=== PATIENT | female | born 1980 | race Hispanic/Latino ===

== ENCOUNTER 2016-12-21 00:15 | Emergency (ER) | payer SELFPAY ==
--- NOTE | 2016-12-21 00:46 | C.PDOC ---
History Of Present Illness 36 year old female who presents to the ER for detox from ETOH. Patient reports she drinks 2 pints of vodka daily; last drink was 2 hours ago. Boyfriend at bedside states patient was intoxicated and somnolent at home; she appears awake and alert now. Denies any physical complaints at this time. Time Seen by Provider: 12/21/16 00:38 Chief Complaint (Nursing): Substance Abuse History Per: Patient History/Exam Limitations: no limitations Onset/Duration Of Symptoms: Days Current Symptoms Are (Timing): Still Present Suicide/Self Injury Attempted (Context): None Modifying Factor(s): Alcohol Associated Symptoms: denies: Depression, Suicidal Thoughts, Suicidal Plan Involuntary Hold By: None Recent travel outside of the [place]: No Past Medical History Reviewed: Historical Data, Nursing Documentation, Vital Signs Vital Signs: Last Vital Signs Temp 97.5 F L 12/21/16 00:55 Pulse 99 H 12/21/16 00:55 Resp 14 12/21/16 00:55 BP 140/90 12/21/16 00:55 Pulse Ox 99 12/21/16 00:55 - Medical History PMH: No Chronic Diseases Surgical History: No Surg Hx Family History: States: Unknown Family Hx - Social History Hx Alcohol Use: Yes Hx Substance Use: No - Immunization History Hx Tetanus Toxoid Vaccination: No Hx Influenza Vaccination: No Hx Pneumococcal Vaccination: No Review Of Systems Constitutional: Negative for: Fever, Chills Gastrointestinal: Negative for: Nausea, Vomiting Physical Exam - Physical Exam Appears: Non-toxic, No Acute Distress, Other (ETOH on breath) Skin: Normal Color, Warm, Dry Head: Atraumatic, Normacephalic Oral Mucosa: Moist Chest: Symmetrical, No Tenderness Cardiovascular: Rhythm Regular, No Murmur Respiratory: Normal Breath Sounds, No Rales, No Rhonchi, No Wheezing Neurological/Psych: Oriented x3, Normal Speech, Normal Cognition ED Course And Treatment O2 Sat by Pulse Oximetry: 97 (Room air) Pulse Ox Interpretation: Normal Progress Note: Case discussed with Crisis, no detox beds available; patient even list of available detox sites in the area. Medical Decision Making Medical Decision Making: alcohol abuse and presently intoxicated- drank 2 pts today seeking detox, no beds available no s/s of withdrawal now- unable to admit medically. Disposition Doctor Will See Patient In The: Office Counseled Patient/Family Regarding: Studies Performed, Diagnosis - Disposition Referrals: Alcoholics Anonymous [Outside] [facility] [Outside] [facility] [Outside] Disposition: HOME/ ROUTINE Disposition Time: 00:50 Condition: GOOD Additional Instructions: seek detox programs through our Crisis Center or local programs. Curb your alcohol abuse as much as possible. Instructions: Abuse of Alcohol (ED) - Clinical Impression Clinical Impression: Alcohol abuse - Scribe Statement The provider has reviewed the documentation as recorded by the Scribflakito Saini All medical record entries made by the Scribe were at my direction and personally dictated by me. I have reviewed the chart and agree that the record accurately reflects my personal performance of the history, physical exam, medical decision making, and the department course for this patient. I have also personally directed, reviewed, and agree with the discharge instructions and disposition.
[2016-12-21 01:01] VITALS: BP 140/90; PULSE 99; RESP 14; TEMP 97.5
[2016-12-21 03:29] VITALS: O2SAT 97
== END 2016-12-21 01:15 | disposition home or self-care (01) ==
LOC: C.ER 00:15
DX: F10.10 Alcohol abuse, uncomplicated (principal); Y90.9 Presence of alcohol in blood, level not specified

== ENCOUNTER 2016-12-30 00:55 | Inpatient (IN) | payer MEDICARE, OTHER ==
[2016-12-30 01:07] VITALS: BMI 33.3
[2016-12-30] MEDS ORDERED: Sodium Chloride 0.9% 1,000 ML IV ONE (01:07)
[2016-12-30] MEDS ORDERED: Naloxone 0.4 mg/ml Inj (Adult) IVP STA (01:07)
[2016-12-30] MEDS ORDERED: Dextrose 50% SYRINGE Inj (50 ml) IVP STA (01:07)
[2016-12-30 01:17] LABS: BASO # 0.2 K/uL (0.0-0.2); EOS # 0.1 K/uL (0.0-0.7); HEMOGLOBIN 13.4 g/dL (11.0-16.0); WHITE BLOOD COUNT 14.2 K/uL (4.8-10.8)
--- NOTE | 2016-12-30 01:17 | C.PDOC ---
History Of Present Illness 36 year old female brought to ER by boyfriend after she claimed she wanted to harm herself half an hour prior to his arrival at home. Boyfriend reports patient was in a normal state of mind; he notes she has access to marijuana and vodka at home- bought a pint of vodka just 2 hrs ago. She told roomate she took an unknown number of "pills" at home, but only OTC motrin/Tylenol/cold medicine in the house. has been taking Tylenol Cold medicines about 2 capsules twice a day for the past 2 days for URI symptoms. Brought to ED in pt's car. Helped into ED by Staff and immedaitly placed on a strecher. Patient has a hx of bipolar disorder and has been off her medication for years. per pt had access to Xanax yesterday and today, but none can be found now. pt obtunded and nonverbal at this time. Time Seen by Provider: 12/30/16 01:06 History Per: Patient History/Exam Limitations: no limitations Onset/Duration Of Symptoms: Hrs Current Symptoms Are (Timing): Still Present Suicide/Self Injury Attempted (Context): None Modifying Factor(s): Alcohol, Marijuana Associated Symptoms: Suicidal Thoughts. denies: Depression, Suicidal Plan Involuntary Hold By: None Recent travel outside of the [place]: No Past Medical History Reviewed: Historical Data, Nursing Documentation, Vital Signs Vital Signs: Last Vital Signs Temp 97.8 F 12/30/16 12:00 Pulse 134 H 12/30/16 12:20 Resp 23 12/30/16 12:20 BP 171/100 H 12/30/16 11:30 Pulse Ox 96 12/30/16 12:00 - Medical History PMH: No Chronic Diseases Surgical History: No Surg Hx Family History: States: Unknown Family Hx - Social History Hx Alcohol Use: Yes Hx Substance Use: No - Immunization History Hx Tetanus Toxoid Vaccination: No Hx Influenza Vaccination: No Hx Pneumococcal Vaccination: No Review Of Systems Constitutional: Negative for: Fever, Chills Gastrointestinal: Negative for: Nausea, Vomiting, Diarrhea Physical Exam - Physical Exam Appears: Non-toxic, Other (ETOH on breath, Obtunded) Skin: Normal Color, Warm, Dry Head: Atraumatic, Normacephalic Eye(s): bilateral: EOMI, Other (Disconjugated pin point pupils) Oral Mucosa: Moist Chest: Symmetrical, No Tenderness Cardiovascular: Rhythm Regular, No Murmur Respiratory: Normal Breath Sounds, No Rales, No Rhonchi, No Wheezing, Other ( Shallow respirations) Gastrointestinal/Abdominal: Soft, No Tenderness Neurological/Psych: Oriented x3, Normal Speech, Normal Cognition ED Course And Treatment - Laboratory Results Result Diagrams: 12/30/16 04:26 12/30/16 04:26 Lab Interpretation: Abnormal (ua neg, 2-hr Tylenol level 61 (if presumed took OD of Tylenol @ 2300), INR wnl, tox + cocaine, benzos, etoh 222 H) Urine POC: Negative ECG: Interpreted By Me ECG Rhythm: Sinus Tachycardia ECG Interpretation: Abnormal (no prolonged QT) Rate From EC O2 Sat by Pulse Oximetry: 96 Pulse Ox Interpretation: Normal - Radiology CXR: Interpreted by Me CXR Interpretation: Yes: No Acute Disease Progress Note: EKG, blood work, CXR, and urinalysis ordered. Dextrose, narcan, zofran, and IV fluids administered. Reevaluation Time: 01:45 (noted elevated Tylenol level 60's which may be c/w use of Tylenol Cold medicines over the past 2 days, but in light of suspected intentional overdose Acetadote immediately ordered and ICU consult ) - Physician Consult Information Outcome Of Conversation: 0145: d/w Dr. Burrows- Hospitalist/ICU Digital Associate- ok to ICU. Will discuss intubation pending ABG and U-tox. 0215: pt turned over to ICU, pt stable, unconscious, protecting airway, no vomiting, VSS, @ bedside. Critical Care Time - Critical Care Note Total Time (in mins): 90 Documented critical care: time excludes all time spent performing seperately billable procedures. Medical Decision Making Medical Decision Makin: accepted to ICU Acetadote inital bolus 150 mg /kg x 80 kg (estimated) = 1200 mg pending f/u Acetadote drips pending Tylenol level curve; 0300: 50 mg/kg over 4 hrs = 4000 mg 0700 100 mg/kg over 16 hrs = [address] in pt neurologically normal 2 hrs ago and strong evidence of intentional overdose and no brain trauma/injury. A/P: cocaine, benzo, etoh abuse. ? tylenol/cold and or tylenol OD, elevated level @ 2 hrs post-ingestion but could be c/w prior known use of cold med preparation Case d/w Poison Control- appreciated NAC 24 hr protocol started empirically, pending repeat levels, follow INR and LFT's Benadryl in Tylenol Cold med prep may offer serotonin syndrome s/s, QT wnl so far, pending repeat. Defer intubation for now, pt stable. Disposition Doctor Will See Patient In The: Hospital Counseled Patient/Family Regarding: Studies Performed - Disposition Disposition: HOSPITALIZED Disposition Time: 02:15 Condition: GUARDED - Clinical Impression Clinical Impression: Tylenol ingestion, Suicide attempt by drug ingestion - Scribe Statement The provider has reviewed the documentation as recorded by the Scribe Chano Saini All medical record entries made by the Scribe were at my direction and personally dictated by me. I have reviewed the chart and agree that the record accurately reflects my personal performance of the history, physical exam, medical decision making, and the department course for this patient. I have also personally directed, reviewed, and agree with the discharge instructions and disposition.
[2016-12-30 01:19] LABS: BASO % 1.1 % (0.0-2.0); EOS % 0.8 % (0.0-4.0); LYMPH # 2.7 K/uL (1.0-4.3); LYMPH % 19.2 % (20.0-40.0); MEAN CORPUSCULAR HEMOGLOBIN 30.1 pg (27.0-31.0); MEAN CORPUSCULAR HGB CONC 32.7 g/dL (33.0-37.0); MONO # 0.9 K/uL (0.0-0.8); NEUT # 10.3 K/uL (1.8-7.0); NEUT % 72.9 % (50.0-75.0); RBC 4.46 Mil/uL (3.80-5.20); RED CELL DISTRIBUTION WIDTH 15.3 % (11.5-14.5)
[2016-12-30] MEDS ORDERED: Dextrose 50% SYRINGE Inj (50 ml) ONE (01:19)
[2016-12-30 01:24] LABS: ALBUMIN 3.9 g/dL (3.5-5.0)
[2016-12-30 01:27] LABS: ALB/GLOB RATIO 1.4 (1.0-2.1); AST/SGOT 19 U/L (14-36); GFR AFRICAN-AMERICAN > 60; GFR NON-AFRICAN AMERICAN > 60
[2016-12-30 01:28] LABS: ALT/SGPT 33 U/L (9-52); BLOOD UREA NITROGEN 12 mg/dL (7-17); SALICYLATE < 1.0 mg/dL 1
[2016-12-30] MEDS ORDERED: DEXTROSE 5% IVPB STA ×2 (01:38→01:41)
[2016-12-30] MEDS ORDERED: ACETYLCYSTEINE IVPB STA ×2 (01:38→01:41)
[2016-12-30] MEDS ORDERED: WATER IVPB STA ×2 (01:38→01:41)
[2016-12-30] MEDS ORDERED: Acetylcysteine 12,000 MG in Dextrose 5% In Water 200 ML IVPB STA (01:43)
[2016-12-30 02:03] LABS: HCG,QUALITATIVE URINE NEGATIVE (NEGATIVE)
[2016-12-30 02:04] LABS: URINE BILIRUBIN NEGATIVE (NEGATIVE); URINE BLOOD NEGATIVE (NEGATIVE); URINE CLARITY Clear (Clear); URINE COLOR YELLOW (YELLOW); URINE GLUCOSE (UA) 3+ mg/dL (Normal)
[2016-12-30 02:05] LABS: URINE LEUKOCYTE ESTERASE NEGATIVE Leu/uL (Negative); URINE NITRATE NEGATIVE (NEGATIVE); URINE PROTEIN NEGATIVE (NEGATIVE); URINE UROBILINOGEN Normal mg/dL (0.2-1.0)
[2016-12-30 02:15] LABS: BARBITURATES, UR NEGATIVE (NEGATIVE)
[2016-12-30 02:16] LABS: ABG ALLEN TEST POS; ARTERIAL BLOOD GAS HCO3 20.3 mmol/L (21-28); ARTERIAL BLOOD GAS O2 SAT 97.7 % (95-98); ARTERIAL BLOOD GAS PCO2 33 mm/Hg (35-45); ARTERIAL BLOOD GAS PH 7.36 (7.35-7.45); ARTERIAL BLOOD GAS PO2 82 mm/Hg (80-100); ARTERIAL BLOOD GAS TCO2 19.6 mmol/L (22-28)
[2016-12-30 02:17] LABS: OPIATES, UR NEGATIVE (NEGATIVE)
[2016-12-30 02:18] LABS: PHENCYCLIDINE, UR NEGATIVE (NEGATIVE)
[2016-12-30 02:31] LABS: BENZODIAZEPINES, UR POSITIVE (NEGATIVE)
[2016-12-30] MEDS ORDERED: DEXTROSE 5% IVPB ONE ×2 (03:00→08:00)
[2016-12-30] MEDS ORDERED: ACETYLCYSTEINE IVPB ONE ×2 (03:00→08:00)
[2016-12-30] MEDS ORDERED: WATER IVPB ONE ×2 (03:00→08:00)
[2016-12-30] MEDS: Dextrose 5%/Lactated Ringer's 1,000 ML IV SCH ×3 (03:08→09:39)
[2016-12-30 04:29] LABS: BASO # 0.1 K/uL (0.0-0.2); BASO % 0.7 % (0.0-2.0); EOS % 0.2 % (0.0-4.0); HEMOGLOBIN 13.2 g/dL (11.0-16.0); LYMPH # 1.6 K/uL (1.0-4.3); LYMPH % 9.4 % (20.0-40.0); MEAN CELL VOLUME 91.7 fL (81.0-99.0); MEAN CORPUSCULAR HEMOGLOBIN 29.8 pg (27.0-31.0); MEAN CORPUSCULAR HGB CONC 32.5 g/dL (33.0-37.0); MEAN PLATELET VOLUME 8.1 fL (7.2-11.7); MONO # 0.9 K/uL (0.0-0.8); MONO % 5.1 % (0.0-10.0); NEUT % 84.6 % (50.0-75.0); PLATELET COUNT 293 K/uL (130-400); RBC 4.43 Mil/uL (3.80-5.20); RED CELL DISTRIBUTION WIDTH 15.3 % (11.5-14.5); WHITE BLOOD COUNT 16.6 K/uL (4.8-10.8)
[2016-12-30 04:39] LABS: ALBUMIN 3.9 g/dL (3.5-5.0)
[2016-12-30 04:42] LABS: ALB/GLOB RATIO 1.3 (1.0-2.1); ALT/SGPT 26 U/L (9-52); AST/SGOT 36 U/L (14-36); BLOOD UREA NITROGEN 9 mg/dL (7-17); CALCIUM 8.2 mg/dl (8.6-10.4); GFR AFRICAN-AMERICAN > 60; GFR NON-AFRICAN AMERICAN > 60
[2016-12-30 05:27] LABS: BANDS 1 % (0-2); LYMPHOCYTE 9 % (20-40); MONOCYTE 7 % (0-10); NEUTROPHIL 83 % (50-75); PLATELET ESTIMATE NORMAL (NORMAL); TOTAL CELLS COUNTED 100
--- NOTE | 2016-12-30 06:27 | CP.PCM.HP ---
<Hector Fofana E - Last Filed: 12/30/16 07:20> History of Present Illness - History of Present Illness History of Present Illness: CC: Suicidal Ideation HPI: Patient is a 36 year old female with a past medical history of bipolar disorder, alcohol abuse, cocaine/heroine abuse who was brought to the ED by her boyfriend. Patient was obtunded and non-verbal upon arrival to the ED. Patient 's boyfriend reports that patient was in a normal state of mind during the week until she called him at work today stating that " I cannot do this anymore, life is not fair.'' Patient became worried so he called their roommate to check on the patient at home. Patient was found by the roommate at home and told the roommate that she took an unknown number of "pills" at home, but only OTC motrin /Tylenol/cold medicine are in the house. Shortly after, patient's boyfriend arrived at home and noted that patient had access to marijuana and vodka at home - bought a pint of vodka just 2 hrs ago. Patient's boyfriend decide to drive patient to the hospital, who then became less alert and awake during the car ride. Furthermore, patient's boyfriend states that patient meet a addison during the week who is able to supply her with cocaine and also reported that patient has been binge drinking for the past 6 weeks. Patient's boyfriend reports that patient has been off her bipolar medications for years but had access to xanax yesterday and today. Patient vomited in the ED after narcan was given. PMD: None PMHx: Bipolar, alcohol abuse, heroine and cocaine abuse PSHx: None FHx: Unknown Medications: None Allergies: Cephalexin, clindamycin, penicillins and Sulfa Social Hx: Lives with boyfriend Medications given in the ER: Narcan 0.8mg IV, Zofran 4mg IV, Dextrose 50% injection, Acetylcysteine Present on Admission - Present on Admission Any Indicators Present on Admission: No Review of Systems - Constitutional Additional comments: Unable to evalaute as patient was obtunded and non-verbal - Cardiovascular Additional comments: Unable to evalaute as patient was obtunded and non-verbal - Gastrointestinal Additional comments: Unable to evalaute as patient was obtunded and non-verbal - Genitourinary Additional comments: Unable to evalaute as patient was obtunded and non-verbal - Neurological Additional comments: Unable to evalaute as patient was obtunded and non-verbal - Psychiatric Psychiatric: Suicidal Ideation - Endocrine Additional Comments: Unable to evalaute as patient was obtunded and non-verbal Past Patient History - Past Medical History & Family History Past Medical History?: Yes - Past Social History Smoking Status: Never Smoked - PULMONARY Hx Respiratory Disorders: No - NEUROLOGICAL Hx Neurological Disorder: No - HEENT Hx HEENT Problems: No - RENAL Hx Chronic Kidney Disease: No - ENDOCRINE/METABOLIC Hx Endocrine Disorders: No - HEMATOLOGICAL/ONCOLOGICAL Hx Blood Disorders: No - INTEGUMENTARY Hx Dermatological Problems: No - MUSCULOSKELETAL/RHEUMATOLOGICAL Hx Musculoskeletal Disorders: No - GASTROINTESTINAL Hx Gastrointestinal Disorders: No - GENITOURINARY/GYNECOLOGICAL Hx Genitourinary Disorders: No - PSYCHIATRIC Hx Psychophysiologic Disorder: Yes Hx Bipolar Disorder: Yes (has been off meds xyears) Hx Substance Use: Yes (marijuana) - SURGICAL HISTORY Hx Surgeries: No - ANESTHESIA Hx Anesthesia: No Meds Allergies/Adverse Reactions: Allergies Allergy/AdvReac Type Severity Reaction Status Date / Time cephalexin [From Keflex] Allergy Verified 12/21/16 00:31 clindamycin Allergy Verified 12/21/16 00:31 Penicillins Allergy Verified 12/21/16 00:31 Sulfa (Sulfonamide Allergy Verified 12/21/16 00:31 Antibiotics) Physical Exam - Constitutional Additional comments: Obtunded and non-verbal - Head Exam Head Exam: ATRAUMATIC - ENT Exam ENT Exam: Mucous Membranes Moist, Normal Exam - Respiratory Exam Respiratory Exam: Clear to Auscultation Bilateral, NORMAL BREATHING PATTERN - Cardiovascular Exam Cardiovascular Exam: REGULAR RHYTHM, +S1, +S2 - GI/Abdominal Exam GI & Abdominal Exam: Normal Bowel Sounds, Soft - Extremities Exam Extremities exam: Positive for: normal capillary refill, normal inspection - Psychiatric Exam Psychiatric exam: Suicidal Ideation - Skin Skin Exam: Dry, Normal Color, Warm Results - Vital Signs Recent Vital Signs: Last Vital Signs Temp 98.7 F 12/30/16 04:00 Pulse 107 H 12/30/16 05:29 Resp 25 H 12/30/16 05:29 BP 156/90 H 12/30/16 05:30 Pulse Ox 97 12/30/16 05:29 - Labs Result Diagrams: 12/30/16 04:26 12/30/16 04:26 Labs: Laboratory Results - last 24 hr 12/30/16 12/30/16 12/30/16 02:00 02:02 04:26 WBC RBC Hgb Hct MCV MCH MCHC RDW Plt Count MPV Neut % (Auto) Lymph % (Auto) [place] % (Auto) Eos % (Auto) Baso % (Auto) Neut # Lymph # [place] # Eos # Baso # Neutrophils % (Manual) Band Neutrophils % Lymphocytes % (Manual) Monocytes % (Manual) Platelet Estimate Puncture Site Rradial pCO2 33 L pO2 82 HCO3 20.3 L ABG pH 7.36 ABG Total CO2 19.6 L ABG O2 Saturation 97.7 ABG Base Excess -5.9 L Karsten Test Pos ABG Potassium 3.3 L A-a O2 Difference 198.0 Respiratory Index 2.4 Sodium 142.0 Chloride 111.0 H Glucose 123 H Lactate 2.0 Liter Flow 6.0 FiO2 45.0 Potassium Carbon Dioxide Anion Gap BUN Creatinine Est GFR ( Amer) Est GFR (Non-Af Amer) Random Glucose Calcium Total Bilirubin AST ALT Alkaline Phosphatase Total Protein Albumin Globulin Albumin/Globulin Ratio Arterial Blood Potassium 3.3 L Urine Color Yellow Urine Clarity Clear Urine pH 6.0 Ur Specific Anita 1.002 L Urine Protein Negative Urine Glucose (UA) 3+ H Urine Ketones Negative Urine Blood Negative Urine Nitrate Negative Urine Bilirubin Negative Urine Urobilinogen Normal Ur Leukocyte Esterase Negative Urine Microscopic WBC 1 Urine HCG, Qual Negative Valproic Acid < 10.0 L 12/30/16 12/30/16 04:26 04:26 WBC 16.6 H RBC 4.43 Hgb 13.2 Hct 40.6 MCV 91.7 MCH 29.8 MCHC 32.5 L RDW 15.3 H Plt Count 293 MPV 8.1 Neut % (Auto) 84.6 H Lymph % (Auto) 9.4 L [place] % (Auto) 5.1 Eos % (Auto) 0.2 Baso % (Auto) 0.7 Neut # 14.0 H Lymph # 1.6 [place] # 0.9 H Eos # 0.0 Baso # 0.1 Neutrophils % (Manual) 83 H Band Neutrophils % 1 Lymphocytes % (Manual) 9 L Monocytes % (Manual) 7 Platelet Estimate Normal Puncture Site pCO2 pO2 HCO3 ABG pH ABG Total CO2 ABG O2 Saturation ABG Base Excess [place] Test ABG Potassium A-a O2 Difference Respiratory Index Sodium 143 Chloride 104 Glucose Lactate Liter Flow FiO2 Potassium 4.2 Carbon Dioxide 17 L Anion Gap 26 H BUN 9 Creatinine 0.5 L Est GFR ( Amer) > 60 Est GFR (Non-Af Amer) > 60 Random Glucose 91 Calcium 8.2 L Total Bilirubin 0.9 AST 36 D ALT 26 Alkaline Phosphatase < 20 L D Total Protein 6.9 Albumin 3.9 Globulin 3.0 Albumin/Globulin Ratio 1.3 Arterial Blood Potassium Urine Color Urine Clarity Urine pH Ur Specific Anita Urine Protein Urine Glucose (UA) Urine Ketones Urine Blood Urine Nitrate Urine Bilirubin Urine Urobilinogen Ur Leukocyte Esterase Urine Microscopic WBC Urine HCG, Qual Valproic Acid Assessment & Plan (1) Suicide attempt by drug ingestion Assessment and Plan: Psychiatry Consult ( ) ---> help appreciated Toxicology: * Acetaminophen: 61 * Alcohol level: 222 UDS: * (+) Benodiazepines * (+) Cocaine In the ED: * Zofran 4mg IV * Narcan 0.8mg IV * Dextrose 50% inj * Acetylcysteine 12,000mg, 4000mg and 12,800mg in dextrose Continue Dextrose/LR 1000mls @150mls.hr Hawk Cath in place Serial EKGs Recheck Acetaminophen levels Status: Acute (2) History of bipolar disorder Assessment and Plan: Psychiatry Consult ( ) ---> help appreciated Status: Chronic (3) History of cocaine abuse Assessment and Plan: Psychiatry Consult ( ) ---> help appreciated As per patient's boyfriend, patient has been drug free for 3 years Status: Chronic (4) History of heroin abuse Assessment and Plan: Psychiatry Consult ( ) ---> help appreciated As per patient's boyfriend, patient has been drug free for 3 years Status: Chronic (5) History of alcohol abuse Assessment and Plan: Psychiatry Consult ( ) ---> help appreciated Seizure precautions Status: Chronic (6) Prophylactic measure Assessment and Plan: SCD Pepcid 20mg IV Q12H Heparin 5,000 units SC Q12H Seizure precautions Status: Acute <Edin Burrows P - Last Filed: 12/31/16 06:31> Results - Vital Signs Recent Vital Signs: Last Vital Signs Temp 98 F 12/30/16 16:00 Pulse 95 H 12/31/16 02:20 Resp 22 12/31/16 02:20 BP 161/81 H 12/31/16 01:30 Pulse Ox 94 L 12/30/16 23:50 - Labs Result Diagrams: 12/30/16 04:26 12/30/16 22:17 Labs: Laboratory Results - last 24 hr 12/30/16 12/30/16 12/30/16 09:43 22:17 22:17 PT 12.2 12.5 H INR 1.1 1.1 APTT 26 Sodium 137 Potassium 2.7 L Chloride 106 Carbon Dioxide 16 L Anion Gap 18 BUN 4 L Creatinine 0.6 L Est GFR ( Amer) > 60 Est GFR (Non-Af Amer) > 60 Random Glucose 93 Calcium 8.5 L Total Bilirubin 0.6 Direct Bilirubin 0.4 AST 30 ALT 35 Alkaline Phosphatase 44 Total Protein 5.8 L Albumin 3.3 L Globulin 2.5 Albumin/Globulin Ratio 1.3 Acetaminophen 12/30/16 22:17 PT INR APTT Sodium Potassium Chloride Carbon Dioxide Anion Gap BUN Creatinine Est GFR ( Amer) Est GFR (Non-Af Amer) Random Glucose Calcium Total Bilirubin Direct Bilirubin AST ALT Alkaline Phosphatase Total Protein Albumin Globulin Albumin/Globulin Ratio Acetaminophen < 10.0 L Attending/Attestation - Attestation I have personally seen and examined this patient.: Yes I have fully participated in the care of the patient.: Yes I have reviewed all pertinent clinical information: Yes Notes (Text): 36 F suicidal attempt with bunch of meds at home around 11 pm, details not available, labs show, +benzo, +acetaminophen, +alcohol, small anion gap without ketosis or lacticticacidosis suggesting meds with anions. Patient is lethargic maintaining breathing, airway, QRS, QT not prolonged. * Patient will be monitored in icu with supportive care, * N-acethylcystine 21hr total 300mg/kg dose, isotonic ivf, hawk, serial EKG, acetaminophen level at time of finishing n-acethycystine if around 10pm today, * gi/dvt prophylaxis, * seizure/aspiration precautions, * pshych eval when awake.
--- NOTE | 2016-12-30 06:53 | CP.PCM.PN ---
Subjective - Date & Time of Evaluation Date of Evaluation: 12/30/16 Time of Evaluation: 03:00 - Subjective Subjective: 36 F suicidal attempt with bunch of meds at home around 11 pm, details not available, labs show, +benzo, +acetaminophen, +alcohol, small anion gap without ketosis or lacticticacidosis suggesting meds with anions. Patient is lethargic maintaining breathing, airway, QRS, QT not prolonged. * Patient will be monitored in icu with supportive care, * N-acethylcystine 21hr total 300mg/kg dose, isotonic ivf, hawk, serial EKG, acetaminophen level at time of finishing n-acethycystine if around 10pm today, * gi/dvt prophylaxis, * seizure/aspiration precautions, * pshych eval when awake. Objective - Vital Signs/Intake and Output Vital Signs (last 24 hours): Temp Pulse Resp BP Pulse Ox 98.7 F 114 H 23 130/63 97 12/30/16 04:00 12/30/16 06:23 12/30/16 06:23 12/30/16 06:23 12/30/16 05:30 Intake and Output: 12/29/16 12/30/16 18:59 06:59 Intake Total 1000 Output Total 1150 Balance -150 - Medications Medications: Current Medications Famotidine (Pepcid) 20 mg IVP Q12H [facility] Last Admin: 12/30/16 04:11 Dose: 20 mg Heparin Sodium (Porcine) (Heparin) 5,000 units SC Q12 [facility] Acetylcysteine 4,000 mg/ (Dextrose) 220 mls @ 50 mls/hr IVPB ONCE ONE Stop: 12/30/16 07:23 Last Admin: 12/30/16 04:10 Dose: 50 mls/hr Dextrose/Lactated Ringer's (Dextrose 5%/Lactated Ringer's) 1,000 mls @ 150 mls/ hr IV .Q6H40M [facility] Last Admin: 12/30/16 04:40 Dose: 150 mls/hr - Labs Labs: 12/30/16 04:26 12/30/16 04:26
[2016-12-30 10:09] LABS: INR 1.1; PROTHROMBIN TIME 12.2 SECONDS (9.7-12.2)
[2016-12-30] MEDS ORDERED: Midazolam 2 MG/2 ML VIAL ONE (10:19)
--- NOTE | 2016-12-30 11:16 | RAD ---
PROCEDURE: CHEST RADIOGRAPH, 1 VIEW HISTORY: Overdosed COMPARISON: None available. FINDINGS: LUNGS: Small opacities at the lung bases larger on the left may represent atelectasis. PLEURA: No pneumothorax or pleural fluid seen. CARDIOVASCULAR: Normal. OSSEOUS STRUCTURES: No significant abnormalities. VISUALIZED UPPER ABDOMEN: Normal. OTHER FINDINGS: None. IMPRESSION: Small basilar opacities more prominent on the left side may represent atelectasis.
[2016-12-30] MEDS ORDERED: Midazolam 2 MG/2 ML VIAL IVP ONE (12:24)
[2016-12-30] MEDS: Dextrose 5%/0.45% NS 1,000 ML IV SCH ×2 (12:55→20:08)
--- NOTE | 2016-12-30 13:07 | PCM.PSYCH ---
Initial Psychiatric Evaluation - Initial Psychiatric Evaluation Type of Admission: Voluntary Legal Status: Capacity Chief Complaint (in patient's own words): I dont know History of Present Illness and Precipitating Events: This is a 36 CF, who currently lives with her boyfriend was escorted to the hospital with a suspected overdosed. Pt was consulted because of disorganized behavior. Patient remained disorganized and internally preoccupied throughout the interview. She remained a poor historian. She couldn't tell her name, address and phone number. As per the hospital record she has been found unconscious at home. She was escorted to the hospital after drinking and suspected overdose on Tylenol. As per the staff, patient has been very irritable, aggressive, and agitated. She was trying to take her IV lines out and continuously mumbling and cursing at the staff. Soft restraints were put on her hands and she was put on 1 :1. She remained delirious and disoriented to time place and person. Past medical history None reported Current Medications: Active Medications Generic Name Dose Route Start Last Admin Trade Name Freq PRN Reason Stop Dose Admin Famotidine 20 mg 12/30/16 03:15 12/30/16 04:11 Pepcid IVP 20 mg Q12H YUNIEL Administration Heparin Sodium (Porcine) 5,000 units 12/30/16 10:00 12/30/16 09:24 Heparin SC 5,000 units Q12 YUNIEL Administration Acetylcysteine 9,290 mg/ 1,046.45 mls @ 65.403 mls/hr 12/30/16 08:00 08:44 Dextrose IVPB 12/30/16 23:59 65.403 mls/hr ONCE ONE Administration Dextrose/Sodium Chloride 1,000 mls @ 150 mls/hr 12/30/16 12:30 12/30/16 12:55 Dextrose 5%/0.45% Ns 1000 Ml IV 150 mls/hr .Q6H40M YUNIEL Administration Lorazepam 1 mg 12/30/16 12:27 12/30/16 13:00 Ativan IVP 1 mg Q4H PRN Administration Symptoms of alcohol withdrawl Past Psychiatric History - Past Psychiatric History Previous Treatment History: None Pertinent Medical Hx (Current Medical&Sleep Prob, Allergies): Allergies Allergy/AdvReac Type Severity Reaction Status Date / Time cephalexin [From Keflex] Allergy Verified 12/21/16 00:31 clindamycin Allergy Verified 12/21/16 00:31 Penicillins Allergy Verified 12/21/16 00:31 Sulfa (Sulfonamide Allergy Verified 12/21/16 00:31 Antibiotics) No Known Home Med 12/21/16 Review of Systems - Review of Systems All systems: reviewed and no additional remarkable complaints except - Psychiatric Psychiatric: Anxiety, Irritability, Mood Swings, Suicidal Ideation Mental Status Examination - Personal Presentation Personal Presentation: Looks stated age - Affect Affect: Broad - Motor Activity Motor Activity: Psychomotor Agitation - Reliability in Providing Information Reliability in Providing Information: Poor, due to alteration in thoughts, Poor , due to altered mood, Poor, due to cognitve impairment - Speech Speech: Disorganized - Mood Mood: Other (labile) - Formal Thought Process Formal Thought Process: Hallucinations, Delusions, Paranoia, Loosening of associations - Hallucinations/Delusions Hallucinations: Visual Delusions: Persecution - Obsessions/Compulsions Obsessions: No Compulsions: No - Cognitive Functions Orientation: Person Sensorium: Drowsy, Stuporous Attention/Concentration: Easily distracted Judgement: Imparied, as evidence by: Poor judgement, Imparied, as evidence by: Lack of insight into illness - Risk Risk: Diminished functioning - Strength & Assets Inventory Strength & Assets Inventory: Family support DSM 5 DX - DSM 5 DSM 5 Diagnosis: Delirium Alcohol use disorder moderate Cocaine use disorder moderate Bipolar disorder moderate - Recommended/Plan of Treatment Treatment Recommendations and Plan of Treatment: Delirium Alcohol use disorder moderate Cocaine use disorder moderate Bipolar disorder moderate Hold all the meds Continue 1:1 - Smoking Cessation Smoking Cessation Initiated: No
[2016-12-30] MEDS ORDERED: Folic Acid 1 MG, Thiamine 100 MG, Multivitamin (MVI) 10 ML in Dextrose 5% In Water 1,00... IV SCH (19:30)
[2016-12-30 22:28] LABS: INR 1.1; PROTHROMBIN TIME 12.5 SECONDS (9.7-12.2)
[2016-12-30 22:30] LABS: ALBUMIN 3.3 g/dL (3.5-5.0)
[2016-12-30 22:32] LABS: GFR AFRICAN-AMERICAN > 60; GFR NON-AFRICAN AMERICAN > 60
[2016-12-30 22:33] LABS: ALB/GLOB RATIO 1.3 (1.0-2.1); ALT/SGPT 35 U/L (9-52); AST/SGOT 30 U/L (14-36); BILIRUBIN,DIRECT 0.4 mg/dL (0.0-0.4); BLOOD UREA NITROGEN 4 mg/dL (7-17); CALCIUM 8.5 mg/dl (8.6-10.4)
[2016-12-30] MEDS ORDERED: Potassium Chloride 20 mEq ER Tab PO STA (23:27)
[2016-12-31] MEDS: Potassium Chl 10 mEq in D5-1/2 1,000 ML IV SCH ×4 (00:43→19:36)
[2016-12-31 06:22] LABS: BASO # 0.1 K/uL (0.0-0.2); EOS # 0.3 K/uL (0.0-0.7); EOS % 3.5 % (0.0-4.0); HEMOGLOBIN 11.9 g/dL (11.0-16.0); LYMPH # 2.1 K/uL (1.0-4.3); MEAN CELL VOLUME 91.2 fL (81.0-99.0); MEAN CORPUSCULAR HEMOGLOBIN 30.3 pg (27.0-31.0); MEAN CORPUSCULAR HGB CONC 33.2 g/dL (33.0-37.0); MEAN PLATELET VOLUME 7.8 fL (7.2-11.7); MONO # 0.5 K/uL (0.0-0.8); MONO % 6.6 % (0.0-10.0); NEUT % 62.9 % (50.0-75.0); RBC 3.92 Mil/uL (3.80-5.20); RED CELL DISTRIBUTION WIDTH 15.1 % (11.5-14.5)
[2016-12-31 06:30] LABS: ALBUMIN 3.1 g/dL (3.5-5.0); ALT/SGPT 30 U/L (9-52); AST/SGOT 29 U/L (14-36); BLOOD UREA NITROGEN 4 mg/dL (7-17); CALCIUM 8.2 mg/dl (8.6-10.4); GFR AFRICAN-AMERICAN > 60; GFR NON-AFRICAN AMERICAN > 60; MAGNESIUM 1.9 mg/dL (1.6-2.3)
[2016-12-31 06:34] LABS: ALB/GLOB RATIO 1.2 (1.0-2.1)
[2016-12-31] MEDS ORDERED: Folic Acid 1 MG, Thiamine 100 MG, Multivitamin (MVI) 10 ML in Dextrose 5% In Water 1,00... IV SCH ×2 (11:15→19:30)
--- NOTE | 2016-12-31 12:00 | CP.CCUPN ---
CCU Subjective - Physician Review Subjective (Free Text): 12/31/16 11:57 Patient seen and examined at bedside in the AM. Patient states she still feels nauseous but denies vomiting. Patient denies thoughts of harming herself. Patient denies recollection of events prior to hospitalization. Patient denies chest pain, palpations, or dyspnea. CCU Objective - Vital Signs / Intake & Output Intake and Output (Last 8hrs): Intake & Output 12/30/16 12/31/16 12/31/16 22:59 06:59 14:59 Intake Total 1704 1264 150 Output Total 1075 1600 200 Balance 629 -336 -50 Intake: Intake, IV Amount 1654 1264 150 Right Antecubital 504 189 Right Distal Port 1150 1075 150 Antecubital Oral 50 Output: Urine 1075 1600 200 Urethral (Hawk) 1075 1600 200 - Physical Exam Head: Positive for: Atraumatic, Normocephalic Pupils: Positive for: PERRL Extroacular Muscles: Positive for: EOMI Conjunctiva: Positive for: Normal Mouth: Positive for: Moist Mucous Membranes Respiratory/Chest: Positive for: Clear to Auscultation, Good Air Exchange. Negative for: Respiratory Distress, Wheezes, Rales, Rhonchi Cardiovascular: Positive for: Regular Rate and Rhythm, Normal S1, S2, Tachycardic Abdomen: Positive for: Normal Bowel Sounds. Negative for: Tenderness, Distention Genitourinary/Pelvic Exam: Positive for: Other (hawk) Upper Extremity: Positive for: Normal Inspection. Negative for: Edema Lower Extremity: Positive for: Normal Inspection. Negative for: Edema Neurological: Positive for: GCS=15, Speech Normal Psychiatric: Positive for: Alert, Oriented x 3, Normal Insight, Normal Concentration. Negative for: Suicidal Ideation - Medications Active Medications: Active Medications Generic Name Dose Route Start Last Admin Trade Name Freq PRN Reason Stop Dose Admin Famotidine 20 mg 12/30/16 03:15 12/31/16 02:52 Pepcid IVP 20 mg Q12H YUNIEL Administration Heparin Sodium (Porcine) 5,000 units 12/30/16 10:00 12/31/16 11:22 Heparin SC 5,000 units Q12 YUNIEL Administration Potassium Chloride/Dextrose/Sod Cl 1,000 mls @ 150 mls/hr 12/30/16 23:30 11:22 Potassium Chl 10 Meq In D5-1/2ns IV 150 mls/hr .Q6H40M YUNIEL Administration Folic Acid 1 mg/ Thiamine HCl 1,011.2 mls @ 125 mls/hr 12/31/16 19:30 100 mg/ Multivitamins/Vitamin IV C 10 ml/ Dextrose DAILY@1930 YUNIEL Lorazepam 1 mg 12/30/16 12:27 12/30/16 22:20 Ativan IVP 1 mg Q4H PRN Administration Symptoms of alcohol withdrawl - Patient Studies Lab Studies: Microbiology Studies 12/30/16 Unknown MRSA Culture (Admit) - Final Nose MRSA NOT DETECTED Lab Studies 12/31/16 12/31/16 12/31/16 Range/Units 10:34 06:15 06:15 WBC 8.0 D (4.8-10.8) K/uL RBC 3.92 (3.80-5.20) Mil/uL Hgb 11.9 (11.0-16.0) g/dL Hct 35.7 (34.0-47.0) % MCV 91.2 (81.0-99.0) fL MCH 30.3 (27.0-31.0) pg MCHC 33.2 (33.0-37.0) g/dL RDW 15.1 H (11.5-14.5) % Plt Count 219 (130-400) K/uL MPV 7.8 (7.2-11.7) fL Neut % (Auto) 62.9 (50.0-75.0) % Lymph % (Auto) 26.0 (20.0-40.0) % Garvin % (Auto) 6.6 (0.0-10.0) % Eos % (Auto) 3.5 (0.0-4.0) % Baso % (Auto) 1.0 (0.0-2.0) % Neut # 5.0 (1.8-7.0) K/uL Lymph # 2.1 (1.0-4.3) K/uL Garvin # 0.5 (0.0-0.8) K/uL Eos # 0.3 (0.0-0.7) K/uL Baso # 0.1 (0.0-0.2) K/uL PT 11.0 (9.7-12.2) SECONDS INR 1.0 Sodium 136 (132-148) mmol/L Potassium 3.6 (3.6-5.2) mmol/L Chloride 107 (98-107) mmol/L Carbon Dioxide 19 L (22-30) mmol/L Anion Gap 14 (10-20) BUN 4 L (7-17) mg/dL Creatinine 0.6 L (0.7-1.2) MG/DL Est GFR ( Amer) > 60 Est GFR (Non-Af Amer) > 60 Random Glucose 86 (65-105) mg/dL Calcium 8.2 L (8.6-10.4) mg/dl Phosphorus 3.8 (2.5-4.5) mg/dL Magnesium 1.9 (1.6-2.3) mg/dL Total Bilirubin 0.5 (0.2-1.3) mg/dL Direct Bilirubin (0.0-0.4) mg/dL AST 29 (14-36) U/L ALT 30 (9-52) U/L Alkaline Phosphatase 46 (38-126) U/L Total Protein 5.6 L (6.3-8.3) g/dL Albumin 3.1 L (3.5-5.0) g/dL Globulin 2.5 (2.2-3.9) gm/dL Albumin/Globulin Ratio 1.2 (1.0-2.1) Acetaminophen (10.0-30.0) ug/mL 12/30/16 12/30/16 12/30/16 Range/Units 22:17 22:17 22:17 WBC (4.8-10.8) K/uL RBC (3.80-5.20) Mil/uL Hgb (11.0-16.0) g/dL Hct (34.0-47.0) % MCV (81.0-99.0) fL MCH (27.0-31.0) pg MCHC (33.0-37.0) g/dL RDW (11.5-14.5) % Plt Count (130-400) K/uL MPV (7.2-11.7) fL Neut % (Auto) (50.0-75.0) % Lymph % (Auto) (20.0-40.0) % Garvin % (Auto) (0.0-10.0) % Eos % (Auto) (0.0-4.0) % Baso % (Auto) (0.0-2.0) % Neut # (1.8-7.0) K/uL Lymph # (1.0-4.3) K/uL Garvin # (0.0-0.8) K/uL Eos # (0.0-0.7) K/uL Baso # (0.0-0.2) K/uL PT 12.5 H (9.7-12.2) SECONDS INR 1.1 Sodium 137 (132-148) mmol/L Potassium 2.7 L (3.6-5.2) mmol/L Chloride 106 (98-107) mmol/L Carbon Dioxide 16 L (22-30) mmol/L Anion Gap 18 (10-20) BUN 4 L (7-17) mg/dL Creatinine 0.6 L (0.7-1.2) MG/DL Est GFR ( Amer) > 60 Est GFR (Non-Af Amer) > 60 Random Glucose 93 (65-105) mg/dL Calcium 8.5 L (8.6-10.4) mg/dl Phosphorus (2.5-4.5) mg/dL Magnesium (1.6-2.3) mg/dL Total Bilirubin 0.6 (0.2-1.3) mg/dL Direct Bilirubin 0.4 (0.0-0.4) mg/dL AST 30 (14-36) U/L ALT 35 (9-52) U/L Alkaline Phosphatase 44 (38-126) U/L Total Protein 5.8 L (6.3-8.3) g/dL Albumin 3.3 L (3.5-5.0) g/dL Globulin 2.5 (2.2-3.9) gm/dL Albumin/Globulin Ratio 1.3 (1.0-2.1) Acetaminophen < 10.0 L (10.0-30.0) ug/mL Laboratory Results - last 24 hr 12/30/16 12/30/16 12/30/16 22:17 22:17 22:17 WBC RBC Hgb Hct MCV MCH MCHC RDW Plt Count MPV Neut % (Auto) Lymph % (Auto) Garvin % (Auto) Eos % (Auto) Baso % (Auto) Neut # Lymph # Garvin # Eos # Baso # PT 12.5 H INR 1.1 Sodium 137 Potassium 2.7 L Chloride 106 Carbon Dioxide 16 L Anion Gap 18 BUN 4 L Creatinine 0.6 L Est GFR ( Amer) > 60 Est GFR (Non-Af Amer) > 60 Random Glucose 93 Calcium 8.5 L Phosphorus Magnesium Total Bilirubin 0.6 Direct Bilirubin 0.4 AST 30 ALT 35 Alkaline Phosphatase 44 Total Protein 5.8 L Albumin 3.3 L Globulin 2.5 Albumin/Globulin Ratio 1.3 Acetaminophen < 10.0 L 12/31/16 12/31/16 12/31/16 06:15 06:15 10:34 WBC 8.0 D RBC 3.92 Hgb 11.9 Hct 35.7 MCV 91.2 MCH 30.3 MCHC 33.2 RDW 15.1 H Plt Count 219 MPV 7.8 Neut % (Auto) 62.9 Lymph % (Auto) 26.0 Garvin % (Auto) 6.6 Eos % (Auto) 3.5 Baso % (Auto) 1.0 Neut # 5.0 Lymph # 2.1 Garvin # 0.5 Eos # 0.3 Baso # 0.1 PT 11.0 INR 1.0 Sodium 136 Potassium 3.6 Chloride 107 Carbon Dioxide 19 L Anion Gap 14 BUN 4 L Creatinine 0.6 L Est GFR ( Amer) > 60 Est GFR (Non-Af Amer) > 60 Random Glucose 86 Calcium 8.2 L Phosphorus 3.8 Magnesium 1.9 Total Bilirubin 0.5 Direct Bilirubin AST 29 ALT 30 Alkaline Phosphatase 46 Total Protein 5.6 L Albumin 3.1 L Globulin 2.5 Albumin/Globulin Ratio 1.2 Acetaminophen Fingerstick Blood Sugar Results: 64 Review of Systems - Constitutional Constitutional: absent: Fever - Cardiovascular Cardiovascular: absent: Chest Pain, Dyspnea, Palpitations - Respiratory Respiratory: absent: Dyspnea - Gastrointestinal Gastrointestinal: Nausea. absent: Constipation, Diarrhea, Vomiting - Neurological Neurological: absent: Headaches - Psychiatric Psychiatric: absent: Suicidal Ideation Critical Care Progress Note - Nutrition Nutrition: Nutrition Category Date Time Status Regular Diet [DIET] Diets 12/31/16 Lunch Active Assessment/Plan - Assessment and Plan (Free Text) Assessment: Patient is a 36 year old female with a past medical history of bipolar disorder , alcohol abuse, cocaine/heroine abuse who was brought to the ED by her boyfriend. Plan: Neuro: - history of bipolar disorder, alcohol abuse, cocaine abuse, heroine abuse - Ativan 1mg IVP Q4H - 1:1 observation - Psych Consult: Dr. Le --> help appreciated - f/u head CT w/o contrast Pulm: - No acute issues CV: No acute issues Hem: No acute issues Renal: No acute issues; Discontinued [facility] Endo: GI: Regular Diet ID: No acute issues DVT proph - Heparin 5,000 units SC Q12 GI proph - 20mg Pepcid PO daily Code status - full code Disposition: Transferred to Regular Medical Floor Case discussed with Dr. Amparo Michael PGY-1
--- NOTE | 2016-12-31 12:56 | CARD ---
APPROVED REPORT EKG Measurement Heart [id number] MA [id number] <Conclusion> Sinus tachycardia Otherwise normal ECG
--- NOTE | 2016-12-31 13:12 | PCM.PYCHPN ---
Psychiatric Progress Note - Psychiatric Progress Note Patient seen today, length of contact: 16 min Patient Chief Complaint: I am feeling much better.' Problems Identified/Issues Discussed: Pt was seen and evaluated and chart reviewed and discussed with the staff. Today pt was more organized and appeared less confused and paranoid. She became calm and cooperative and stated that she was drinking and accidentally she OD on tylenol. She denied any SI or Suicidal Attempt. She reports a long history of drinking and states that she has stopped taking her bipolar meds. Patient reports drinking 1-2 pints on a daily basis along with some cocaine. She is AAO X 3. She is requesting to bipolar medications. Supportive therapy and psychoeducation were given. Medication Change: Yes (Start depakote, start trazodone) Medical Record Reviewed: Yes Mental Status Examination - Cognitive Function Orientation: Person Memory: Intact Attention: WNL Concentration: Poor Association: WNL Fund of Knowledge: Poor - Mood Mood: Anxious - Affect Affect: Constricted - Speech Speech: Soft - Formal Thought Process Formal Thought Process: No Impairment - Suicidal Ideation Suicidal Ideation: No - Homicidal Ideation Homicidal Ideation: No Goal/Treatment Plan - Goal/Treatment Plan Need for Continued Stay: Discharge may exacerbated symptoms, Severe functional impairment Progress Toward Problem(s) and Goals/Treatment Plan: Alcohol use disorder severe CBT Psychoeducation Supportive therapy, individual therapy Use [place] for abstinence Cocaine use disorder moderate CBT Psychoeducation Supportive therapy, individual therapy Use [place] for abstinence Bipolar disorder mixed moderate CBT Psychoeducation Supportive therapy, individual therapy Start Depakote 250 mg PO BID Start Trazodone 50 mg PO QHS - Smoking Cessation Smoking Cessation Initiated: No
[2016-12-31] MEDS: Divalproex 250 mg DR Tab PO SCH ×2 (14:43→17:27)
--- NOTE | 2016-12-31 16:06 | CT ---
PROCEDURE: CT HEAD WITHOUT CONTRAST. HISTORY: R/O STROKE (EXPRESSIVE APHASIA) COMPARISON: None available. TECHNIQUE: Axial computed tomography images were obtained through the head/brain without intravenous contrast. Radiation dose: Total exam DLP = 946.28 mGy-cm. This CT exam was performed using one or more of the following dose reduction techniques: Automated exposure control, adjustment of the mA and/or kV according to patient size, and/or use of iterative reconstruction technique. FINDINGS: HEMORRHAGE: No intracranial hemorrhage. BRAIN: No mass effect or edema. No atrophy or chronic microvascular ischemic changes. VENTRICLES: Unremarkable. No hydrocephalus. CALVARIUM: Unremarkable. PARANASAL SINUSES: Unremarkable as visualized. No significant inflammatory changes. MASTOID AIR CELLS: Unremarkable as visualized. No inflammatory changes. OTHER FINDINGS: None. IMPRESSION: No evidence of acute infarct. Unremarkable CT examination of the head.
[2017-01-01] MEDS: Potassium Chl 10 mEq in D5-1/2 1,000 ML IV SCH ×2 (04:00→06:53)
[2017-01-01 08:14] VITALS: BP 109/69; PULSE 92; RESP 18; TEMP 98.2; O2SAT 97
[2017-01-01] MEDS: Divalproex 250 mg DR Tab PO SCH (10:35)
--- NOTE | 2017-01-01 11:53 | PCM.PYCHPN ---
Psychiatric Progress Note - Psychiatric Progress Note Patient seen today, length of contact: 16 min Patient Chief Complaint: I am feeling much better.' Problems Identified/Issues Discussed: Pt was seen and evaluated and chart reviewed and discussed with the staff. Today pt more coherent. She denied any AVH and denies any SI/SA. She remained calm and cooperative and stated that bipolar meds ar working. She denied any side effects. Pt psychiatrically cleared. Supportive therapy and psychoeducation were given. Medication Change: No (Start depakote, start trazodone) Medical Record Reviewed: Yes Mental Status Examination - Cognitive Function Orientation: Person Memory: Intact Attention: WNL Concentration: WNL Association: WNL Fund of Knowledge: WNL - Mood Mood: Anxious - Affect Affect: Constricted - Speech Speech: Soft - Formal Thought Process Formal Thought Process: No Impairment - Suicidal Ideation Suicidal Ideation: No - Homicidal Ideation Homicidal Ideation: No Goal/Treatment Plan - Goal/Treatment Plan Need for Continued Stay: Severe functional impairment Progress Toward Problem(s) and Goals/Treatment Plan: Alcohol use disorder severe CBT Psychoeducation Supportive therapy, individual therapy Use [place] for abstinence Cocaine use disorder moderate CBT Psychoeducation Supportive therapy, individual therapy Use [place] for abstinence Bipolar disorder mixed moderate CBT Psychoeducation Supportive therapy, individual therapy Depakote 250 mg PO BID Trazodone 50 mg PO QHS - Smoking Cessation Smoking Cessation Initiated: No
--- NOTE | 2017-01-01 20:09 | CP.PCM.DIS ---
Provider - Provider Date of Admission: 12/30/16 01:58 Attending physician: Edin Burrows MD Consults: Dr. Le Time Spent in preparation of Discharge (in minutes): 45 Diagnosis - Discharge Diagnosis (1) Suicide attempt by drug ingestion Status: Acute (2) Tylenol ingestion Status: Acute (3) History of alcohol abuse Status: Chronic (4) History of bipolar disorder Status: Chronic (5) History of cocaine abuse Status: Chronic (6) History of heroin abuse Status: Chronic Hospital Course - Lab Results Lab Results: Micro Results 12/30/16 Unknown Nose MRSA Culture (Admit) - Final MRSA NOT DETECTED Most Recent Lab Values WBC 8.0 K/uL (4.8-10.8) D 12/31/16 06:15 RBC 3.92 Mil/uL (3.80-5.20) 12/31/16 06:15 Hgb 11.9 g/dL (11.0-16.0) 12/31/16 06:15 Hct 35.7 % (34.0-47.0) 12/31/16 06:15 MCV 91.2 fL (81.0-99.0) 12/31/16 06:15 MCH 30.3 pg (27.0-31.0) 12/31/16 06:15 MCHC 33.2 g/dL (33.0-37.0) 12/31/16 06:15 RDW 15.1 % (11.5-14.5) H 12/31/16 06:15 Plt Count 219 K/uL (130-400) 12/31/16 06:15 MPV 7.8 fL (7.2-11.7) 12/31/16 06:15 Neut % (Auto) 62.9 % (50.0-75.0) 12/31/16 06:15 Lymph % (Auto) 26.0 % (20.0-40.0) 12/31/16 06:15 [place] % (Auto) 6.6 % (0.0-10.0) 12/31/16 06:15 Eos % (Auto) 3.5 % (0.0-4.0) 12/31/16 06:15 Baso % (Auto) 1.0 % (0.0-2.0) 12/31/16 06:15 Neut # 5.0 K/uL (1.8-7.0) 12/31/16 06:15 Lymph # 2.1 K/uL (1.0-4.3) 12/31/16 06:15 [place] # 0.5 K/uL (0.0-0.8) 12/31/16 06:15 Eos # 0.3 K/uL (0.0-0.7) 12/31/16 06:15 Baso # 0.1 K/uL (0.0-0.2) 12/31/16 06:15 Neutrophils % (Manual) 83 % (50-75) H 12/30/16 04:26 Band Neutrophils % 1 % (0-2) 12/30/16 04:26 Lymphocytes % (Manual) 9 % (20-40) L 12/30/16 04:26 Monocytes % (Manual) 7 % (0-10) 12/30/16 04:26 Platelet Estimate Normal (NORMAL) 12/30/16 04:26 PT 11.0 SECONDS (9.7-12.2) 12/31/16 10:34 INR 1.0 12/31/16 10:34 APTT 26 SECONDS (21-34) 12/30/16 09:43 Puncture Site Rradial 12/30/16 02:00 pCO2 33 mm/Hg (35-45) L 12/30/16 02:00 pO2 82 mm/Hg (80-100) 12/30/16 02:00 HCO3 20.3 mmol/L (21-28) L 12/30/16 02:00 ABG pH 7.36 (7.35-7.45) 12/30/16 02:00 ABG Total CO2 19.6 mmol/L (22-28) L 12/30/16 02:00 ABG O2 Saturation 97.7 % (95-98) 12/30/16 02:00 ABG Base Excess -5.9 mmol/L (-2.0-3.0) L 12/30/16 02:00 [place] Test Pos 12/30/16 02:00 ABG Potassium 3.3 mmol/L (3.6-5.2) L 12/30/16 02:00 A-a O2 Difference 198.0 mm/Hg 12/30/16 02:00 Respiratory Index 2.4 12/30/16 02:00 Sodium 142.0 mmol/l (132-148) 12/30/16 02:00 Chloride 111.0 mmol/L (98-107) H 12/30/16 02:00 Glucose 123 mg/dl (65-105) H 12/30/16 02:00 Lactate 2.0 mmol/L (0.7-2.1) 12/30/16 02:00 Liter Flow 6.0 12/30/16 02:00 FiO2 45.0 % 12/30/16 02:00 Sodium 136 mmol/L (132-148) 12/31/16 06:15 Potassium 3.6 mmol/L (3.6-5.2) 12/31/16 06:15 Chloride 107 mmol/L (98-107) 12/31/16 06:15 Carbon Dioxide 19 mmol/L (22-30) L 12/31/16 06:15 Anion Gap 14 (10-20) 12/31/16 06:15 BUN 4 mg/dL (7-17) L 12/31/16 06:15 Creatinine 0.6 MG/DL (0.7-1.2) L 12/31/16 06:15 Est GFR ( Amer) > 60 12/31/16 06:15 Est GFR (Non-Af Amer) > 60 12/31/16 06:15 POC Glucose (mg/dL) 64 mg/dL (65-110) L 12/30/16 01:14 Random Glucose 86 mg/dL (65-105) 12/31/16 06:15 Calcium 8.2 mg/dl (8.6-10.4) L 12/31/16 06:15 Phosphorus 3.8 mg/dL (2.5-4.5) 12/31/16 06:15 Magnesium 1.9 mg/dL (1.6-2.3) 12/31/16 06:15 Total Bilirubin 0.5 mg/dL (0.2-1.3) 12/31/16 06:15 Direct Bilirubin 0.4 mg/dL (0.0-0.4) 12/30/16 22:17 AST 29 U/L (14-36) 12/31/16 06:15 ALT 30 U/L (9-52) 12/31/16 06:15 Alkaline Phosphatase 46 U/L (38-126) 12/31/16 06:15 Total Protein 5.6 g/dL (6.3-8.3) L 12/31/16 06:15 Albumin 3.1 g/dL (3.5-5.0) L 12/31/16 06:15 Globulin 2.5 gm/dL (2.2-3.9) 12/31/16 06:15 Albumin/Globulin Ratio 1.2 (1.0-2.1) 12/31/16 06:15 Arterial Blood Potassium 3.3 mmol/L (3.6-5.2) L 12/30/16 02:00 Urine Color Yellow (YELLOW) 12/30/16 02:02 Urine Clarity Clear (Clear) 12/30/16 02:02 Urine pH 6.0 (5.0-8.0) 12/30/16 02:02 Ur Specific [place] 1.002 (1.003-1.030) L 12/30/16 02:02 Urine Protein Negative mg/dL (NEGATIVE) 12/30/16 02:02 Urine Glucose (UA) 3+ mg/dL (Normal) H 12/30/16 02:02 Urine Ketones Negative mg/dL (NEGATIVE) 12/30/16 02:02 Urine Blood Negative (NEGATIVE) 12/30/16 02:02 Urine Nitrate Negative (NEGATIVE) 12/30/16 02:02 Urine Bilirubin Negative (NEGATIVE) 12/30/16 02:02 Urine Urobilinogen Normal mg/dL (0.2-1.0) 12/30/16 02:02 Ur Leukocyte Esterase Negative Philippe/uL (Negative) 12/30/16 02:02 Urine Microscopic WBC 1 /hpf (0-5) 12/30/16 02:02 Urine HCG, Qual Negative (NEGATIVE) 12/30/16 02:02 Salicylates < 1.0 mg/dL 1 12/30/16 01:13 Urine Opiates Screen Negative (NEGATIVE) 12/30/16 01:54 Urine Methadone Screen Negative (NEGATIVE) 12/30/16 01:54 Acetaminophen < 10.0 ug/mL (10.0-30.0) L 12/30/16 22:17 Ur Barbiturates Screen Negative (NEGATIVE) 12/30/16 01:54 Valproic Acid < 10.0 ug/mL (50.0-100.0) L 12/30/16 04:26 Ur Phencyclidine Scrn Negative (NEGATIVE) 12/30/16 01:54 Ur Amphetamines Screen Negative (NEGATIVE) 12/30/16 01:54 U Benzodiazepines Scrn Positive (NEGATIVE) 12/30/16 01:54 U Oth Cocaine Metabols Positive (NEGATIVE) 12/30/16 01:54 U Cannabinoids Screen Negative (NEGATIVE) 12/30/16 01:54 Alcohol, Quantitative 222 mg/dl (0-10) H 12/30/16 01:13 - Hospital Course Hospital Course: "CC: Suicidal Ideation HPI: Patient is a 36 year old female with a past medical history of bipolar disorder, alcohol abuse, cocaine/heroine abuse who was brought to the ED by her boyfriend. Patient was obtunded and non-verbal upon arrival to the ED. Patient 's boyfriend reports that patient was in a normal state of mind during the week until she called him at work today stating that " I cannot do this anymore, life is not fair.'' Patient became worried so he called their roommate to check on the patient at home. Patient was found by the roommate at home and told the roommate that she took an unknown number of "pills" at home, but only OTC motrin /Tylenol/cold medicine are in the house. Shortly after, patient's boyfriend arrived at home and noted that patient had access to marijuana and vodka at home - bought a pint of vodka just 2 hrs ago. Patient's boyfriend decide to drive patient to the hospital, who then became less alert and awake during the car ride. Furthermore, patient's boyfriend states that patient meet a addison during the week who is able to supply her with cocaine and also reported that patient has been binge drinking for the past 6 weeks. Patient's boyfriend reports that patient has been off her bipolar medications for years but had access to xanax yesterday and today. Patient vomited in the ED after narcan was given." Patient was positive for acetaminophen, alcohol, cocaine, and benzo in the ED. Narcan .8 mg was administered. Patient was still obtunded and nonverbal. Patient transfered to ICU where NAC was administered and next acetaminophen level was <10. Ativan was given. Patient monitored for withdrawal. Patient became more aware on 12/31. Patient did not recall any of the hospital stay up to that point. Patient started on medications for her bipolar disorder by psych : Depakote and Trazadone. Patient transferred out of the ICU. Patient was anxious but feeling much better on 01/01 and medically stable for discharge as per Dr. Mosley. Patient had no SI/ HI and was stable for discharge as per Dr. Le. Patient will follow up with psychiatry as an outpatient. This is a summary of the hospital course. Please see the chart for details. Discharge Exam - Head Exam Head Exam: ATRAUMATIC - Eye Exam Eye Exam: EOMI, Normal appearance, PERRL - ENT Exam ENT Exam: Mucous Membranes Moist - Neck Exam Neck exam: Full Rom - Respiratory Exam Respiratory Exam: Clear to PA & Lateral, NORMAL BREATHING PATTERN, UNREMARKABLE - Cardiovascular Exam Cardiovascular Exam: REGULAR RHYTHM, RRR - GI/Abdominal Exam GI & Abdominal Exam: Normal Bowel Sounds. absent: Distended, Firm, Guarding - Extremities Exam Extremities exam: full ROM, normal inspection - Back Exam Back exam: NORMAL INSPECTION - Neurological Exam Neurological exam: Alert, Oriented x3 - Psychiatric Exam Psychiatric exam: Anxious, Normal Affect, Normal Mood - Skin Skin Exam: Intact, Normal Color, Warm Discharge Plan - Discharge Medications Prescriptions: Divalproex [Depakote DR] 250 mg PO BID #28 tcp hydrOXYzine HCl [Atarax] 25 mg PO BID #28 tab traZODone [Desyrel] 50 mg PO HS #14 tab - Follow Up Plan Condition: GUARDED Disposition: HOME/ ROUTINE Instructions: Trazodone (By mouth), Hydroxyzine (By mouth), Divalproex (By mouth) Additional Instructions: Patient stable for discharge as per Dr. Le (psychiatry) and Dr. Mosley. Patient to start taking the following medications which have been prescribed to her: Depakote Dr 250 mg PO BID Trazodone HCl 50mg PO HS Atarax 25 mg PO BID Patient to follow up with Dr. Le (psychiatry) next week as an outpatient. Patient to return to emergency room immediately if symptoms worsen or return. Instructions explained to patient who understood and agreed. Referrals: Narda Le MD [Staff Provider] -
== END 2017-01-01 12:32 | disposition home or self-care (01) | DRG 918 ==
LOC: C.ER 00:55 → C.9I 01:58 → C.6T 12-31 22:25
PROVIDERS: ADMIT Internal Medicine; ATTEND Internal Medicine
DX: T39.1X2A Poisoning by 4-Aminophenol derivatives, intentional self-harm, initial encounter (principal); F31.62 Bipolar disorder, current episode mixed, moderate; F14.90 Cocaine use, unspecified, uncomplicated; Y90.7 Blood alcohol level of 200-239 mg/100 ml; F10.120 Alcohol abuse with intoxication, uncomplicated; Z91.14 Patient's other noncompliance with medication regimen; Y92.009 Unspecified place in unspecified non-institutional (private) residence as the place of occurrence of the external cause

== ENCOUNTER 2017-01-24 01:10 | Inpatient (IN) | payer MEDICARE, OTHER ==
[2017-01-24 01:14] VITALS: BMI 32.3
[2017-01-24 01:24] LABS: BASO # 0.3 K/uL (0.0-0.2); BASO % 2.4 % (0.0-2.0); EOS # 0.6 K/uL (0.0-0.7); EOS % 4.2 % (0.0-4.0); HEMATOCRIT 38.6 % (34.0-47.0); LYMPH # 4.5 K/uL (1.0-4.3); MEAN CELL VOLUME 93.2 fL (81.0-99.0); MEAN CORPUSCULAR HEMOGLOBIN 30.2 pg (27.0-31.0); MEAN CORPUSCULAR HGB CONC 32.4 g/dL (33.0-37.0); MEAN PLATELET VOLUME 8.6 fL (7.2-11.7); MONO # 0.9 K/uL (0.0-0.8); MONO % 6.3 % (0.0-10.0); RED CELL DISTRIBUTION WIDTH 14.3 % (11.5-14.5)
[2017-01-24] MEDS ORDERED: Naloxone 0.4 mg/ml Inj (Adult) IVP STA (01:29)
[2017-01-24 01:30] LABS: RBC URINE < 1 /hpf (0-3); URINE BACTERIA RARE (<OCC); URINE BILIRUBIN NEGATIVE (NEGATIVE); URINE BLOOD NEGATIVE (NEGATIVE); URINE COLOR Straw (YELLOW); URINE GLUCOSE (UA) NORMAL (Normal); URINE KETONE NEGATIVE (NEGATIVE); URINE LEUKOCYTE ESTERASE NEG Leu/uL (Negative); URINE PROTEIN NEGATIVE (NEGATIVE); URINE UROBILINOGEN NORMAL mg/dL (0.2-1.0); WBC URINE < 1 /hpf (0-5)
--- NOTE | 2017-01-24 01:33 | C.PDOC ---
History Of Present Illness 36 year old female brought in via EMS after she was found unresponsive. Patient over dosed on tylenol with codiene as per spouse. No injuries noted at this time. Chief Complaint (Nursing): Substance Abuse History Per: Patient History/Exam Limitations: no limitations Onset/Duration Of Symptoms: Hrs Current Symptoms Are (Timing): Still Present Modifying Factor(s): Other (Tylenol/codiene) Involuntary Hold By: None Recent travel outside of the [place]: No Past Medical History Reviewed: Historical Data, Nursing Documentation, Vital Signs Vital Signs: Last Vital Signs Temp 98.5 F 01/24/17 01:13 Pulse 97 H 01/24/17 01:13 Resp 20 01/24/17 01:13 BP 104/67 01/24/17 01:13 Pulse Ox 85 L 01/24/17 02:59 - Medical History PMH: Bipolar Disorder (has been off meds xyears), HTN, Migraine Surgical History: No Surg Hx Family History: States: Unknown Family Hx - Social History Hx Alcohol Use: Yes Hx Substance Use: No - Immunization History Hx Tetanus Toxoid Vaccination: No Hx Influenza Vaccination: No Hx Pneumococcal Vaccination: No Review Of Systems Review Of Systems: ROS cannot be obtained secondary to pt's inabilty to answer questions. Physical Exam - Physical Exam Appears: Non-toxic, Other (Lethargic) Skin: Normal Color, Warm, Dry Head: Atraumatic, Normacephalic Oral Mucosa: Moist Chest: Symmetrical, No Tenderness Cardiovascular: Rhythm Regular, No Murmur Respiratory: Normal Breath Sounds, No Rales, No Rhonchi, No Wheezing, Other ( Slow respirations) Gastrointestinal/Abdominal: Soft, No Tenderness ED Course And Treatment - Laboratory Results Result Diagrams: 01/24/17 01:20 01/24/17 01:20 ECG: Interpreted By Me, Viewed By Me ECG Rhythm: Sinus Tachycardia ECG Interpretation: Normal, No Acute Changes Interpretation Of ECG: Sinus tachycardia, otherwise normal tracings Rate From EC O2 Sat by Pulse Oximetry: 85 Pulse Ox Interpretation: Abnormal - CT Scan/US CT Head Other Rad Studies (CT/US): Read By Radiologist, Radiology Report Reviewed CT/US Interpretation: EXAM: CT Head Without Intravenous Contrast. CLINICAL HISTORY: 36 years old, female; Pain; Headache and other: Overdose; Patient HX: 12-31-16; Additional info: R/O. bleed. TECHNIQUE: Axial computed tomography images of the head/brain without intravenous contrast. This CT exam. was performed using one or more of the following dose reduction techniques: automated exposure. control, adjustment of the mA and/or kV according to patient size, and/or use of iterative. reconstruction technique. EXAM DATE/ TIME: 01/24/2017 1:36 AM. COMPARISON: No relevant prior studies available. FINDINGS: No intracranial hemorrhage. No intracranial edema. Punctate hypodensities in the anterior internal capsules bilaterally, possible tiny old lacunar infarcts. No evidence of acute infarct. The sinuses and mastoid air cells are clear. IMPRESSION: No acute findings. Progress Note: 4 mg IV narcan w/ saline administered with good improvement to patient's condition. [facility], and Dr. Christensen, hogshead [facility], were notified of patient's admission. Endotracheal Intubation - Endotracheal Intubation Indication: Respiratory Failure Intubated: Orally Disposition Discussed With Dr.: Avelino Krishnan Doctor Will See Patient In The: Hospital Counseled Patient/Family Regarding: Diagnosis - Disposition Disposition: HOSPITALIZED Disposition Time: 02:22 Condition: STABLE - POA Present On Arrival: None - Clinical Impression Clinical Impression: Drug overdose, intentional - Scribe Statement The provider has reviewed the documentation as recorded by the Scribflakito Saini All medical record entries made by the Trinityibflakito were at my direction and personally dictated by me. I have reviewed the chart and agree that the record accurately reflects my personal performance of the history, physical exam, medical decision making, and the department course for this patient. I have also personally directed, reviewed, and agree with the discharge instructions and disposition.
[2017-01-24 01:36] LABS: ALB/GLOB RATIO 1.5 (1.0-2.1); ALKALINE PHOSPHATASE 44 U/L (38-126); ALT/SGPT 22 U/L (9-52); AST/SGOT 19 U/L (14-36); BILIRUBIN,TOTAL 0.2 mg/dL (0.2-1.3); BLOOD UREA NITROGEN 12 mg/dL (7-17); CALCIUM 7.9 mg/dl (8.6-10.4); CARBON DIOXIDE 12 mmol/L (22-30); CHLORIDE 113 mmol/L (98-107); GFR AFRICAN-AMERICAN > 60; GLUCOSE,RANDOM 111 mg/dL (65-105); POTASSIUM 4.4 mmol/L (3.6-5.2); SODIUM 139 mmol/L (132-148)
[2017-01-24 01:58] LABS: ABG ALLEN TEST POS; ARTERIAL BLOOD HGB O2 SAT 97.1 % (95.0-98.0); CARBOXYHEMOGLOBIN 1.7 % (0.5-1.5); DRAW SITE RRADIAL; HHB 0.2 % (0.0-5.0)
[2017-01-24] MEDS ORDERED: Sodium Chloride 0.9% 1,000 ML ONE (01:59)
[2017-01-24] MEDS ORDERED: Sodium Chloride 0.9% 1,000 ML IV ONE ×3 (01:59)
--- NOTE | 2017-01-24 02:22 | CP.PCM.HP ---
<Trini Hunt - Last Filed: 01/24/17 03:52> History of Present Illness - History of Present Illness History of Present Illness: Patient was evaluated at approximately 3:00AM on 01/24/17. CC: drug overdose HPI: 36 year old female with PMHx significant for Bipolar disorder, HTN , migraine and prior suicidal attempts presents after overdosing on tylenol with codeine at home. Patient was found at approximately 12:15 AM today by her boyfriend at home. It is unclear whether any trauma was involved. Boyfriend was not available bedside to provide more of a history. Patient has a history of suicide attempts in the past, most recently back in December of this year where she ingested an unknown amount of pills in an attempt to end her life. Patient was brought to [facility] and admitted to the ICU for care. She was also evaluated by psychiatry then. On that admission, patient was counseled about following up with psychiatry outpatient. Upon arrival today, patient was quite lethargic even with deep stimulation. Patient was administered 4 mg of narcan and then acetylcysteine. Patient still remained lethargic with worsening respirations and thus the decision was made to intubate. Patient to be transported to the ICU for critical care monitoring. A complete ROS could not be obtained at this time due to patient's clinical presentation. PMHx- as stated above PSHx- Unobtainable. Medical record states that she has not had prior surgeries Fam Hx- Unobtainable. Meds- Unobtainable at this time. Social Hx- prior heroin and cocaine use as well as drug abuse; alcohol use; unclear tobacco history Allergies-Cephalexin, Clindamycin, penicillins and Sulfa ( unclear reaction at this time) PMD- Unknown Present on Admission - Present on Admission Any Indicators Present on Admission: No Review of Systems - Review of Systems Systems not reviewed;Unavailable: Altered Mental Status, Intubated Review of Systems: ROS could not be obtained at this time due to patient's clinical presentation. - Constitutional Constitutional: As Per HPI - EENT Eyes: As Per HPI - Cardiovascular Cardiovascular: As Per HPI - Respiratory Respiratory: As Per HPI - Psychiatric Psychiatric: Depression, Suicidal Ideation Past Patient History - Past Medical History & Family History Past Medical History?: Yes - Past Social History Smoking Status: Light Smoker < 10 Cigarettes Daily Drugs: Cocaine, Opiates, Prescription medications - CARDIAC Hx Hypertension: Yes - PULMONARY Hx Respiratory Disorders: No - NEUROLOGICAL Hx Migraine: Yes - HEENT Hx HEENT Problems: No - RENAL Hx Chronic Kidney Disease: No - ENDOCRINE/METABOLIC Hx Endocrine Disorders: No - HEMATOLOGICAL/ONCOLOGICAL Hx Blood Disorders: No - INTEGUMENTARY Hx Dermatological Problems: No - MUSCULOSKELETAL/RHEUMATOLOGICAL Hx Musculoskeletal Disorders: No - GASTROINTESTINAL Hx Gastrointestinal Disorders: No - GENITOURINARY/GYNECOLOGICAL Hx Genitourinary Disorders: No - PSYCHIATRIC Hx Bipolar Disorder: Yes (has been off meds xyears) Hx Substance Use: No - SURGICAL HISTORY Hx Surgeries: No - ANESTHESIA Hx Anesthesia: No Meds Allergies/Adverse Reactions: Allergies Allergy/AdvReac Type Severity Reaction Status Date / Time cephalexin [From Keflex] Allergy Verified 12/21/16 00:31 clindamycin Allergy Verified 12/21/16 00:31 Penicillins Allergy Verified 12/21/16 00:31 Sulfa (Sulfonamide Allergy Verified 12/21/16 00:31 Antibiotics) Physical Exam - Constitutional Appears: Non-toxic, Confused - Head Exam Head Exam: ATRAUMATIC, NORMAL INSPECTION, NORMOCEPHALIC - Eye Exam Eye Exam: absent: Conjunctival injection, Periorbital swelling, PERRL Pupil Exam: absent: PERRL - Respiratory Exam Respiratory Exam: NORMAL BREATHING PATTERN (post intubation) Additional comments: on ventilator - Cardiovascular Exam Cardiovascular Exam: +S1, +S2 - GI/Abdominal Exam GI & Abdominal Exam: Normal Bowel Sounds, Soft - Extremities Exam Extremities exam: Positive for: normal capillary refill, pedal pulses present. Negative for: pedal edema - Neurological Exam Neurological exam: Altered - Psychiatric Exam Psychiatric exam: Flat Affect - Skin Skin Exam: Dry, Intact, Normal Color, Warm Results - Vital Signs Recent Vital Signs: Last Vital Signs Temp 98.5 F 01/24/17 01:13 Pulse 97 H 01/24/17 01:13 Resp 20 01/24/17 01:13 BP 104/67 01/24/17 01:13 Pulse Ox 85 L 01/24/17 02:01 - Labs Result Diagrams: 01/24/17 01:20 01/24/17 01:20 Labs: Laboratory Results - last 24 hr 01/24/17 01/24/17 01/24/17 01:20 01:20 01:20 WBC 14.0 H D RBC 4.15 Hgb 12.5 Hct 38.6 MCV 93.2 D MCH 30.2 MCHC 32.4 L RDW 14.3 Plt Count 345 D MPV 8.6 Neut % (Auto) 55.1 Lymph % (Auto) 32.0 [place] % (Auto) 6.3 Eos % (Auto) 4.2 H Baso % (Auto) 2.4 H Neut # 7.7 H Lymph # 4.5 H [place] # 0.9 H Eos # 0.6 Baso # 0.3 H Puncture Site pCO2 pO2 HCO3 ABG pH ABG Total CO2 ABG O2 Saturation ABG Base Excess ABG Hemoglobin ABG Carboxyhemoglobin POC ABG HHb (Measured) ABG Methemoglobin [place] Test A-a O2 Difference Respiratory Index Hgb O2 Saturation Liter Flow FiO2 Sodium 139 Potassium 4.4 Chloride 113 H Carbon Dioxide 12 L Anion Gap 18 BUN 12 Creatinine 0.9 Est GFR ( Amer) > 60 Est GFR (Non-Af Amer) > 60 Random Glucose 111 H Calcium 7.9 L Total Bilirubin 0.2 AST 19 ALT 22 Alkaline Phosphatase 44 Total Protein 6.0 L Albumin 3.5 Globulin 2.4 Albumin/Globulin Ratio 1.5 Urine Color Urine Clarity Urine pH Ur Specific [place] Urine Protein Urine Glucose (UA) Urine Ketones Urine Blood Urine Nitrate Urine Bilirubin Urine Urobilinogen Ur Leukocyte Esterase Urine WBC (Auto) Urine RBC (Auto) Urine Bacteria Urine HCG, Qual Salicylates < 1.0 Acetaminophen 68.0 H Alcohol, Quantitative 01/24/17 01/24/17 01/24/17 01:22 01:22 01:30 WBC RBC Hgb Hct MCV MCH MCHC RDW Plt Count MPV Neut % (Auto) Lymph % (Auto) [place] % (Auto) Eos % (Auto) Baso % (Auto) Neut # Lymph # [place] # Eos # Baso # Puncture Site pCO2 pO2 HCO3 ABG pH ABG Total CO2 ABG O2 Saturation ABG Base Excess ABG Hemoglobin ABG Carboxyhemoglobin POC ABG HHb (Measured) ABG Methemoglobin [place] Test A-a O2 Difference Respiratory Index Hgb O2 Saturation Liter Flow FiO2 Sodium Potassium Chloride Carbon Dioxide Anion Gap BUN Creatinine Est GFR ( Amer) Est GFR (Non-Af Amer) Random Glucose Calcium Total Bilirubin AST ALT Alkaline Phosphatase Total Protein Albumin Globulin Albumin/Globulin Ratio Urine Color Straw Urine Clarity Clear Urine pH 6.0 Ur Specific [place] 1.004 Urine Protein Negative Urine Glucose (UA) Normal Urine Ketones Negative Urine Blood Negative Urine Nitrate Negative Urine Bilirubin Negative Urine Urobilinogen Normal Ur Leukocyte Esterase Neg Urine WBC (Auto) < 1 Urine RBC (Auto) < 1 Urine Bacteria Rare Urine HCG, Qual Negative Salicylates Acetaminophen Alcohol, Quantitative 89 H 01/24/17 01:52 WBC RBC Hgb Hct MCV MCH MCHC RDW Plt Count MPV Neut % (Auto) Lymph % (Auto) [place] % (Auto) Eos % (Auto) Baso % (Auto) Neut # Lymph # [place] # Eos # Baso # Puncture Site Rradial pCO2 32 L pO2 136 H HCO3 14.8 L ABG pH 7.23 L ABG Total CO2 14.4 L ABG O2 Saturation 99.8 H ABG Base Excess -13.0 L ABG Hemoglobin 11.4 L ABG Carboxyhemoglobin 1.7 H POC ABG HHb (Measured) 0.2 ABG Methemoglobin 1.0 [place] Test Pos A-a O2 Difference 537.0 Respiratory Index 3.9 Hgb O2 Saturation 97.1 Liter Flow 15.0 FiO2 100.0 Sodium Potassium Chloride Carbon Dioxide Anion Gap BUN Creatinine Est GFR ( Amer) Est GFR (Non-Af Amer) Random Glucose Calcium Total Bilirubin AST ALT Alkaline Phosphatase Total Protein Albumin Globulin Albumin/Globulin Ratio Urine Color Urine Clarity Urine pH Ur Specific [place] Urine Protein Urine Glucose (UA) Urine Ketones Urine Blood Urine Nitrate Urine Bilirubin Urine Urobilinogen Ur Leukocyte Esterase Urine WBC (Auto) Urine RBC (Auto) Urine Bacteria Urine HCG, Qual Salicylates Acetaminophen Alcohol, Quantitative Assessment & Plan - Assessment and Plan (Free Text) Assessment: Respiratory Depression Assessment and Plan: Lethargy on admission ABG ordered consistent with anion gap metabolic acidosis Patient intubated on mechanical ventilation F/U CXR Continue to monitor F/U AM labs Status: Acute Suicide attempt by drug ingestion Assessment and Plan: Admit to ICU for critical care monitoring Psychiatry Consult (Dr. Montenegro)- F/U recommendations Toxicology: * Acetaminophen: 68 * Alcohol level: 89 F/U UDS Patient administered Zofran 4mg IV, Narcan 4mg IV, Acetylcysteine Continue IV fluids Patient will benefit from counseling services EKG- Sinus Tach Head CT- negative for intracranial bleed Status: Acute History of Drug overdose Assessment and Plan: Management per Psych Patient will benefit from counseling services Status: Chronic History of alcohol and illicit drug use Assessment and Plan: IV fluids Follow up CMPs to monitor renal and liver functionality Patient will benefit from counseling services Management per Psych Status: Chronic Prophylactic measure Assessment and Plan: SCDs PPI 40 mg IV daily Seizure precautions, Fall risk precautions Status: Acute <Avelino Krishnan - Last Filed: 01/24/17 05:43> Results - Vital Signs Recent Vital Signs: Last Vital Signs Temp 98.5 F 01/24/17 01:13 Pulse 86 01/24/17 04:40 Resp 14 01/24/17 04:40 BP 86/47 L 01/24/17 04:34 Pulse Ox 100 01/24/17 04:40 - Labs Result Diagrams: 01/24/17 01:20 01/24/17 01:20 Labs: Laboratory Results - last 24 hr 01/24/17 03:41 Urine Opiates Screen Positive Urine Methadone Screen Negative Ur Barbiturates Screen Positive Ur Phencyclidine Scrn Negative Ur Amphetamines Screen Negative U Benzodiazepines Scrn Negative U Oth Cocaine Metabols Negative U Cannabinoids Screen Negative Assessment & Plan - Date & Time Date: 01/24/17 (I have seen and examined the patient. I agree with the findings and plan of care as documented by Dr. Hunt. Patient with respiratory failure secondary to intentional drug overdose. Intubated in ED. Admit to ICU for further management. Consult to psych. Monitor for acute changes.) Time: 05:42 Attending/Attestation - Attestation I have personally seen and examined this patient.: Yes I have fully participated in the care of the patient.: Yes I have reviewed all pertinent clinical information: Yes
[2017-01-24] MEDS ORDERED: WATER IVPB STA ×3 (02:23→02:37)
[2017-01-24] MEDS ORDERED: ACETYLCYSTEINE IVPB STA ×3 (02:23→02:37)
[2017-01-24] MEDS ORDERED: DEXTROSE 5% IVPB STA ×3 (02:23→02:37)
--- NOTE | 2017-01-24 02:57 | CT ---
EXAM: CT Head Without Intravenous Contrast CLINICAL HISTORY: 36 years old, female; Pain; Headache and other: Overdose; Patient HX: 7; Additional info: R/O bleed TECHNIQUE: Axial computed tomography images of the head/brain without intravenous contrast. This CT exam was performed using one or more of the following dose reduction techniques: automated exposure control, adjustment of the mA and/or kV according to patient size, and/or use of iterative reconstruction technique. EXAM DATE/TIME: 01/24/2017 1:36 AM COMPARISON: No relevant prior studies available. FINDINGS: No intracranial hemorrhage. No intracranial edema. Punctate hypodensities in the anterior internal capsules bilaterally, possible tiny old lacunar infarcts. No evidence of acute infarct. The sinuses and mastoid air cells are clear. IMPRESSION: No acute findings.
[2017-01-24] MEDS: Sodium Chloride 0.9% 1,000 ML IV SCH ×2 (03:15→10:36)
--- NOTE | 2017-01-24 03:18 | CP.PCM.CON ---
History of Present Illness - History of Present Illness History of Present Illness: Patient with known history of bipolar, multiple suicide attempt in the past. Depression. Recently hospitalized with a multidrug overdose. Patient today was brought in by the family member has been, after she was found taking at least 30 tablets of Fiorinal, and also trazodone multiple doses. Patient took the medications around 1:00. Upon arrival patient was extremely lethargic, she responded to Narcan briefly. But she become more lethargic, and unable to arouse even with the deep stimuli. Significant the labored respiration noted. Blood gas analysis showing evidence of mild acidosis. Given the timeframe, and her condition can get worse after medications gets more absorbed, suggested to intubate. Patient got intubated without any sedation. Place on ventilator. Patient will be transferred to intensive care unit Past medical history: Drug overdose bipolar multiple suicidal attempts in the past. Allergies multiple drug allergy identified Family history significant for depression. Review of system: Unable to identify now patient is on vent Vital signs reviewed No neck vein distention noted, pupils constricted min Chest good air entry bilaterally, no wheezing or rales noted CVS regular heart sound, no murmur noted Abdomen soft, nontender. Extremities no pedal edema ACIDITY TESTER patient is extremely drowsy very hard to arouse even with the deep stimuli Labs reviewed Acidosis noted, on and. ALSO patient has anion gap and a alcohol is noted in the blood. Assessment and recommendation: Multidrug overdose, with respiratory depression. Intubated. Continue the current condition. IV fluid close monitoring papillate monitoring. Patient is currently on Acetadote intravenous for Tylenol overdose. Close monitoring renal liver function monitoring ICU protocol. Past Patient History - Past Medical History & Family History Past Medical History?: Yes - Past Social History Smoking Status: Light Smoker < 10 Cigarettes Daily - CARDIAC Hx Hypertension: Yes - PULMONARY Hx Respiratory Disorders: No - NEUROLOGICAL Hx Migraine: Yes - HEENT Hx HEENT Problems: No - RENAL Hx Chronic Kidney Disease: No - ENDOCRINE/METABOLIC Hx Endocrine Disorders: No - HEMATOLOGICAL/ONCOLOGICAL Hx Blood Disorders: No - INTEGUMENTARY Hx Dermatological Problems: No - MUSCULOSKELETAL/RHEUMATOLOGICAL Hx Musculoskeletal Disorders: No - GASTROINTESTINAL Hx Gastrointestinal Disorders: No - GENITOURINARY/GYNECOLOGICAL Hx Genitourinary Disorders: No - PSYCHIATRIC Hx Bipolar Disorder: Yes (has been off meds xyears) Hx Substance Use: No - SURGICAL HISTORY Hx Surgeries: No - ANESTHESIA Hx Anesthesia: No Meds Allergies/Adverse Reactions: Allergies Allergy/AdvReac Type Severity Reaction Status Date / Time cephalexin [From Keflex] Allergy Verified 12/21/16 00:31 clindamycin Allergy Verified 12/21/16 00:31 Penicillins Allergy Verified 12/21/16 00:31 Sulfa (Sulfonamide Allergy Verified 12/21/16 00:31 Antibiotics) - Medications Medications: Current Medications Acetylcysteine 13,500 mg/ (Dextrose) 267.5 mls @ 200 mls/hr IVPB STAT STA Stop: 01/24/17 03:22 Acetylcysteine 4,500 mg/ (Dextrose) 500 mls @ 125 mls/hr IVPB STAT STA Stop: 01/24/17 06:34 Acetylcysteine 9,000 mg/ (Dextrose) 1,000 mls @ 62.5 mls/hr IVPB STAT STA Stop: 01/24/17 18:36 Sodium Chloride (Sodium Chloride 0.9%) 1,000 mls @ 175 mls/hr IV .Q5H43M [facility] Lorazepam (Ativan) 2 mg IVP Q6H PRN PRN Reason: Anxiety Pantoprazole Sodium (Protonix Inj) 40 mg IVP DAILY [facility] Results - Vital Signs Recent Vital Signs: Last Vital Signs Temp 98.5 F 01/24/17 01:13 Pulse 97 H 01/24/17 01:13 Resp 20 01/24/17 01:13 BP 104/67 01/24/17 01:13 Pulse Ox 85 L 01/24/17 03:00 - Labs Result Diagrams: 01/24/17 01:20 01/24/17 01:20
[2017-01-24 06:19] LABS: ABG ALLEN TEST POS; ABG MECHANICAL RATE 20; ARTERIAL BLOOD GAS MODE PRVC; ARTERIAL BLOOD HGB O2 SAT 98.1 % (95.0-98.0); ATERIAL BLOOD GAS PEEP 5; DRAW SITE RR; HHB 0.3 % (0.0-5.0); METHEMOGLOBIN 0.6 % (0.0-3.0)
[2017-01-24 06:22] LABS: BASO % 0.4 % (0.0-2.0); EOS # 0.1 K/uL (0.0-0.7); EOS % 1.1 % (0.0-4.0); HEMATOCRIT 34.3 % (34.0-47.0); LYMPH # 1.3 K/uL (1.0-4.3); LYMPH % 13.3 % (20.0-40.0); MEAN CELL VOLUME 92.5 fL (81.0-99.0); MEAN CORPUSCULAR HEMOGLOBIN 30.9 pg (27.0-31.0); MEAN CORPUSCULAR HGB CONC 33.4 g/dL (33.0-37.0); MEAN PLATELET VOLUME 8.6 fL (7.2-11.7); MONO # 0.3 K/uL (0.0-0.8); MONO % 3.1 % (0.0-10.0)
[2017-01-24 06:55] LABS: ALB/GLOB RATIO 1.2 (1.0-2.1); ALT/SGPT 17 U/L (9-52); AST/SGOT 12 U/L (14-36); BILIRUBIN,TOTAL 0.1 mg/dL (0.2-1.3); BLOOD UREA NITROGEN 11 mg/dL (7-17); CALCIUM 6.5 mg/dl (8.6-10.4); CARBON DIOXIDE 14 mmol/L (22-30); CHLORIDE 116 mmol/L (98-107); GFR AFRICAN-AMERICAN > 60; GLUCOSE,RANDOM 94 mg/dL (65-105); MAGNESIUM 1.6 mg/dL (1.6-2.3); PHOSPHOROUS 2.5 mg/dL (2.5-4.5); POTASSIUM 3.8 mmol/L (3.6-5.2); SODIUM 140 mmol/L (132-148); TOTAL PROTEIN 4.4 g/dL (6.3-8.3)
[2017-01-24 07:08] LABS: ALKALINE PHOSPHATASE < 20 U/L (38-126)
--- NOTE | 2017-01-24 08:07 | RAD ---
HISTORY: pneumonia COMPARISON: 12/30/2016 FINDINGS: LUNGS: Shallow lung volumes. Minimal patchy and linear opacities left lung base -atelectatic changes enter trace infiltrates here. The right hilar soft tissue are now more prominent -given short interval time frame possibly due to technique. Superimposed right perihilar pathology not excluded. PLEURA: No significant pleural effusion identified, no pneumothorax apparent. CARDIOVASCULAR: Normal heart size. Interval prominence right hilar soft tissues -indeterminate OSSEOUS STRUCTURES: No significant abnormalities. VISUALIZED UPPER ABDOMEN: Normal. OTHER FINDINGS: Interval endotracheal tube insertion - tip 4-5 cm from pranay IMPRESSION: Left lung base patchy and linear opacities ; similar -atelectatic changes with minimal infiltrate here possible. Interval prominence- right hilum -superimposed focal infiltrate 1 consideration given the short interval time frame. Due to technical factors -another consideration. If needed consider CT chest. Interval endotracheal tube insertion tip at upper clavicle border.
[2017-01-24] MEDS ORDERED: DEXTROSE 5% IVPB ONE (09:15)
[2017-01-24] MEDS ORDERED: ACETYLCYSTEINE IVPB ONE (09:15)
[2017-01-24] MEDS ORDERED: WATER IVPB ONE (09:15)
--- NOTE | 2017-01-24 09:32 | CP.PCM.PN ---
Subjective - Date & Time of Evaluation Date of Evaluation: 01/24/17 Time of Evaluation: 09:00 - Subjective Subjective: Patient is currently intubated at this time on PRVC settings. Not on any sedation at this time. Per review of recent notes she was here in December under very similar circumstances. She will be receiving additional acetylcestine throughout the day. When she came into the ER early this morning was already mildy acidotic, currently the LFTs are stable. We are currently pending psychiatry evaluation. Objective - Vital Signs/Intake and Output Vital Signs (last 24 hours): Temp Pulse Resp BP Pulse Ox 98.4 F 81 19 89/47 L 100 01/24/17 06:00 01/24/17 07:30 01/24/17 07:30 01/24/17 07:11 01/24/17 07:30 Intake and Output: 01/24/17 01/24/17 06:59 18:59 Intake Total 4125 375 Output Total 1550 350 Balance 2575 25 - Medications Medications: Current Medications Famotidine (Pepcid) 20 mg IVP DAILY [facility] Sodium Chloride (Sodium Chloride 0.9%) 1,000 mls @ 175 mls/hr IV .Q5H43M [facility] Last Admin: 01/24/17 03:15 Dose: 175 mls/hr Acetylcysteine 9,000 mg/ (Dextrose) 1,000 mls @ 62.5 mls/hr IVPB ONCE ONE Stop: 01/25/17 01:14 Lorazepam (Ativan) 2 mg IVP Q6H PRN PRN Reason: Anxiety Last Admin: 01/24/17 02:45 Dose: 2 mg - Labs Labs: 01/24/17 06:10 01/24/17 06:10 - Head Exam Additional comments: Intubated - ENT Exam ENT Exam: Mucous Membranes Moist - Respiratory Exam Respiratory Exam: Clear to Ausculation Bilateral, NORMAL BREATHING PATTERN - Cardiovascular Exam Cardiovascular Exam: REGULAR RHYTHM - GI/Abdominal Exam GI & Abdominal Exam: Soft, Normal Bowel Sounds - Neurological Exam Neurological Exam: Altered - Skin Skin Exam: Normal Color, Warm Assessment and Plan - Assessment and Plan (Free Text) Assessment: Respiratory Depression Assessment and Plan: 01/24: Patient was lethergic on admission. Currently intubated. The UDS and labwork shows + barbituates, opiates, alcohol as well as tylenol elevations. She had earlier ABGs with anion gap metabolic acidosis Suicide attempt by drug ingestion Assessment and Plan: 01/24: She was recently here with similar episode. UDS showing opiates, barbituates. Also elevated alcohol and tylenol levels. Psychiatry Consult (Dr. Montenegro)- F/U recommendations Toxicology: * Acetaminophen: 68 * Alcohol level: 89 Patient administered Zofran 4mg IV, Narcan 4mg IV, Acetylcysteine Continue IV fluids Patient will benefit from counseling services EKG- Sinus Tach Head CT- negative for intracranial bleed History of Drug overdose Assessment and Plan: Management per Psych Patient will benefit from counseling services Tylenol overdose and metabolic acidosis. Assessment and Plan: 01/24 Continue with IVF, she has already received acetylcystien and from what I understand this will be continued throughout the day Monitor renal and liver functionality Patient will benefit from counseling services Management per Psych Prophylactic measure Assessment and Plan: SCDs PPI 40 mg IV daily Seizure precautions, Fall risk precautions
[2017-01-24] MEDS: Enoxaparin 40 mg Syringe SC SCH (11:46)
--- NOTE | 2017-01-24 13:00 | CP.PCM.PCO ---
Physician Communication Note - Physician Communication Note Physician Communication Note: Pt is seen for consult but she is intubated and sedated. Will return
[2017-01-25 01:09] LABS: INR 1.1
[2017-01-25 01:26] LABS: BILIRUBIN,DIRECT 0.3 mg/dL (0.0-0.4); BILIRUBIN,TOTAL 0.3 mg/dL (0.2-1.3); TOTAL PROTEIN 4.4 g/dL (6.3-8.3)
[2017-01-25 05:47] LABS: ABG ALLEN TEST POS; ABG MECHANICAL RATE 20; ARTERIAL BLOOD GAS MODE PRVC; ARTERIAL BLOOD HGB O2 SAT 97.4 % (95.0-98.0); ATERIAL BLOOD GAS PEEP 5; CARBOXYHEMOGLOBIN 0.9 % (0.5-1.5); DRAW SITE RR; HHB 0.9 % (0.0-5.0); METHEMOGLOBIN 0.8 % (0.0-3.0)
[2017-01-25 06:57] LABS: BASO % 0.3 % (0.0-2.0); EOS # 0.4 K/uL (0.0-0.7); EOS % 5.7 % (0.0-4.0); HEMATOCRIT 32.7 % (34.0-47.0); LYMPH # 1.8 K/uL (1.0-4.3); LYMPH % 23.6 % (20.0-40.0); MEAN CELL VOLUME 92.2 fL (81.0-99.0); MEAN CORPUSCULAR HEMOGLOBIN 30.9 pg (27.0-31.0); MEAN CORPUSCULAR HGB CONC 33.5 g/dL (33.0-37.0); MEAN PLATELET VOLUME 8.4 fL (7.2-11.7); MONO # 0.4 K/uL (0.0-0.8); MONO % 5.1 % (0.0-10.0); RED CELL DISTRIBUTION WIDTH 14.4 % (11.5-14.5); WHITE BLOOD COUNT 7.4 K/uL (4.8-10.8)
[2017-01-25 07:11] LABS: ALKALINE PHOSPHATASE 37 U/L (38-126); ALT/SGPT 23 U/L (9-52); AST/SGOT 11 U/L (14-36); BILIRUBIN,TOTAL 0.1 mg/dL (0.2-1.3); BLOOD UREA NITROGEN 7 mg/dL (7-17); CALCIUM 7.5 mg/dl (8.6-10.4); CARBON DIOXIDE 20 mmol/L (22-30); CHLORIDE 111 mmol/L (98-107); GFR AFRICAN-AMERICAN > 60; GLUCOSE,RANDOM 76 mg/dL (65-105); MAGNESIUM 1.9 mg/dL (1.6-2.3); PHOSPHOROUS 2.4 mg/dL (2.5-4.5); POTASSIUM 2.9 mmol/L (3.6-5.2); SODIUM 138 mmol/L (132-148); TOTAL PROTEIN 4.5 g/dL (6.3-8.3)
[2017-01-25 07:14] LABS: ALB/GLOB RATIO 1.1 (1.0-2.1)
--- NOTE | 2017-01-25 07:49 | CP.PCM.PN ---
Subjective - Date & Time of Evaluation Date of Evaluation: 01/25/17 Time of Evaluation: 07:30 - Subjective Subjective: Patient was seen and examined by me. She remains intubated at this time, [facility] She is now awake, she was able to nod her head to yes and no. She seemed to indicate she was not having any pain. Per staff there were no acute events overnight. The acetlycystein finnished at 2 AM. Currently the LFTs and INR this morning were stable. There was also an ABG this morning and the pH and bicarb were improved from admission. Objective - Vital Signs/Intake and Output Vital Signs (last 24 hours): Temp Pulse Resp BP Pulse Ox 98 F 92 H 20 112/53 L 100 01/24/17 16:00 01/25/17 06:00 01/25/17 06:00 01/25/17 05:51 01/25/17 06:00 Intake and Output: 01/25/17 01/25/17 06:59 18:59 Intake Total 2790.0 Output Total 760 Balance 2030.0 - Medications Medications: Current Medications Enoxaparin Sodium (Lovenox) 40 mg SC DAILY [facility] Last Admin: 01/24/17 11:46 Dose: 40 mg Famotidine (Pepcid) 20 mg IVP DAILY [facility] Last Admin: 01/24/17 10:41 Dose: 20 mg Sodium Bicarbonate 75 meq/ (Sodium Chloride) 1,075 mls @ 150 mls/hr IV .Q7H10M [facility] Last Admin: 01/25/17 04:00 Dose: 150 mls/hr Lorazepam (Ativan) 2 mg IVP Q6H PRN PRN Reason: Anxiety Last Admin: 01/24/17 02:45 Dose: 2 mg - Labs Labs: 01/25/17 06:51 01/25/17 06:51 PT 12.2 SECONDS (9.7-12.2) 01/25/17 00:57 INR 1.1 01/25/17 00:57 APTT 28 SECONDS (21-34) 01/25/17 00:57 - Constitutional Appears: Unkempt, Chronically Ill - Head Exam Additional comments: Intubated, ET and OT tube - ENT Exam ENT Exam: Mucous Membranes Moist - Respiratory Exam Respiratory Exam: Clear to Ausculation Bilateral, NORMAL BREATHING PATTERN - Cardiovascular Exam Cardiovascular Exam: REGULAR RHYTHM - Neurological Exam Neurological Exam: Alert, Awake Neuro motor strength exam: Left Upper Extremity: 4, Right Upper Extremity: 4 - Psychiatric Exam Psychiatric exam: Depressed, Flat Affect - Skin Skin Exam: Pallor, Warm Assessment and Plan - Assessment and Plan (Free Text) Assessment: Respiratory Depression Assessment and Plan: 01/25: Today awake and able to respond to commands. Currently intubated at the moment. The ABG looks better today. 01/24: Patient was lethergic on admission. Currently intubated. The UDS and labwork shows + barbituates, opiates, alcohol as well as tylenol elevations. She had earlier ABGs with anion gap metabolic acidosis Suicide attempt by drug ingestion Assessment and Plan: 01/25: Hopefully when extubated can be evaluated by psychiatry 01/24: She was recently here with similar episode. UDS showing opiates, barbituates. Also elevated alcohol and tylenol levels. Psychiatry Consult (Dr. Montenegro)- F/U recommendations Toxicology: * Acetaminophen: 68 * Alcohol level: 89 Patient administered Zofran 4mg IV, Narcan 4mg IV, Acetylcysteine Continue IV fluids Patient will benefit from counseling services EKG- Sinus Tach Head CT- negative for intracranial bleed History of Drug overdose Assessment and Plan: Management per Psych Patient will benefit from counseling services Tylenol overdose and metabolic acidosis. Assessment and Plan: 01/25: LFTs and INRs are stable. The acetylcystein was done earlier in the morning. 01/24 Continue with IVF, she has already received acetylcystien and from what I understand this will be continued throughout the day Monitor renal and liver functionality Patient will benefit from counseling services Management per Psych Prophylactic measure Assessment and Plan: SCDs PPI 40 mg IV daily Seizure precautions, Fall risk precautions
--- NOTE | 2017-01-25 08:06 | RAD ---
HISTORY: intubated COMPARISON: Chest radiograph 01/24/2017 FINDINGS: LUNGS: No interval infiltrate. Stable endotracheal tube placement with nasogastric tube again identified terminating at the left upper quadrant abdomen. PLEURA: No significant pleural effusion identified, no pneumothorax apparent. CARDIOVASCULAR: Normal. OSSEOUS STRUCTURES: No significant abnormalities. VISUALIZED UPPER ABDOMEN: Normal. OTHER FINDINGS: Mildly elevated right hemidiaphragm identified. IMPRESSION: No acute infiltrate or pleural effusion. Mild elevation of the right hemidiaphragm noted in the interval. Stop
[2017-01-25] MEDS ORDERED: Potassium Chloride 20 mEq/15 ml LIQ UD PO ONE ×2 (08:46→09:28)
[2017-01-25] MEDS: Enoxaparin 40 mg Syringe SC SCH (09:43)
--- NOTE | 2017-01-25 11:53 | CP.CCUPN ---
<Sylwia Cervantes - Last Filed: 01/25/17 12:15> CCU Subjective - Physician Review Subjective (Free Text): Patient was seen and examined at bedside in the morning. Patient was alert and responded to questions by nodding her head yes and no. Patient denies having chest pain, abdominal pain, nausea, vomiting, fever, diarrhea, and leg pain. 01/25/17 11:53 CCU Objective - Vital Signs / Intake & Output Intake and Output (Last 8hrs): Intake & Output 01/24/17 01/25/17 01/25/17 22:59 06:59 14:59 Intake Total 1820.0 1860.0 Output Total 540 500 Balance 1280.0 1360.0 Intake: Intake, IV Amount 1700.0 1700.0 Left Antecubital 1200 1200 Left Antecubital Y Port 500.0 500.0 Tube Feeding 120 160 Output: Urine 540 500 Urethral (Haddad) 540 500 Other: # Bowel Movements 0 0 - Physical Exam Head: Negative for: Atraumatic, Normocephalic Extroacular Muscles: Negative for: EOMI Mouth: Negative for: Moist Mucous Membranes Respiratory/Chest: Negative for: Clear to Auscultation, Wheezes, Rales, Rhonchi Cardiovascular: Positive for: Regular Rate and Rhythm, Normal S1, S2. Negative for: Murmurs Abdomen: Positive for: Normal Bowel Sounds. Negative for: Tenderness, Distention Upper Extremity: Negative for: Normal Inspection, Edema Lower Extremity: Negative for: Normal Inspection, Edema Skin: Negative for: Warm, Dry, Normal Color Psychiatric: Negative for: Alert, Oriented x 3 - Medications Active Medications: Active Medications Generic Name Dose Route Start Last Admin Trade Name Freq PRN Reason Stop Dose Admin Enoxaparin Sodium 40 mg 01/24/17 11:30 01/25/17 09:43 Lovenox SC 40 mg DAILY YUNIEL Administration Famotidine 20 mg 01/24/17 10:00 01/25/17 09:43 Pepcid IVP 20 mg DAILY YUNIEL Administration Sodium Bicarbonate 75 meq/ 1,075 mls @ 150 mls/hr 01/24/17 12:15 01/25/17 04: 00 Sodium Chloride IV 150 mls/hr .[id number] YUNIEL Administration Lorazepam 2 mg 01/24/17 03:12 01/24/17 02:45 Ativan IVP 2 mg Q6H PRN Administration Anxiety - Patient Studies Lab Studies: Microbiology Studies 01/24/17 03:48 MRSA Culture (Admit) - Final Nose MRSA NOT DETECTED Lab Studies 01/25/17 01/25/17 01/25/17 Range/Units 06:51 06:51 05:25 WBC 7.4 (4.8-10.8) K/uL RBC 3.54 L (3.80-5.20) Mil/uL Hgb 11.0 (11.0-16.0) g/dL Hct 32.7 L (34.0-47.0) % MCV 92.2 (81.0-99.0) fL MCH 30.9 (27.0-31.0) pg MCHC 33.5 (33.0-37.0) g/dL RDW 14.4 (11.5-14.5) % Plt Count 153 (130-400) K/uL MPV 8.4 (7.2-11.7) fL Neut % (Auto) 65.3 (50.0-75.0) % Lymph % (Auto) 23.6 (20.0-40.0) % [place] % (Auto) 5.1 (0.0-10.0) % Eos % (Auto) 5.7 H (0.0-4.0) % Baso % (Auto) 0.3 (0.0-2.0) % Neut # 4.9 (1.8-7.0) K/uL Lymph # 1.8 (1.0-4.3) K/uL [place] # 0.4 (0.0-0.8) K/uL Eos # 0.4 (0.0-0.7) K/uL Baso # 0.0 (0.0-0.2) K/uL PT (9.7-12.2) SECONDS INR APTT (21-34) SECONDS Puncture Site Rr pCO2 30 L (35-45) mm/Hg pO2 159 H (80-100) mm/Hg HCO3 22.1 (21-28) mmol/L ABG pH 7.43 (7.35-7.45) ABG Total CO2 20.8 L (22-28) mmol/L ABG O2 Saturation 99.1 H (95-98) % ABG Base Excess -3.7 L (-2.0-3.0) mmol/L ABG Hemoglobin 9.8 L (11.7-17.4) g/dL ABG Carboxyhemoglobin 0.9 (0.5-1.5) % POC ABG HHb (Measured) 0.9 (0.0-5.0) % ABG Methemoglobin 0.8 (0.0-3.0) % Karsten Test Pos A-a O2 Difference 89.0 mm/Hg Respiratory Index 0.6 Hgb O2 Saturation 97.4 (95.0-98.0) % Vent Mode Prvc Mechanical Rate 20 FiO2 40.0 % Tidal Volume 500 PEEP 5 Sodium 138 (132-148) mmol/L Potassium 2.9 L (3.6-5.2) mmol/L Chloride 111 H (98-107) mmol/L Carbon Dioxide 20 L (22-30) mmol/L Anion Gap 10 (10-20) BUN 7 (7-17) mg/dL Creatinine 0.6 L (0.7-1.2) MG/DL Est GFR ( Amer) > 60 Est GFR (Non-Af Amer) > 60 Random Glucose 76 (65-105) mg/dL Calcium 7.5 L (8.6-10.4) mg/dl Phosphorus 2.4 L (2.5-4.5) mg/dL Magnesium 1.9 (1.6-2.3) mg/dL Total Bilirubin 0.1 L (0.2-1.3) mg/dL Direct Bilirubin (0.0-0.4) mg/dL AST 11 L D (14-36) U/L ALT 23 (9-52) U/L Alkaline Phosphatase 37 L (38-126) U/L Total Protein 4.5 L (6.3-8.3) g/dL Albumin 2.4 L (3.5-5.0) g/dL Globulin 2.1 L (2.2-3.9) gm/dL Albumin/Globulin Ratio 1.1 (1.0-2.1) Acetaminophen (10.0-30.0) ug/mL 01/25/17 01/25/17 01/25/17 Range/Units 00:57 00:57 00:57 WBC (4.8-10.8) K/uL RBC (3.80-5.20) Mil/uL Hgb (11.0-16.0) g/dL Hct (34.0-47.0) % MCV (81.0-99.0) fL MCH (27.0-31.0) pg MCHC (33.0-37.0) g/dL RDW (11.5-14.5) % Plt Count (130-400) K/uL MPV (7.2-11.7) fL Neut % (Auto) (50.0-75.0) % Lymph % (Auto) (20.0-40.0) % [place] % (Auto) (0.0-10.0) % Eos % (Auto) (0.0-4.0) % Baso % (Auto) (0.0-2.0) % Neut # (1.8-7.0) K/uL Lymph # (1.0-4.3) K/uL [place] # (0.0-0.8) K/uL Eos # (0.0-0.7) K/uL Baso # (0.0-0.2) K/uL PT 12.2 (9.7-12.2) SECONDS INR 1.1 APTT 28 (21-34) SECONDS Puncture Site pCO2 (35-45) mm/Hg pO2 (80-100) mm/Hg HCO3 (21-28) mmol/L ABG pH (7.35-7.45) ABG Total CO2 (22-28) mmol/L ABG O2 Saturation (95-98) % ABG Base Excess (-2.0-3.0) mmol/L ABG Hemoglobin (11.7-17.4) g/dL ABG Carboxyhemoglobin (0.5-1.5) % POC ABG HHb (Measured) (0.0-5.0) % ABG Methemoglobin (0.0-3.0) % Karsten Test A-a O2 Difference mm/Hg Respiratory Index Hgb O2 Saturation (95.0-98.0) % Vent Mode Mechanical Rate FiO2 % Tidal Volume PEEP Sodium (132-148) mmol/L Potassium (3.6-5.2) mmol/L Chloride (98-107) mmol/L Carbon Dioxide (22-30) mmol/L Anion Gap (10-20) BUN (7-17) mg/dL Creatinine (0.7-1.2) MG/DL Est GFR ( Amer) Est GFR (Non-Af Amer) Random Glucose (65-105) mg/dL Calcium (8.6-10.4) mg/dl Phosphorus (2.5-4.5) mg/dL Magnesium (1.6-2.3) mg/dL Total Bilirubin 0.3 (0.2-1.3) mg/dL Direct Bilirubin 0.3 (0.0-0.4) mg/dL AST 15 (14-36) U/L ALT 19 (9-52) U/L Alkaline Phosphatase 36 L D (38-126) U/L Total Protein 4.4 L (6.3-8.3) g/dL Albumin 2.2 L (3.5-5.0) g/dL Globulin 2.2 (2.2-3.9) gm/dL Albumin/Globulin Ratio 1.0 (1.0-2.1) Acetaminophen < 10.0 L (10.0-30.0) ug/mL Laboratory Results - last 24 hr 01/25/17 01/25/17 01/25/17 00:57 00:57 00:57 WBC RBC Hgb Hct MCV MCH MCHC RDW Plt Count MPV Neut % (Auto) Lymph % (Auto) [place] % (Auto) Eos % (Auto) Baso % (Auto) Neut # Lymph # [place] # Eos # Baso # PT 12.2 INR 1.1 APTT 28 Puncture Site pCO2 pO2 HCO3 ABG pH ABG Total CO2 ABG O2 Saturation ABG Base Excess ABG Hemoglobin ABG Carboxyhemoglobin POC ABG HHb (Measured) ABG Methemoglobin Kar[place] Test A-a O2 Difference Respiratory Index Hgb O2 Saturation Vent Mode Mechanical Rate FiO2 Tidal Volume PEEP Sodium Potassium Chloride Carbon Dioxide Anion Gap BUN Creatinine Est GFR ( Amer) Est GFR (Non-Af Amer) Random Glucose Calcium Phosphorus Magnesium Total Bilirubin 0.3 Direct Bilirubin 0.3 AST 15 ALT 19 Alkaline Phosphatase 36 L D Total Protein 4.4 L Albumin 2.2 L Globulin 2.2 Albumin/Globulin Ratio 1.0 Acetaminophen < 10.0 L 01/25/17 01/25/17 01/25/17 05:25 06:51 06:51 WBC 7.4 RBC 3.54 L Hgb 11.0 Hct 32.7 L MCV 92.2 MCH 30.9 MCHC 33.5 RDW 14.4 Plt Count 153 MPV 8.4 Neut % (Auto) 65.3 Lymph % (Auto) 23.6 [place] % (Auto) 5.1 Eos % (Auto) 5.7 H Baso % (Auto) 0.3 Neut # 4.9 Lymph # 1.8 [place] # 0.4 Eos # 0.4 Baso # 0.0 PT INR APTT Puncture Site Rr pCO2 30 L pO2 159 H HCO3 22.1 ABG pH 7.43 ABG Total CO2 20.8 L ABG O2 Saturation 99.1 H ABG Base Excess -3.7 L ABG Hemoglobin 9.8 L ABG Carboxyhemoglobin 0.9 POC ABG HHb (Measured) 0.9 ABG Methemoglobin 0.8 Karsten Test Pos A-a O2 Difference 89.0 Respiratory Index 0.6 Hgb O2 Saturation 97.4 Vent Mode Prvc Mechanical Rate 20 FiO2 40.0 Tidal Volume 500 PEEP 5 Sodium 138 Potassium 2.9 L Chloride 111 H Carbon Dioxide 20 L Anion Gap 10 BUN 7 Creatinine 0.6 L Est GFR ( Amer) > 60 Est GFR (Non-Af Amer) > 60 Random Glucose 76 Calcium 7.5 L Phosphorus 2.4 L Magnesium 1.9 Total Bilirubin 0.1 L Direct Bilirubin AST 11 L D ALT 23 Alkaline Phosphatase 37 L Total Protein 4.5 L Albumin 2.4 L Globulin 2.1 L Albumin/Globulin Ratio 1.1 Acetaminophen Fingerstick Blood Sugar Results: 135 Review of Systems - Cardiovascular Cardiovascular: absent: Chest Pain, Dyspnea - Gastrointestinal Gastrointestinal: absent: Abdominal Pain, Constipation, Diarrhea, Nausea, Vomiting - Genitourinary Genitourinary: absent: Dysuria - Neurological Neurological: absent: Dizziness, Headaches Assessment/Plan - Assessment and Plan (Free Text) Assessment: 36 year old female patient with past medical history of HTN, bipolar disorder, migraines, and prior suicide attempts, arrives at the hospital after attempting suicide by overdosing at home. Patient took acetaminophen with codeine, topamax , and alcohol. Patient was given narcan and acetylcysteine. Patient was treated with the 20hr IV protocol, finished acetylcysteine at approximately 1am today. Patient is awake, alert, and answering questions by nodding. Patient was weaned off and extubated today, 01/25/17. Neuro: alert, oriented x3 Pulm: - Extubated, on nasal cannula 3L - ABG improving--> IV Fluids: Sodium bicarb drip @150mls/hr - ABG: f/u repeat CV: - Hx of HTN, monitor BP - IV Fluids: Sodium bicarb drip @150mls/hr Endo: no acute issues GI: - Monitor Liver Enzymes - Acetominiphen 68 at admission--> improved, <10 today - Alcohol 89 at admission - Acetylcysteine- last dose given 01/25/17; stopped at 1am Heme: no acute issues Renal: - Hypokalemic: gave 60meq of KCl MSK: no acute issues Psych: - Psych consulted: Dr. Renteria, help appreciated - hx of suicide attempts - hx of bipolar disorder Prophylaxis: - DVT: Lovenox - GI: Pepcid <Liu Smith - Last Filed: 01/25/17 17:56> CCU Objective - Vital Signs / Intake & Output Vital Signs (Last 4 hours): Vital Signs Temp Pulse Resp BP Pulse Ox 01/25/17 17:00 102 H 14 99 01/25/17 16:51 103 H 12 129/73 100 01/25/17 16:00 103 H 15 99 01/25/17 15:51 104 H 13 127/78 100 01/25/17 15:00 109 H 15 99 01/25/17 14:51 106 H 14 128/73 100 01/25/17 14:00 99.0 F 107 H 16 100 Intake and Output (Last 8hrs): Intake & Output 01/25/17 01/25/17 01/25/17 06:59 14:59 22:59 Intake Total 1860.0 1200 0 Output Total 500 860 210 Balance 1360.0 340 -210 Weight 212 lb Intake: Intake, IV Amount 1700.0 1200 0 Left Antecubital 1200 1200 0 Left Antecubital Y Port 500.0 Tube Feeding 160 Output: Urine 500 860 210 Urethral (Haddad) 500 860 210 Stool 0 Emesis 0 Other: # Bowel Movements 0 - Medications Active Medications: Active Medications Generic Name Dose Route Start Last Admin Trade Name Freq PRN Reason Stop Dose Admin Enoxaparin Sodium 40 mg 01/24/17 11:30 01/25/17 09:43 Lovenox SC 40 mg DAILY YUNIEL Administration Escitalopram Oxalate 10 mg 01/26/17 10:00 Lexapro PO DAILY YUNIEL Famotidine 20 mg 01/24/17 10:00 01/25/17 09:43 Pepcid IVP 20 mg DAILY YUNIEL Administration Lorazepam 2 mg 01/24/17 03:12 01/24/17 02:45 Ativan IVP 2 mg Q6H PRN Administration Anxiety Prazosin HCl 1 mg 01/25/17 22:00 Minipress PO HS YUNIEL Trazodone HCl 50 mg 01/25/17 22:00 Desyrel PO HS PRN Insomnia - Patient Studies Lab Studies: Microbiology Studies 01/24/17 03:48 MRSA Culture (Admit) - Final Nose MRSA NOT DETECTED Lab Studies 01/25/17 01/25/17 01/25/17 Range/Units 06:51 06:51 05:25 WBC 7.4 (4.8-10.8) K/uL RBC 3.54 L (3.80-5.20) Mil/uL Hgb 11.0 (11.0-16.0) g/dL Hct 32.7 L (34.0-47.0) % MCV 92.2 (81.0-99.0) fL MCH 30.9 (27.0-31.0) pg MCHC 33.5 (33.0-37.0) g/dL RDW 14.4 (11.5-14.5) % Plt Count 153 (130-400) K/uL MPV 8.4 (7.2-11.7) fL Neut % (Auto) 65.3 (50.0-75.0) % Lymph % (Auto) 23.6 (20.0-40.0) % [place] % (Auto) 5.1 (0.0-10.0) % Eos % (Auto) 5.7 H (0.0-4.0) % Baso % (Auto) 0.3 (0.0-2.0) % Neut # 4.9 (1.8-7.0) K/uL Lymph # 1.8 (1.0-4.3) K/uL [place] # 0.4 (0.0-0.8) K/uL Eos # 0.4 (0.0-0.7) K/uL Baso # 0.0 (0.0-0.2) K/uL PT (9.7-12.2) SECONDS INR APTT (21-34) SECONDS Puncture Site Rr pCO2 30 L (35-45) mm/Hg pO2 159 H (80-100) mm/Hg HCO3 22.1 (21-28) mmol/L ABG pH 7.43 (7.35-7.45) ABG Total CO2 20.8 L (22-28) mmol/L ABG O2 Saturation 99.1 H (95-98) % ABG Base Excess -3.7 L (-2.0-3.0) mmol/L ABG Hemoglobin 9.8 L (11.7-17.4) g/dL ABG Carboxyhemoglobin 0.9 (0.5-1.5) % POC ABG HHb (Measured) 0.9 (0.0-5.0) % ABG Methemoglobin 0.8 (0.0-3.0) % Karsten Test Pos A-a O2 Difference 89.0 mm/Hg Respiratory Index 0.6 Hgb O2 Saturation 97.4 (95.0-98.0) % Vent Mode Prvc Mechanical Rate 20 FiO2 40.0 % Tidal Volume 500 PEEP 5 Sodium 138 (132-148) mmol/L Potassium 2.9 L (3.6-5.2) mmol/L Chloride 111 H (98-107) mmol/L Carbon Dioxide 20 L (22-30) mmol/L Anion Gap 10 (10-20) BUN 7 (7-17) mg/dL Creatinine 0.6 L (0.7-1.2) MG/DL Est GFR ( Amer) > 60 Est GFR (Non-Af Amer) > 60 Random Glucose 76 (65-105) mg/dL Calcium 7.5 L (8.6-10.4) mg/dl Phosphorus 2.4 L (2.5-4.5) mg/dL Magnesium 1.9 (1.6-2.3) mg/dL Total Bilirubin 0.1 L (0.2-1.3) mg/dL Direct Bilirubin (0.0-0.4) mg/dL AST 11 L D (14-36) U/L ALT 23 (9-52) U/L Alkaline Phosphatase 37 L (38-126) U/L Total Protein 4.5 L (6.3-8.3) g/dL Albumin 2.4 L (3.5-5.0) g/dL Globulin 2.1 L (2.2-3.9) gm/dL Albumin/Globulin Ratio 1.1 (1.0-2.1) Acetaminophen (10.0-30.0) ug/mL 01/25/17 01/25/17 01/25/17 Range/Units 00:57 00:57 00:57 WBC (4.8-10.8) K/uL RBC (3.80-5.20) Mil/uL Hgb (11.0-16.0) g/dL Hct (34.0-47.0) % MCV (81.0-99.0) fL MCH (27.0-31.0) pg MCHC (33.0-37.0) g/dL RDW (11.5-14.5) % Plt Count (130-400) K/uL MPV (7.2-11.7) fL Neut % (Auto) (50.0-75.0) % Lymph % (Auto) (20.0-40.0) % [place] % (Auto) (0.0-10.0) % Eos % (Auto) (0.0-4.0) % Baso % (Auto) (0.0-2.0) % Neut # (1.8-7.0) K/uL Lymph # (1.0-4.3) K/uL [place] # (0.0-0.8) K/uL Eos # (0.0-0.7) K/uL Baso # (0.0-0.2) K/uL PT 12.2 (9.7-12.2) SECONDS INR 1.1 APTT 28 (21-34) SECONDS Puncture Site pCO2 (35-45) mm/Hg pO2 (80-100) mm/Hg HCO3 (21-28) mmol/L ABG pH (7.35-7.45) ABG Total CO2 (22-28) mmol/L ABG O2 Saturation (95-98) % ABG Base Excess (-2.0-3.0) mmol/L ABG Hemoglobin (11.7-17.4) g/dL ABG Carboxyhemoglobin (0.5-1.5) % POC ABG HHb (Measured) (0.0-5.0) % ABG Methemoglobin (0.0-3.0) % Karsten Test A-a O2 Difference mm/Hg Respiratory Index Hgb O2 Saturation (95.0-98.0) % Vent Mode Mechanical Rate FiO2 % Tidal Volume PEEP Sodium (132-148) mmol/L Potassium (3.6-5.2) mmol/L Chloride (98-107) mmol/L Carbon Dioxide (22-30) mmol/L Anion Gap (10-20) BUN (7-17) mg/dL Creatinine (0.7-1.2) MG/DL Est GFR ( Amer) Est GFR (Non-Af Amer) Random Glucose (65-105) mg/dL Calcium (8.6-10.4) mg/dl Phosphorus (2.5-4.5) mg/dL Magnesium (1.6-2.3) mg/dL Total Bilirubin 0.3 (0.2-1.3) mg/dL Direct Bilirubin 0.3 (0.0-0.4) mg/dL AST 15 (14-36) U/L ALT 19 (9-52) U/L Alkaline Phosphatase 36 L D (38-126) U/L Total Protein 4.4 L (6.3-8.3) g/dL Albumin 2.2 L (3.5-5.0) g/dL Globulin 2.2 (2.2-3.9) gm/dL Albumin/Globulin Ratio 1.0 (1.0-2.1) Acetaminophen < 10.0 L (10.0-30.0) ug/mL Laboratory Results - last 24 hr 01/25/17 01/25/17 01/25/17 00:57 00:57 00:57 WBC RBC Hgb Hct MCV MCH MCHC RDW Plt Count MPV Neut % (Auto) Lymph % (Auto) [place] % (Auto) Eos % (Auto) Baso % (Auto) Neut # Lymph # [place] # Eos # Baso # PT 12.2 INR 1.1 APTT 28 Puncture Site pCO2 pO2 HCO3 ABG pH ABG Total CO2 ABG O2 Saturation ABG Base Excess ABG Hemoglobin ABG Carboxyhemoglobin POC ABG HHb (Measured) ABG Methemoglobin Kar[place] Test A-a O2 Difference Respiratory Index Hgb O2 Saturation Vent Mode Mechanical Rate FiO2 Tidal Volume PEEP Sodium Potassium Chloride Carbon Dioxide Anion Gap BUN Creatinine Est GFR ( Amer) Est GFR (Non-Af Amer) Random Glucose Calcium Phosphorus Magnesium Total Bilirubin 0.3 Direct Bilirubin 0.3 AST 15 ALT 19 Alkaline Phosphatase 36 L D Total Protein 4.4 L Albumin 2.2 L Globulin 2.2 Albumin/Globulin Ratio 1.0 Acetaminophen < 10.0 L 01/25/17 01/25/17 01/25/17 05:25 06:51 06:51 WBC 7.4 RBC 3.54 L Hgb 11.0 Hct 32.7 L MCV 92.2 MCH 30.9 MCHC 33.5 RDW 14.4 Plt Count 153 MPV 8.4 Neut % (Auto) 65.3 Lymph % (Auto) 23.6 [place] % (Auto) 5.1 Eos % (Auto) 5.7 H Baso % (Auto) 0.3 Neut # 4.9 Lymph # 1.8 [place] # 0.4 Eos # 0.4 Baso # 0.0 PT INR APTT Puncture Site Rr pCO2 30 L pO2 159 H HCO3 22.1 ABG pH 7.43 ABG Total CO2 20.8 L ABG O2 Saturation 99.1 H ABG Base Excess -3.7 L ABG Hemoglobin 9.8 L ABG Carboxyhemoglobin 0.9 POC ABG HHb (Measured) 0.9 ABG Methemoglobin 0.8 Karsten Test Pos A-a O2 Difference 89.0 Respiratory Index 0.6 Hgb O2 Saturation 97.4 Vent Mode Prvc Mechanical Rate 20 FiO2 40.0 Tidal Volume 500 PEEP 5 Sodium 138 Potassium 2.9 L Chloride 111 H Carbon Dioxide 20 L Anion Gap 10 BUN 7 Creatinine 0.6 L Est GFR ( Amer) > 60 Est GFR (Non-Af Amer) > 60 Random Glucose 76 Calcium 7.5 L Phosphorus 2.4 L Magnesium 1.9 Total Bilirubin 0.1 L Direct Bilirubin AST 11 L D ALT 23 Alkaline Phosphatase 37 L Total Protein 4.5 L Albumin 2.4 L Globulin 2.1 L Albumin/Globulin Ratio 1.1 Acetaminophen Critical Care Progress Note - Nutrition Nutrition: Nutrition Category Date Time Status NPO Diet [DIET] Diets 01/25/17 Dinner Active Attending/Attestation - Attestation I have personally seen and examined this patient.: Yes I have fully participated in the care of the patient.: Yes I have reviewed all pertinent clinical information: Yes Notes (Text): 01/25/17 17:54 Patient seen and examined in the intensive care unit. Case discussed with house staff in the morning rounds. Patient extubated after weaning trial Patient is awake and responsive in no distress Psychiatry evaluation noted Liver functions improving Continue present treatment Continue one-to-one
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
[2017-01-26 00:30] LABS: BASO % 0.6 % (0.0-2.0); EOS # 0.4 K/uL (0.0-0.7); EOS % 5.2 % (0.0-4.0); HEMATOCRIT 33.3 % (34.0-47.0); LYMPH # 1.4 K/uL (1.0-4.3); LYMPH % 20.5 % (20.0-40.0); MEAN CELL VOLUME 91.5 fL (81.0-99.0); MEAN CORPUSCULAR HEMOGLOBIN 30.3 pg (27.0-31.0); MEAN CORPUSCULAR HGB CONC 33.1 g/dL (33.0-37.0); MEAN PLATELET VOLUME 8.8 fL (7.2-11.7); MONO # 0.5 K/uL (0.0-0.8); MONO % 7.1 % (0.0-10.0); RED CELL DISTRIBUTION WIDTH 14.1 % (11.5-14.5); WHITE BLOOD COUNT 6.9 K/uL (4.8-10.8)
[2017-01-26 05:48] LABS: BASO % 0.5 % (0.0-2.0); EOS # 0.3 K/uL (0.0-0.7); EOS % 4.4 % (0.0-4.0); HEMATOCRIT 32.4 % (34.0-47.0); LYMPH # 1.6 K/uL (1.0-4.3); LYMPH % 22.4 % (20.0-40.0); MEAN CORPUSCULAR HEMOGLOBIN 31.4 pg (27.0-31.0); MEAN CORPUSCULAR HGB CONC 34.1 g/dL (33.0-37.0); MEAN PLATELET VOLUME 8.2 fL (7.2-11.7); MONO # 0.4 K/uL (0.0-0.8); MONO % 6.5 % (0.0-10.0); WHITE BLOOD COUNT 6.9 K/uL (4.8-10.8)
[2017-01-26] MEDS ORDERED: Tramadol 25 mg PO ONE (06:00)
[2017-01-26 06:01] LABS: ALKALINE PHOSPHATASE 49 U/L (38-126); ALT/SGPT 25 U/L (9-52); AST/SGOT 16 U/L (14-36); BILIRUBIN,TOTAL 0.3 mg/dL (0.2-1.3); BLOOD UREA NITROGEN 6 mg/dL (7-17); CARBON DIOXIDE 19 mmol/L (22-30); CHLORIDE 110 mmol/L (98-107); GFR AFRICAN-AMERICAN > 60; GLUCOSE,RANDOM 73 mg/dL (65-105); PHOSPHOROUS 2.4 mg/dL (2.5-4.5); POTASSIUM 3.1 mmol/L (3.6-5.2); SODIUM 140 mmol/L (132-148); TOTAL PROTEIN 5.2 g/dL (6.3-8.3)
[2017-01-26] MEDS ORDERED: Potassium Chloride 20 mEq ER Tab PO ONE (06:30)
--- NOTE | 2017-01-26 08:16 | CP.PCM.PN ---
Subjective - Date & Time of Evaluation Date of Evaluation: 01/26/17 Time of Evaluation: 08:00 - Subjective Subjective: Patient was seen and examined. She was extubated yesterday. She reports some sore throat. Feels hungry. AAOx3. She was fully conversant. She remembers drinking heavily and then does recall taking large doses of tylenol. I did try to ask her further questions however she did not feel comfortable answering these so I did not press further. She asked for fiorocet for migraines however considering her recent history of a previous suicide attempt I explained to her that we would hold off on this. LFT remain stable, Continue on 1 to 1 monitoring. Objective - Vital Signs/Intake and Output Vital Signs (last 24 hours): Temp Pulse Resp BP Pulse Ox 98.8 F 120 H 14 145/97 H 93 L 01/26/17 04:00 01/26/17 07:00 01/26/17 07:00 01/26/17 06:51 01/26/17 06:00 Intake and Output: 01/26/17 01/26/17 06:59 18:59 Intake Total 120 120 Output Total 400 300 Balance -280 -180 - Medications Medications: Current Medications Enoxaparin Sodium (Lovenox) 40 mg SC DAILY [facility] Last Admin: 01/25/17 09:43 Dose: 40 mg Escitalopram Oxalate (Lexapro) 10 mg PO DAILY [facility] Famotidine (Pepcid) 20 mg IVP DAILY [facility] Last Admin: 01/25/17 09:43 Dose: 20 mg Prazosin HCl (Minipress) 1 mg PO HS [facility] Last Admin: 01/25/17 21:47 Dose: Not Given Trazodone HCl (Desyrel) 50 mg PO HS PRN PRN Reason: Insomnia - Labs Labs: 01/26/17 05:42 01/26/17 05:44 PT 12.2 SECONDS (9.7-12.2) 01/25/17 00:57 INR 1.1 01/25/17 00:57 APTT 28 SECONDS (21-34) 01/25/17 00:57 - Constitutional Appears: Unkempt, Chronically Ill - Head Exam Head Exam: NORMAL INSPECTION - Eye Exam Eye Exam: EOMI, Normal appearance - ENT Exam ENT Exam: Mucous Membranes Moist - Respiratory Exam Respiratory Exam: Clear to Ausculation Bilateral, NORMAL BREATHING PATTERN - Cardiovascular Exam Cardiovascular Exam: REGULAR RHYTHM - GI/Abdominal Exam GI & Abdominal Exam: Soft, Normal Bowel Sounds - Neurological Exam Neurological Exam: Alert, Awake, CN II-XII Intact, Oriented x3 Neuro motor strength exam: Left Upper Extremity: 5, Right Upper Extremity: 5 - Psychiatric Exam Psychiatric exam: Normal Affect, Normal Mood - Skin Skin Exam: Normal Color, Warm Assessment and Plan - Assessment and Plan (Free Text) Assessment: Respiratory Depression Assessment and Plan: 01/26: Now extubated. Respirations stable. Speaking in full sentences 01/25: Today awake and able to respond to commands. Currently intubated at the moment. The ABG looks better today. 01/24: Patient was lethergic on admission. Currently intubated. The UDS and labwork shows + barbituates, opiates, alcohol as well as tylenol elevations. She had earlier ABGs with anion gap metabolic acidosis Suicide attempt by drug ingestion Assessment and Plan: 01/26: 01/25: Hopefully when extubated can be evaluated by psychiatry 01/24: She was recently here with similar episode. UDS showing opiates, barbituates. Also elevated alcohol and tylenol levels. Psychiatry Consult (Dr. Montenegro)- F/U recommendations Toxicology: * Acetaminophen: 68 * Alcohol level: 89 Patient administered Zofran 4mg IV, Narcan 4mg IV, Acetylcysteine Continue IV fluids Patient will benefit from counseling services EKG- Sinus Tach Head CT- negative for intracranial bleed History of Drug overdose Assessment and Plan: Management per Psych Patient will benefit from counseling services Tylenol overdose and metabolic acidosis. Assessment and Plan: 01/26: Again the LFTs are stable. Acidosis resolved 01/25: LFTs and INRs are stable. The acetylcystein was done earlier in the morning. 01/24 Continue with IVF, she has already received acetylcystien and from what I understand this will be continued throughout the day Monitor renal and liver functionality Patient will benefit from counseling services Management per Psych Prophylactic measure Assessment and Plan: SCDs PPI 40 mg IV daily Seizure precautions, Fall risk precautions
--- NOTE | 2017-01-26 09:28 | CP.CCUPN ---
CCU Subjective - Physician Review Events Since Last Encounter (Free Text): 01/26/17 09:27 Patient is still continues to have a headache. Extubated yesterday. Awake and responding. Feeling hungry at this time Vital signs chronic is stable and discussed with the patient. Labs reviewed Medications reviewed Clinical stable, she can be transferred to the regular medical floor CCU Objective - Vital Signs / Intake & Output Vital Signs (Last 4 hours): Vital Signs Pulse Resp BP Pulse Ox 01/26/17 07:00 120 H 14 01/26/17 06:51 112 H 14 145/97 H 01/26/17 06:00 102 H 16 93 L 01/26/17 05:51 148/91 H 01/26/17 05:50 101 H 16 97 Intake and Output (Last 8hrs): Intake & Output 01/25/17 01/26/17 01/26/17 22:59 06:59 14:59 Intake Total 0 120 120 Output Total 210 400 300 Balance -210 -280 -180 Weight 215 lb Intake: Intake, IV Amount 0 Left Antecubital 0 Oral 120 120 Output: Urine 210 400 300 Urethral (Haddad) 210 0 Urine, Voided 400 300 Other: # Voids Urine, Voided 1 1 - Physical Exam Head: Negative for: Atraumatic, Normocephalic Extroacular Muscles: Negative for: EOMI Mouth: Negative for: Moist Mucous Membranes Respiratory/Chest: Negative for: Clear to Auscultation, Wheezes, Rales, Rhonchi Cardiovascular: Positive for: Regular Rate and Rhythm, Normal S1, S2. Negative for: Murmurs Abdomen: Positive for: Normal Bowel Sounds. Negative for: Tenderness, Distention Upper Extremity: Negative for: Normal Inspection, Edema Lower Extremity: Negative for: Normal Inspection, Edema Skin: Negative for: Warm, Dry, Normal Color Psychiatric: Negative for: Alert, Oriented x 3 - Medications Active Medications: Active Medications Generic Name Dose Route Start Last Admin Trade Name Freq PRN Reason Stop Dose Admin Enoxaparin Sodium 40 mg 01/24/17 11:30 01/25/17 09:43 Lovenox SC 40 mg DAILY [facility] Administration Escitalopram Oxalate 10 mg 01/26/17 10:00 Lexapro PO DAILY [facility] Famotidine 20 mg 01/24/17 10:00 01/25/17 09:43 Pepcid IVP 20 mg DAILY [facility] Administration Ondansetron HCl 4 mg 01/26/17 09:15 Zofran Inj IVP Q6H PRN Nausea/Vomiting Prazosin HCl 1 mg 01/25/17 22:00 01/25/17 21:47 Minipress PO Not Given HS [facility] Trazodone HCl 50 mg 01/25/17 22:00 Desyrel PO HS PRN Insomnia - Patient Studies Lab Studies: Microbiology Studies 01/24/17 03:48 MRSA Culture (Admit) - Final Nose MRSA NOT DETECTED Lab Studies 01/26/17 01/26/17 01/26/17 Range/Units 05:44 05:42 00:26 WBC 6.9 6.9 (4.8-10.8) K/uL RBC 3.53 L 3.64 L (3.80-5.20) Mil/uL Hgb 11.1 11.0 (11.0-16.0) g/dL Hct 32.4 L 33.3 L (34.0-47.0) % MCV 92.0 91.5 (81.0-99.0) fL MCH 31.4 H 30.3 (27.0-31.0) pg MCHC 34.1 33.1 (33.0-37.0) g/dL RDW 14.0 14.1 (11.5-14.5) % Plt Count 165 159 (130-400) K/uL MPV 8.2 8.8 (7.2-11.7) fL Neut % (Auto) 66.2 66.6 (50.0-75.0) % Lymph % (Auto) 22.4 20.5 (20.0-40.0) % Real % (Auto) 6.5 7.1 (0.0-10.0) % Eos % (Auto) 4.4 H 5.2 H (0.0-4.0) % Baso % (Auto) 0.5 0.6 (0.0-2.0) % Neut # 4.6 4.6 (1.8-7.0) K/uL Lymph # 1.6 1.4 (1.0-4.3) K/uL Real # 0.4 0.5 (0.0-0.8) K/uL Eos # 0.3 0.4 (0.0-0.7) K/uL Baso # 0.0 0.0 (0.0-0.2) K/uL Sodium 140 (132-148) mmol/L Potassium 3.1 L (3.6-5.2) mmol/L Chloride 110 H (98-107) mmol/L Carbon Dioxide 19 L (22-30) mmol/L Anion Gap 14 (10-20) BUN 6 L (7-17) mg/dL Creatinine 0.5 L (0.7-1.2) MG/DL Est GFR ( Amer) > 60 Est GFR (Non-Af Amer) > 60 Random Glucose 73 (65-105) mg/dL Calcium 8.0 L (8.6-10.4) mg/dl Phosphorus 2.4 L (2.5-4.5) mg/dL Magnesium 2.0 (1.6-2.3) mg/dL Total Bilirubin 0.3 (0.2-1.3) mg/dL AST 16 (14-36) U/L ALT 25 (9-52) U/L Alkaline Phosphatase 49 (38-126) U/L Total Protein 5.2 L (6.3-8.3) g/dL Albumin 2.6 L (3.5-5.0) g/dL Globulin 2.5 (2.2-3.9) gm/dL Albumin/Globulin Ratio 1.0 (1.0-2.1) Laboratory Results - last 24 hr 01/26/17 01/26/17 01/26/17 00:26 05:42 05:44 WBC 6.9 6.9 RBC 3.64 L 3.53 L Hgb 11.0 11.1 Hct 33.3 L 32.4 L MCV 91.5 92.0 MCH 30.3 31.4 H MCHC 33.1 34.1 RDW 14.1 14.0 Plt Count 159 165 MPV 8.8 8.2 Neut % (Auto) 66.6 66.2 Lymph % (Auto) 20.5 22.4 Real % (Auto) 7.1 6.5 Eos % (Auto) 5.2 H 4.4 H Baso % (Auto) 0.6 0.5 Neut # 4.6 4.6 Lymph # 1.4 1.6 Real # 0.5 0.4 Eos # 0.4 0.3 Baso # 0.0 0.0 Sodium 140 Potassium 3.1 L Chloride 110 H Carbon Dioxide 19 L Anion Gap 14 BUN 6 L Creatinine 0.5 L Est GFR ( Amer) > 60 Est GFR (Non-Af Amer) > 60 Random Glucose 73 Calcium 8.0 L Phosphorus 2.4 L Magnesium 2.0 Total Bilirubin 0.3 AST 16 ALT 25 Alkaline Phosphatase 49 Total Protein 5.2 L Albumin 2.6 L Globulin 2.5 Albumin/Globulin Ratio 1.0 Fingerstick Blood Sugar Results: 135 Critical Care Progress Note - Nutrition Nutrition: Nutrition Category Date Time Status Regular Diet [DIET] Diets 01/26/17 Lunch Active
[2017-01-26] MEDS: Enoxaparin 40 mg Syringe SC SCH (09:41)
[2017-01-26] MEDS: Multiple Vitamins Tab PO SCH (15:30)
--- NOTE | 2017-01-26 18:23 | PCM.PYCHPN ---
Psychiatric Progress Note - Psychiatric Progress Note Patient seen today, length of contact: 20 minutes Patient Chief Complaint: "I want to go home" Problems Identified/Issues Discussed: Mrs Duncan is a 36 year old female with a past psychiatric history of bipolar disorder, anxiety, depression and 2 previous suicide attempts (most recent - last month) who was brought by EMS after OD on acetaminophen with codeine, topamax and alcohol. The pt was intubated and yesterday extubated. Pt was seen and evaluated. Pt stated that she is feeling fine and wants to discharge home. She reported that she had relapse on etoh 10/2016 after coming to [place]. The pt stated that she was drinking 1/2 pint of vodka daily, additionally she stated that she had etoh withdrawal symptoms and needs to drink etoh in the morning. However she denied any blackout, seizure secondary to alcohol. CAGE questionnaire was positive. She stated that she had migraine and her doctor had prescribed her migraine medication including fioricet and want to take it again. She reported etoh withdrawal symptoms, including increase in HR, headaches feeling cold and hot sweats, n/v, dizzy and shaky. She reported that she is feeling guilty about her drinking habit. She denied any suicidal ideation , intent or plan. She denied that taking fioricet with etoh was a suicide attempt. She endorsed that due to intoxication, she miscalculated the meds adn took extraa meds. She denied perceptual disturbances. She reported depressed mood, worthlessness, but hopeful that after d/c will not repeat the same mistake. Diagnostic Results: Lab Studies 01/26/17 01/26/17 01/26/17 Range/Units 05:44 05:42 00:26 WBC 6.9 6.9 (4.8-10.8) K/uL RBC 3.53 L 3.64 L (3.80-5.20) Mil/uL Hgb 11.1 11.0 (11.0-16.0) g/dL Hct 32.4 L 33.3 L (34.0-47.0) % MCV 92.0 91.5 (81.0-99.0) fL MCH 31.4 H 30.3 (27.0-31.0) pg MCHC 34.1 33.1 (33.0-37.0) g/dL RDW 14.0 14.1 (11.5-14.5) % Plt Count 165 159 (130-400) K/uL MPV 8.2 8.8 (7.2-11.7) fL Neut % (Auto) 66.2 66.6 (50.0-75.0) % Lymph % (Auto) 22.4 20.5 (20.0-40.0) % Rolette % (Auto) 6.5 7.1 (0.0-10.0) % Eos % (Auto) 4.4 H 5.2 H (0.0-4.0) % Baso % (Auto) 0.5 0.6 (0.0-2.0) % Neut # 4.6 4.6 (1.8-7.0) K/uL Lymph # 1.6 1.4 (1.0-4.3) K/uL Rolette # 0.4 0.5 (0.0-0.8) K/uL Eos # 0.3 0.4 (0.0-0.7) K/uL Baso # 0.0 0.0 (0.0-0.2) K/uL Sodium 140 (132-148) mmol/L Potassium 3.1 L (3.6-5.2) mmol/L Chloride 110 H (98-107) mmol/L Carbon Dioxide 19 L (22-30) mmol/L Anion Gap 14 (10-20) BUN 6 L (7-17) mg/dL Creatinine 0.5 L (0.7-1.2) MG/DL Est GFR ( Amer) > 60 Est GFR (Non-Af Amer) > 60 Random Glucose 73 (65-105) mg/dL Calcium 8.0 L (8.6-10.4) mg/dl Phosphorus 2.4 L (2.5-4.5) mg/dL Magnesium 2.0 (1.6-2.3) mg/dL Total Bilirubin 0.3 (0.2-1.3) mg/dL AST 16 (14-36) U/L ALT 25 (9-52) U/L Alkaline Phosphatase 49 (38-126) U/L Total Protein 5.2 L (6.3-8.3) g/dL Albumin 2.6 L (3.5-5.0) g/dL Globulin 2.5 (2.2-3.9) gm/dL Albumin/Globulin Ratio 1.0 (1.0-2.1) Laboratory Results - last 24 hr 01/26/17 01/26/17 01/26/17 00:26 05:42 05:44 WBC 6.9 6.9 RBC 3.64 L 3.53 L Hgb 11.0 11.1 Hct 33.3 L 32.4 L MCV 91.5 92.0 MCH 30.3 31.4 H MCHC 33.1 34.1 RDW 14.1 14.0 Plt Count 159 165 MPV 8.8 8.2 Neut % (Auto) 66.6 66.2 Lymph % (Auto) 20.5 22.4 Rolette % (Auto) 7.1 6.5 Eos % (Auto) 5.2 H 4.4 H Baso % (Auto) 0.6 0.5 Neut # 4.6 4.6 Lymph # 1.4 1.6 Rolette # 0.5 0.4 Eos # 0.4 0.3 Baso # 0.0 0.0 Sodium 140 Potassium 3.1 L Chloride 110 H Carbon Dioxide 19 L Anion Gap 14 BUN 6 L Creatinine 0.5 L Est GFR ( Amer) > 60 Est GFR (Non-Af Amer) > 60 Random Glucose 73 Calcium 8.0 L Phosphorus 2.4 L Magnesium 2.0 Total Bilirubin 0.3 AST 16 ALT 25 Alkaline Phosphatase 49 Total Protein 5.2 L Albumin 2.6 L Globulin 2.5 Albumin/Globulin Ratio 1.0 Fingerstick Blood Sugar Results: 135 Medication Change: Yes (add etoh detox protocol with [facility]) Medical Record Reviewed: Yes Mental Status Examination - Cognitive Function Orientation: Person, Place, Situation, Time Memory: Intact Attention: WNL Concentration: WNL Association: WNL Fund of Knowledge: WN Decription of patient's judgement and insights: pt appeared stated age, fair grooming, lying in the bed, superficially cooperative Addtional comments: limited/limited - Mood Mood: Depressed, Anxious - Affect Affect: Constricted, Depressed - Speech Speech: Soft - Language Additional comments: adequate to age - Formal Thought Process Formal Thought Process: No Impairment Psychotic Thoughts and Behaviors: no A/V/H, or paranoid delusions - Suicidal Ideation Suicidal Ideation: No - Homicidal Ideation Homicidal Ideation: No Goal/Treatment Plan - Goal/Treatment Plan Need for Continued Stay: Remain at risks for inpatient hospitalization, Severe depression anxiety, Discharge may exacerbated symptoms Progress Toward Problem(s) and Goals/Treatment Plan: Pt needs to stabilized on meds. Monitor vitals. Alcohol detox with Ativan, Recommend to [facility] Q12 h. Psych C/L will follow. Pt can not leave AMA/ discharge without psych approval. Pt needs to be admitted to , once medically cleared. Pt is in agreement with the plan. Recommend to continue current meds and treatment as per primary team. Supportive therapy was provided. - Smoking Cessation Smoking Cessation Initiated: Yes
[2017-01-27] MEDS: Enoxaparin 40 mg Syringe SC SCH (10:24)
[2017-01-27] MEDS: Multiple Vitamins Tab PO SCH (10:24)
--- NOTE | 2017-01-27 13:05 | CP.PCM.PN ---
Subjective - Date & Time of Evaluation Date of Evaluation: 01/27/17 Time of Evaluation: 07:00 - Subjective Subjective: Medicine Note for Dr. Powell Patient was seen and examined at bedside. Patient reports she feels well. No acute complaints. Denied fever, chills, headache, chest pain, SOB, abdominal pain, n/v/d/c, or urinary symptoms. Objective - Vital Signs/Intake and Output Vital Signs (last 24 hours): Temp Pulse Resp BP Pulse Ox 99.0 F 101 H 13 132/84 95 01/27/17 04:00 01/27/17 09:00 01/27/17 09:00 01/26/17 15:00 01/27/17 04:00 Intake and Output: 01/27/17 01/27/17 06:59 18:59 Intake Total 240 0 Output Total 500 3000 Balance -260 -3000 - Medications Medications: Current Medications Enoxaparin Sodium (Lovenox) 40 mg SC DAILY [facility] Last Admin: 01/27/17 10:24 Dose: 40 mg Escitalopram Oxalate (Lexapro) 10 mg PO DAILY [facility] Last Admin: 01/27/17 10:33 Dose: Not Given Famotidine (Pepcid) 20 mg IVP DAILY [facility] Last Admin: 01/27/17 10:25 Dose: 20 mg Folic Acid (Folic Acid) 1 mg PO DAILY [facility] Last Admin: 01/27/17 10:24 Dose: 1 mg Ibuprofen (Motrin Tab) 600 mg PO BID PRN PRN Reason: Headache Last Admin: 01/27/17 12:20 Dose: 600 mg Lorazepam (Ativan) 1 mg PO Q8H PRN; Taper PRN Reason: Symptoms of alcohol withdrawl Stop: 01/31/17 14:58 Last Admin: 01/27/17 10:39 Dose: 1 mg Multivitamins (Hexavitamin) 1 tab PO DAILY [facility] Last Admin: 01/27/17 10:24 Dose: 1 tab Ondansetron HCl (Zofran Inj) 4 mg IVP Q6H PRN PRN Reason: Nausea/Vomiting Last Admin: 01/27/17 08:17 Dose: 4 mg Prazosin HCl (Minipress) 1 mg PO HS [facility] Last Admin: 01/26/17 22:13 Dose: 1 mg Thiamine HCl (Vitamin B1 Tab) 100 mg PO DAILY [facility] Last Admin: 01/27/17 10:24 Dose: 100 mg Trazodone HCl (Desyrel) 50 mg PO HS PRN PRN Reason: Insomnia Last Admin: 01/27/17 00:40 Dose: 50 mg - Labs Labs: 01/26/17 05:42 01/26/17 05:44 PT 12.2 SECONDS (9.7-12.2) 01/25/17 00:57 INR 1.1 01/25/17 00:57 APTT 28 SECONDS (21-34) 01/25/17 00:57 - Constitutional Appears: No Acute Distress - Head Exam Head Exam: NORMAL INSPECTION, NORMOCEPHALIC - Eye Exam Eye Exam: EOMI, Normal appearance, PERRL Pupil Exam: NORMAL ACCOMODATION - ENT Exam ENT Exam: Mucous Membranes Moist - Neck Exam Neck Exam: Normal Inspection - Respiratory Exam Respiratory Exam: Clear to Ausculation Bilateral, NORMAL BREATHING PATTERN. absent: Wheezes - Cardiovascular Exam Cardiovascular Exam: REGULAR RHYTHM, RRR, +S1, +S2 - GI/Abdominal Exam GI & Abdominal Exam: Soft, Normal Bowel Sounds. absent: Distended, Tenderness - Extremities Exam Extremities Exam: Normal Inspection. absent: Pedal Edema, Tenderness - Neurological Exam Neurological Exam: Alert, Awake, Oriented x3 - Skin Skin Exam: Dry, Intact, Normal Color, Warm Assessment and Plan - Assessment and Plan (Free Text) Plan: Suicide attempt by drug ingestion Assessment and Plan: 2nd suicide attempt in 1 month, pending psychiatry recommendation. 01/25: Hopefully when extubated can be evaluated by psychiatry 01/24: She was recently here with similar episode. UDS showing opiates, barbituates. Also elevated alcohol and tylenol levels. Psychiatry Consult (Dr. Montenegro)- F/U recommendations Toxicology: * Acetaminophen: 68 * Alcohol level: 89 Patient administered Zofran 4mg IV, Narcan 4mg IV, Acetylcysteine Continue IV fluids Patient will benefit from counseling services EKG- Sinus Tach Head CT- negative for intracranial bleed Respiratory Depression Assessment and Plan: 01/26: Extubated. Respirations stable. Speaking in full sentences 01/25: Today awake and able to respond to commands. Currently intubated at the moment. The ABG looks better today. 01/24: Patient was lethergic on admission. Currently intubated. The UDS and labwork shows + barbituates, opiates, alcohol as well as tylenol elevations. She had earlier ABGs with anion gap metabolic acidosis History of Drug overdose Assessment and Plan: Management per Psych Patient will benefit from counseling services Tylenol overdose and metabolic acidosis. Assessment and Plan: 01/26: Again the LFTs are stable. Acidosis resolved 01/25: LFTs and INRs are stable. The acetylcystein was done earlier in the morning. 01/24 Continue with IVF, she has already received acetylcystien and from what I understand this will be continued throughout the day Monitor renal and liver functionality Patient will benefit from counseling services Management per Psych Prophylactic measure Assessment and Plan: SCDs PPI 40 mg IV daily Seizure precautions, Fall risk precautions DW Branden Mtz DO, PGY-1
[2017-01-27 13:31] LABS: BASO % 0.7 % (0.0-2.0); EOS # 0.2 K/uL (0.0-0.7); EOS % 2.9 % (0.0-4.0); HEMATOCRIT 37.6 % (34.0-47.0); LYMPH # 1.1 K/uL (1.0-4.3); LYMPH % 15.2 % (20.0-40.0); MEAN CELL VOLUME 90.6 fL (81.0-99.0); MEAN CORPUSCULAR HEMOGLOBIN 30.7 pg (27.0-31.0); MEAN CORPUSCULAR HGB CONC 33.9 g/dL (33.0-37.0); MEAN PLATELET VOLUME 8.6 fL (7.2-11.7); MONO # 0.3 K/uL (0.0-0.8); MONO % 4.1 % (0.0-10.0); RED CELL DISTRIBUTION WIDTH 13.9 % (11.5-14.5); WHITE BLOOD COUNT 7.2 K/uL (4.8-10.8)
[2017-01-27 13:45] LABS: CHLORIDE 107 mmol/L (98-107); POTASSIUM 3.9 mmol/L (3.6-5.2); SODIUM 139 mmol/L (132-148)
[2017-01-27 13:47] LABS: BILIRUBIN,TOTAL 0.4 mg/dL (0.2-1.3); CARBON DIOXIDE 21 mmol/L (22-30); GFR AFRICAN-AMERICAN > 60
[2017-01-27 13:48] LABS: ALB/GLOB RATIO 1.1 (1.0-2.1); ALKALINE PHOSPHATASE 68 U/L (38-126); ALT/SGPT 24 U/L (9-52); AST/SGOT 23 U/L (14-36); BLOOD UREA NITROGEN 4 mg/dL (7-17); CALCIUM 8.7 mg/dl (8.6-10.4); GLUCOSE,RANDOM 124 mg/dL (65-105); TOTAL PROTEIN 6.2 g/dL (6.3-8.3)
[2017-01-27] MEDS ORDERED: Tramadol 25 mg PO ONE (19:36)
[2017-01-28 05:22] LABS: BASO # 0.1 K/uL (0.0-0.2); BASO % 0.6 % (0.0-2.0); EOS # 0.3 K/uL (0.0-0.7); EOS % 3.2 % (0.0-4.0); HEMATOCRIT 39.5 % (34.0-47.0); LYMPH # 1.7 K/uL (1.0-4.3); LYMPH % 21.4 % (20.0-40.0); MEAN CELL VOLUME 91.6 fL (81.0-99.0); MEAN CORPUSCULAR HGB CONC 33.8 g/dL (33.0-37.0); MEAN PLATELET VOLUME 8.4 fL (7.2-11.7); MONO # 0.6 K/uL (0.0-0.8); MONO % 7.2 % (0.0-10.0); NRBC % 0.1 % (0.0-2.0); RED CELL DISTRIBUTION WIDTH 13.7 % (11.5-14.5); WHITE BLOOD COUNT 8.2 K/uL (4.8-10.8)
[2017-01-28 06:24] LABS: CHLORIDE 109 mmol/L (98-107); POTASSIUM 3.5 mmol/L (3.6-5.2); SODIUM 138 mmol/L (132-148)
[2017-01-28 06:26] LABS: AST/SGOT 84 U/L (14-36); BILIRUBIN,TOTAL 0.5 mg/dL (0.2-1.3); CARBON DIOXIDE 17 mmol/L (22-30); GFR AFRICAN-AMERICAN > 60
[2017-01-28 06:27] LABS: ALB/GLOB RATIO 1.2 (1.0-2.1); ALKALINE PHOSPHATASE 70 U/L (38-126); ALT/SGPT 66 U/L (9-52); BLOOD UREA NITROGEN 6 mg/dL (7-17); CALCIUM 9.2 mg/dl (8.6-10.4); GLUCOSE,RANDOM 103 mg/dL (65-105); TOTAL PROTEIN 6.3 g/dL (6.3-8.3)
[2017-01-28] MEDS: Multiple Vitamins Tab PO SCH (10:30)
[2017-01-28] MEDS: Enoxaparin 40 mg Syringe SC SCH (10:49)
[2017-01-28] MEDS ORDERED: Potassium Chloride 20 mEq ER Tab PO ONE (12:42)
--- NOTE | 2017-01-28 13:33 | PCM.BM ---
<Radha Flynn - Last Filed: 01/28/17 13:31> Treatment Plan Problems - Problems identified on initial assessmt Depression Date Initiated: 01/28/17 Time Initiated: 13:32 Assessment reference: NA Status: Active Priority: 1 Suicidal Ideation Date Initiated: 01/28/17 Time Initiated: 13:32 Assessment reference: NA Status: Monitor Priority: 2 - Milieu Protocol Milieu Narrative: Pt needs to stabilized on meds. Monitor vitals. Alcohol detox with Ativan, Recommend to [facility] Q12 h. Psych C/L will follow. Pt can not leave AMA/ discharge without psych approval. Pt needs to be admitted to [facility], once medically cleared. Pt is in agreement with the plan. Recommend to continue current meds and treatment as per primary team. Supportive therapy was provided. Discharge/Continuing Care - Treatment Team Participation Patient/Family/SO Statement: Pt needs to stabilized on meds. Monitor vitals. Alcohol detox with Ativan, Recommend to [facility] Q12 h. Psych C/L will follow. Pt can not leave AMA/ discharge without psych approval. Pt needs to be admitted to 5E, once medically cleared. Pt is in agreement with the plan. Recommend to continue current meds and treatment as per primary team. Supportive therapy was provided. <Maryam Montenegro - Last Filed: 01/28/17 23:51> - Diagnosis (1) History of alcohol abuse Status: Chronic Interventions: 01/28/17 23:52 * Assess 7x/week regarding severity of withdrawal * Educate regarding risks, benefits, side effects and alternatives of medications * Use Motivational Interviewing for abstinence * Use CBT for relapse prevention * Medication management for withdrawal symptoms * Encourage medication assisted treatment * (2) Major depression Status: Acute Interventions: 01/28/17 23:52 * Assess/adjust medications daily and /or as needed * See patient on an individual basis 7x/week to assess symptoms of depression * Monitor for side effects & effectiveness of medications * (3) Suicide attempt by drug ingestion Status: Acute Interventions: 01/28/17 23:53 * Assess/adjust medications daily and /or as needed * Discuss risks, benefits, side effects and alternatives of medications * See patient on an individual basis 7x/week to assess level of suicidal thoughts * <Johana Candelaria - Last Filed: 01/30/17 10:47> Family Contact Family involvement: Family/SO is involved Family contact: Patient agrees to contact Family contact name: Georgette Carranza Family contacted how many times per week?: 1 - Goals for Treatment Patient goals for treatment: "I want to go back to [place]." Discharge/Continuing Care - Education Needs Education Needs: Patient Medication, Patient Coping Skills - Discharge Discharge Criteria: Tolerates medication w/o severe side effects, Reduction of target symptoms Discharge to:: Home, With Family - Treatment Team Participation Discussed with Family/SO: Yes Was Patient/Family/SO present at Treatment Team Meeting: Yes
--- NOTE | 2017-01-28 14:10 | PCM.PYCHPN ---
Psychiatric Progress Note - Psychiatric Progress Note Patient seen today, length of contact: 15 minutes Patient Chief Complaint: "I feel okay" Problems Identified/Issues Discussed: The pt is seen, chart reviewed, case discussed with staff. Patient is feeling "okay" today. The pt is compliant with medications and reports no side-effects. Patient denies SI/ HI. Patient planning to go back to [place] where she has more support from family members and friends. After care discussed, support and psychoeducation given. Medication Change: No Medical Record Reviewed: Yes Mental Status Examination - Cognitive Function Orientation: Person, Place, Situation, Time Memory: Intact Attention: WNL Concentration: WNL Association: WN Fund of Knowledge: WNL - Mood Mood: Depressed, Anxious - Affect Affect: Constricted, Depressed - Speech Speech: Soft - Formal Thought Process Formal Thought Process: No Impairment - Suicidal Ideation Suicidal Ideation: No - Homicidal Ideation Homicidal Ideation: No Goal/Treatment Plan - Goal/Treatment Plan Need for Continued Stay: Remain at risks for inpatient hospitalization, Severe depression anxiety, Discharge may exacerbated symptoms Progress Toward Problem(s) and Goals/Treatment Plan: Pt admitted to . Pt needs to be stabilized on meds. Monitor vitals. Alcohol detox with Ativan, Recommend to [facility] Q12 h. Psych C/L will follow. Pt can not leave AMA/ discharge without psych approval. Recommend to continue current meds and treatment as per primary team. Supportive therapy was provided.
[2017-01-28] MEDS: Ondansetron HCl 4 mg/5 ml Oral Soln PO PRN (17:27)
--- NOTE | 2017-01-29 07:39 | CP.PCM.CON ---
Past Patient History - Past Medical History & Family History Past Medical History?: Yes - Past Social History Smoking Status: Light Smoker < 10 Cigarettes Daily Drugs: Cocaine, Opiates, Prescription medications - CARDIAC Hx Hypertension: Yes - PULMONARY Hx Respiratory Disorders: No - NEUROLOGICAL Hx Migraine: Yes - HEENT Hx HEENT Problems: No - RENAL Hx Chronic Kidney Disease: No - ENDOCRINE/METABOLIC Hx Endocrine Disorders: No - HEMATOLOGICAL/ONCOLOGICAL Hx Blood Disorders: No - INTEGUMENTARY Hx Dermatological Problems: No - MUSCULOSKELETAL/RHEUMATOLOGICAL Hx Musculoskeletal Disorders: No - GASTROINTESTINAL Hx Gastrointestinal Disorders: No - GENITOURINARY/GYNECOLOGICAL Hx Genitourinary Disorders: No - PSYCHIATRIC Hx Substance Use: No - SURGICAL HISTORY Hx Surgeries: No - ANESTHESIA Hx Anesthesia: No Meds Allergies/Adverse Reactions: Allergies Allergy/AdvReac Type Severity Reaction Status Date / Time cephalexin [From Keflex] Allergy Verified 12/21/16 00:31 clindamycin Allergy Verified 12/21/16 00:31 Penicillins Allergy Verified 12/21/16 00:31 Sulfa (Sulfonamide Allergy Verified 12/21/16 00:31 Antibiotics) - Medications Medications: Current Medications Chlordiazepoxide (Librium) 25 mg PO TID [facility] PRN Reason: Taper Stop: 01/31/17 17:59 Last Admin: 01/28/17 17:27 Dose: 25 mg Enoxaparin Sodium (Lovenox) 40 mg SC DAILY [facility] Last Admin: 01/28/17 10:49 Dose: 40 mg Escitalopram Oxalate (Lexapro) 10 mg PO DAILY [facility] Last Admin: 01/28/17 10:30 Dose: 10 mg Famotidine (Pepcid) 20 mg PO DAILY [facility] Last Admin: 01/28/17 11:32 Dose: 20 mg Folic Acid (Folic Acid) 1 mg PO DAILY [facility] Last Admin: 01/28/17 10:30 Dose: 1 mg Gabapentin (Neurontin) 300 mg PO BID [facility] Last Admin: 01/28/17 17:27 Dose: 300 mg Hydroxyzine HCl (Atarax) 50 mg PO Q6H PRN PRN Reason: Anxiety Last Admin: 01/28/17 23:58 Dose: 50 mg Ibuprofen (Motrin Tab) 600 mg PO BID PRN PRN Reason: Headache Last Admin: 01/29/17 04:47 Dose: 600 mg Multivitamins (Hexavitamin) 1 tab PO DAILY [facility] Last Admin: 01/28/17 10:30 Dose: 1 tab Nicotine (Nicoderm Cq) 1 patch TD DAILY [facility] Last Admin: 01/28/17 10:31 Dose: 1 patch Ondansetron HCl (Zofran Oral Soln) 2 mg PO Q8H PRN PRN Reason: Nausea/Vomiting Last Admin: 01/28/17 17:27 Dose: 2 mg Prazosin HCl (Minipress) 1 mg PO HS [facility] Last Admin: 01/28/17 21:19 Dose: 1 mg Thiamine HCl (Vitamin B1 Tab) 100 mg PO DAILY [facility] Last Admin: 01/28/17 10:30 Dose: 100 mg Trazodone HCl (Desyrel) 100 mg PO HS PRN PRN Reason: Insomnia Results - Vital Signs Recent Vital Signs: Last Vital Signs Temp 98.9 F 01/28/17 04:30 Pulse 110 H 01/28/17 15:32 Resp 15 01/27/17 14:00 BP 131/95 H 01/28/17 15:32 Pulse Ox 95 01/27/17 04:00 - Labs Result Diagrams: 01/28/17 05:16 01/28/17 05:16
[2017-01-29 08:38] LABS: BASO # 0.1 K/uL (0.0-0.2); BASO % 1.1 % (0.0-2.0); EOS # 0.2 K/uL (0.0-0.7); EOS % 2.6 % (0.0-4.0); HEMATOCRIT 40.6 % (34.0-47.0); LYMPH # 1.7 K/uL (1.0-4.3); LYMPH % 20.4 % (20.0-40.0); MEAN CELL VOLUME 91.2 fL (81.0-99.0); MEAN CORPUSCULAR HEMOGLOBIN 30.6 pg (27.0-31.0); MEAN CORPUSCULAR HGB CONC 33.6 g/dL (33.0-37.0); MEAN PLATELET VOLUME 8.2 fL (7.2-11.7); MONO # 0.6 K/uL (0.0-0.8); MONO % 7.8 % (0.0-10.0); RED CELL DISTRIBUTION WIDTH 14.2 % (11.5-14.5); WHITE BLOOD COUNT 8.2 K/uL (4.8-10.8)
[2017-01-29 08:48] LABS: CHLORIDE 106 mmol/L (98-107); POTASSIUM 3.8 mmol/L (3.6-5.2); SODIUM 140 mmol/L (132-148)
[2017-01-29 08:50] LABS: GFR AFRICAN-AMERICAN > 60
[2017-01-29 08:51] LABS: ALB/GLOB RATIO 1.3 (1.0-2.1); ALKALINE PHOSPHATASE 85 U/L (38-126); ALT/SGPT 71 U/L (9-52); AST/SGOT 45 U/L (14-36); BILIRUBIN,TOTAL 0.5 mg/dL (0.2-1.3); BLOOD UREA NITROGEN 8 mg/dL (7-17); CARBON DIOXIDE 21 mmol/L (22-30); GLUCOSE,RANDOM 99 mg/dL (65-105); TOTAL PROTEIN 7.3 g/dL (6.3-8.3)
[2017-01-29 08:52] LABS: CALCIUM 9.3 mg/dl (8.6-10.4)
[2017-01-29] MEDS: Multiple Vitamins Tab PO SCH (09:50)
--- NOTE | 2017-01-29 13:04 | PCM.PYCHPN ---
Psychiatric Progress Note - Psychiatric Progress Note Patient seen today, length of contact: 15 minutes Patient Chief Complaint: "I feel not good" Problems Identified/Issues Discussed: The pt is seen, chart reviewed, case discussed with staff. Patient is feeling "not good" today. Patient is crying and upset. Patient says she is feeling lost. Patient thinks it will be best to go home since she has no family support in [place]. The pt is compliant with medications and reports no side-effects. Patient denies SI/ HI. Patient will try to go back to [place] for more treatment where she has family and friends. Patient understands that her recovery will take time. After care discussed, support and psychoeducation given. Discussed positives of life with the patient. Medication Change: No Medical Record Reviewed: Yes Mental Status Examination - Cognitive Function Orientation: Person, Place, Situation, Time Memory: Intact Attention: WNL Concentration: WNL Association: WNL Fund of Knowledge: WNL - Mood Mood: Depressed, Anxious - Affect Affect: Constricted, Depressed - Speech Speech: Appropriate - Formal Thought Process Formal Thought Process: No Impairment - Suicidal Ideation Suicidal Ideation: No - Homicidal Ideation Homicidal Ideation: No Goal/Treatment Plan - Goal/Treatment Plan Need for Continued Stay: Remain at risks for inpatient hospitalization, Severe depression anxiety, Discharge may exacerbated symptoms Progress Toward Problem(s) and Goals/Treatment Plan: Continue medications. Librium Taper Lexapro 10 mg po daily Neurontin 300 mg PO BID Support and psychoeducation daily Attend groups and activities daily After care planning
--- NOTE | 2017-01-29 14:30 | CP.PCM.PN ---
<Enio Garcia - Last Filed: 01/29/17 17:54> Subjective - Date & Time of Evaluation Date of Evaluation: 01/29/17 Time of Evaluation: 07:38 - Subjective Subjective: PGY1 Medicine Note for Dr. Anaya Patient seen and examined at bedside this afternoon. Patient states that she has not slept in 72 hours due to migraines. Patient is requesting something to help her with the pain. Patient is visibly upset stating that she drinks too much and has attempted to kill herself 3 times since moving up north from [place]. Patient has no other complaints at this time. Denies f/c, n/v, d/c, sob or cp. Objective - Vital Signs/Intake and Output Vital Signs (last 24 hours): Temp Pulse Resp BP Pulse Ox 98.9 F 110 H 15 131/95 H 95 01/28/17 04:30 01/28/17 15:32 01/27/17 14:00 01/28/17 15:32 01/27/17 04:00 - Medications Medications: Current Medications Chlordiazepoxide (Librium) 25 mg PO TID [facility] PRN Reason: Taper Stop: 01/31/17 17:59 Last Admin: 01/29/17 14:10 Dose: 25 mg Enoxaparin Sodium (Lovenox) 40 mg SC DAILY [facility] Last Admin: 01/28/17 10:49 Dose: 40 mg Escitalopram Oxalate (Lexapro) 10 mg PO DAILY [facility] Last Admin: 01/29/17 09:51 Dose: Not Given Famotidine (Pepcid) 20 mg PO DAILY [facility] Last Admin: 01/29/17 09:50 Dose: 20 mg Folic Acid (Folic Acid) 1 mg PO DAILY [facility] Last Admin: 01/29/17 09:50 Dose: 1 mg Gabapentin (Neurontin) 300 mg PO BID [facility] Last Admin: 01/29/17 09:50 Dose: 300 mg Hydroxyzine HCl (Atarax) 50 mg PO Q6H PRN PRN Reason: Anxiety Last Admin: 01/28/17 23:58 Dose: 50 mg Ibuprofen (Motrin Tab) 600 mg PO BID PRN PRN Reason: Headache Last Admin: 01/29/17 11:16 Dose: 600 mg Lisinopril (Zestril) 10 mg PO DAILY [facility] Multivitamins (Hexavitamin) 1 tab PO DAILY [facility] Last Admin: 01/29/17 09:50 Dose: 1 tab Nicotine (Nicoderm Cq) 1 patch TD DAILY [facility] Last Admin: 01/29/17 09:50 Dose: 1 patch Ondansetron HCl (Zofran Oral Soln) 2 mg PO Q8H PRN PRN Reason: Nausea/Vomiting Last Admin: 01/28/17 17:27 Dose: 2 mg Prazosin HCl (Minipress) 2 mg PO HS [facility] Thiamine HCl (Vitamin B1 Tab) 100 mg PO DAILY [facility] Last Admin: 01/29/17 09:50 Dose: 100 mg Trazodone HCl (Desyrel) 100 mg PO HS [facility] Zolpidem Tartrate (Ambien) 5 mg PO HS PRN PRN Reason: Insomnia - Labs Labs: 01/29/17 08:34 01/29/17 08:34 PT 12.2 SECONDS (9.7-12.2) 01/25/17 00:57 INR 1.1 01/25/17 00:57 APTT 28 SECONDS (21-34) 01/25/17 00:57 - Constitutional Appears: No Acute Distress - Head Exam Head Exam: ATRAUMATIC, NORMOCEPHALIC - Eye Exam Eye Exam: EOMI, Normal appearance - ENT Exam ENT Exam: Mucous Membranes Moist - Respiratory Exam Respiratory Exam: NORMAL BREATHING PATTERN. absent: Accessory Muscle Use, Respiratory Distress - GI/Abdominal Exam GI & Abdominal Exam: Soft. absent: Distended, Tenderness - Neurological Exam Neurological Exam: Alert, Awake, Normal Gait, Oriented x3 - Psychiatric Exam Psychiatric exam: Anxious, Depressed - Skin Skin Exam: Dry, Normal Color, Warm Assessment and Plan - Assessment and Plan (Free Text) Plan: Patient has been experiencing HTN during her stay. Started on 10 mg of Lisinopril once daily. will continue to monitor vitals. Suicide attempt by drug ingestion Assessment and Plan: 2nd suicide attempt in 1 month, psychiatry recommendations. 01/28: Pt voluntarily transferred to [facility]. She is unable to leave AMA/be discharged without psych approval. 01/25: Hopefully when extubated can be evaluated by psychiatry 01/24: She was recently here with similar episode. UDS showing opiates, barbituates. Also elevated alcohol and tylenol levels. Psychiatry Consult (Dr. Montenegro)- F/U recommendations Toxicology: * Acetaminophen: 68 * Alcohol level: 89 Patient administered Zofran 4mg IV, Narcan 4mg IV, Acetylcysteine Continue IV fluids Patient will benefit from counseling services EKG- Sinus Tach Head CT- negative for intracranial bleed Respiratory Depression Assessment and Plan: 01/26: Extubated. Respirations stable. Speaking in full sentences 01/25: Today awake and able to respond to commands. Currently intubated at the moment. The ABG looks better today. 01/24: Patient was lethergic on admission. Currently intubated. The UDS and labwork shows + barbituates, opiates, alcohol as well as tylenol elevations. She had earlier ABGs with anion gap metabolic acidosis History of Drug overdose Assessment and Plan: Management per Psych Patient will benefit from counseling services Tylenol overdose and metabolic acidosis. Assessment and Plan: 01/29: AST improved to 45 from 84. ALT worsened to 71 from 66. 01/26: Again the LFTs are stable. Acidosis resolved 01/25: LFTs and INRs are stable. The acetylcystein was done earlier in the morning. 01/24 Continue with IVF, she has already received acetylcystien and from what I understand this will be continued throughout the day Monitor renal and liver functionality Patient will benefit from counseling services Management per Psych Prophylactic measure Assessment and Plan: SCDs PPI 40 mg IV daily Seizure precautions, Fall risk precautions Discussed with Dr. Héctor Steen Radha PGY1 <Nelson Anaya - Last Filed: 01/29/17 18:15> Objective - Vital Signs/Intake and Output Vital Signs (last 24 hours): Temp Pulse Resp BP Pulse Ox 98.9 F 110 H 15 137/84 95 01/28/17 04:30 01/28/17 15:32 01/27/17 14:00 01/29/17 17:14 01/27/17 04:00 - Medications Medications: Current Medications Chlordiazepoxide (Librium) 25 mg PO BID [facility] PRN Reason: Taper Stop: 01/31/17 17:59 Last Admin: 01/29/17 17:25 Dose: 25 mg Enoxaparin Sodium (Lovenox) 40 mg SC DAILY [facility] Last Admin: 01/29/17 14:39 Dose: Not Given Escitalopram Oxalate (Lexapro) 10 mg PO DAILY [facility] Last Admin: 01/29/17 09:51 Dose: Not Given Famotidine (Pepcid) 20 mg PO DAILY [facility] Last Admin: 01/29/17 09:50 Dose: 20 mg Folic Acid (Folic Acid) 1 mg PO DAILY [facility] Last Admin: 01/29/17 09:50 Dose: 1 mg Gabapentin (Neurontin) 300 mg PO BID [facility] Last Admin: 01/29/17 17:25 Dose: 300 mg Hydroxyzine HCl (Atarax) 50 mg PO Q6H PRN PRN Reason: Anxiety Last Admin: 01/28/17 23:58 Dose: 50 mg Ibuprofen (Motrin Tab) 600 mg PO BID PRN PRN Reason: Headache Last Admin: 01/29/17 11:16 Dose: 600 mg Lisinopril (Zestril) 10 mg PO DAILY [facility] Multivitamins (Hexavitamin) 1 tab PO DAILY [facility] Last Admin: 01/29/17 09:50 Dose: 1 tab Nicotine (Nicoderm Cq) 1 patch TD DAILY [facility] Last Admin: 01/29/17 09:50 Dose: 1 patch Ondansetron HCl (Zofran Oral Soln) 2 mg PO Q8H PRN PRN Reason: Nausea/Vomiting Last Admin: 01/29/17 16:46 Dose: 2 mg Prazosin HCl (Minipress) 2 mg PO HS [facility] Thiamine HCl (Vitamin B1 Tab) 100 mg PO DAILY [facility] Last Admin: 01/29/17 09:50 Dose: 100 mg Trazodone HCl (Desyrel) 100 mg PO HS [facility] Zolpidem Tartrate (Ambien) 5 mg PO HS PRN PRN Reason: Insomnia - Labs Labs: 01/29/17 08:34 01/29/17 08:34 PT 12.2 SECONDS (9.7-12.2) 01/25/17 00:57 INR 1.1 01/25/17 00:57 APTT 28 SECONDS (21-34) 01/25/17 00:57 Attending/Attestation - Attestation I have personally seen and examined this patient.: Yes I have fully participated in the care of the patient.: Yes I have reviewed all pertinent clinical information, including history, physical exam and plan: Yes Notes (Text): 01/29/17 18:15 Patient was seen and examined at bedside with the resident Patient appears comfortable however she complains of headache because of migraine We will continue to hold Fioricet because of for Tylenol toxicity Management for mood disorder as per the psychiatry team. I discussed the plan of care with the resident and agree with the history and physical and assessment/plan documented by the resident.
[2017-01-29] MEDS: Enoxaparin 40 mg Syringe SC SCH (14:39)
[2017-01-29] MEDS: Ondansetron HCl 4 mg/5 ml Oral Soln PO PRN (16:46)
[2017-01-30] MEDS: Ondansetron HCl 4 mg/5 ml Oral Soln PO PRN (07:54)
[2017-01-30] MEDS: Enoxaparin 40 mg Syringe SC SCH (10:19)
[2017-01-30] MEDS: Multiple Vitamins Tab PO SCH (10:23)
--- NOTE | 2017-01-30 14:02 | PCM.PYCHPN ---
Psychiatric Progress Note - Psychiatric Progress Note Patient seen today, length of contact: 15 minutes Patient Chief Complaint: I am feeling anxious.' Problems Identified/Issues Discussed: Patient seen and evaluated, chart reviewed and discussed with the nurse. Patient reports improvement in her mood and irritability. She also reports improvement in the sleep. She still reports anxiety but denies any SI/HI. She is taking medication and denies any side effects. She needs more time for stabilization. Supportive therapy and psychoeducation were given. Medication Change: No Medical Record Reviewed: Yes Mental Status Examination - Cognitive Function Orientation: Person, Place, Situation, Time Memory: Intact Attention: WNL Concentration: WNL Association: WNL Fund of Knowledge: Poor - Mood Mood: Depressed, Anxious - Affect Affect: Constricted, Depressed - Speech Speech: Appropriate - Formal Thought Process Formal Thought Process: No Impairment - Suicidal Ideation Suicidal Ideation: No - Homicidal Ideation Homicidal Ideation: No Goal/Treatment Plan - Goal/Treatment Plan Need for Continued Stay: Remain at risks for inpatient hospitalization, Severe depression anxiety, Discharge may exacerbated symptoms Progress Toward Problem(s) and Goals/Treatment Plan: Continue medications. Librium prn Lexapro 10 mg po daily Neur[facility]in 300 mg PO BID Support and psychoeducation daily Attend groups and activities daily After care planning - Smoking Cessation Smoking Cessation Initiated: No
--- NOTE | 2017-01-30 17:26 | CP.PCM.PN ---
<Stephan Fernandez - Last Filed: 01/30/17 20:06> Subjective - Date & Time of Evaluation Date of Evaluation: 01/30/17 Time of Evaluation: 07:30 - Subjective Subjective: PGY-[address] Carol Anaya Patient seen and examined. Patient reports improved sleep from the previous night. Patient complaining of frontal headaches also localized behind the eyes and requesting medication for it. Patient is also complaining of palpitations and diaphoresis. Denies subjective fever, chills, dizziness, chest pain, SOB, abdominal pain, dysuria. Patient also complaining of throat soreness that she attributes from recent intubation. Objective - Vital Signs/Intake and Output Vital Signs (last 24 hours): Temp Pulse Resp BP Pulse Ox 98 F 128 H 20 112/77 95 01/30/17 07:30 01/30/17 15:36 01/30/17 07:30 01/30/17 15:36 01/27/17 04:00 - Medications Medications: Current Medications Chlordiazepoxide (Librium) 25 mg PO BID [facility] PRN Reason: Taper Stop: 01/31/17 17:59 Last Admin: 01/30/17 10:23 Dose: 25 mg Chlordiazepoxide (Librium) 25 mg PO ONCE ONE Stop: 01/30/17 18:01 Chlordiazepoxide (Librium) 25 mg PO ONCE ONE Stop: 01/31/17 12:01 Enoxaparin Sodium (Lovenox) 40 mg SC DAILY [facility] Last Admin: 01/30/17 10:19 Dose: Not Given Escitalopram Oxalate (Lexapro) 10 mg PO DAILY [facility] Last Admin: 01/30/17 10:19 Dose: Not Given Famotidine (Pepcid) 20 mg PO DAILY [facility] Last Admin: 01/30/17 10:24 Dose: 20 mg Folic Acid (Folic Acid) 1 mg PO DAILY [facility] Last Admin: 01/30/17 10:24 Dose: 1 mg Gabapentin (Neurontin) 300 mg PO BID [facility] Last Admin: 01/30/17 10:24 Dose: 300 mg Hydroxyzine HCl (Atarax) 50 mg PO Q6H PRN PRN Reason: Anxiety Last Admin: 01/30/17 13:14 Dose: 50 mg Ibuprofen (Motrin Tab) 600 mg PO BID PRN PRN Reason: Headache Last Admin: 01/30/17 06:18 Dose: 600 mg Lisinopril (Zestril) 10 mg PO DAILY [facility] Last Admin: 01/30/17 10:24 Dose: 10 mg Multivitamins (Hexavitamin) 1 tab PO DAILY [facility] Last Admin: 01/30/17 10:23 Dose: 1 tab Nicotine (Nicoderm Cq) 1 patch TD DAILY [facility] Last Admin: 01/30/17 10:38 Dose: 1 patch Ondansetron HCl (Zofran Oral Soln) 2 mg PO Q8H PRN PRN Reason: Nausea/Vomiting Last Admin: 01/30/17 07:54 Dose: 2 mg Prazosin HCl (Minipress) 2 mg PO HS [facility] Last Admin: 01/29/17 21:10 Dose: 2 mg Sumatriptan Succinate (Imitrex Tab) 50 mg PO DAILY [facility] Last Admin: 01/30/17 16:08 Dose: 50 mg Thiamine HCl (Vitamin B1 Tab) 100 mg PO DAILY [facility] Last Admin: 01/30/17 10:24 Dose: 100 mg Trazodone HCl (Desyrel) 100 mg PO HS [facility] Last Admin: 01/29/17 21:10 Dose: 100 mg Zolpidem Tartrate (Ambien) 5 mg PO HS PRN PRN Reason: Insomnia Last Admin: 01/29/17 21:10 Dose: 5 mg - Labs Labs: 01/29/17 08:34 01/29/17 08:34 PT 11.6 SECONDS (9.7-12.2) 01/30/17 07:45 INR 1.0 01/30/17 07:45 APTT 28 SECONDS (21-34) 01/25/17 00:57 - Constitutional Appears: No Acute Distress - Head Exam Head Exam: ATRAUMATIC, NORMAL INSPECTION, NORMOCEPHALIC - Eye Exam Eye Exam: EOMI, PERRL Pupil Exam: Mydriatic - ENT Exam ENT Exam: Mucous Membranes Moist - Respiratory Exam Respiratory Exam: Clear to Ausculation Bilateral. absent: Rales, Rhonchi, Wheezes - Cardiovascular Exam Cardiovascular Exam: Tachycardia, REGULAR RHYTHM, +S1, +S2 - GI/Abdominal Exam GI & Abdominal Exam: Soft, Normal Bowel Sounds. absent: Tenderness - Neurological Exam Neurological Exam: Alert, Awake, Oriented x3 - Skin Skin Exam: Dry, Intact, Normal Color, Warm Assessment and Plan - Assessment and Plan (Free Text) Plan: Patient has been experiencing HTN during her stay. Started on 10 mg of Lisinopril once daily. will continue to monitor vitals. Suicide attempt by drug ingestion Assessment and Plan: 2nd suicide attempt in 1 month, psychiatry recommendations. 01/28: Pt voluntarily transferred to [facility]. She is unable to leave AMA/be discharged without psych approval. 01/25: Hopefully when extubated can be evaluated by psychiatry 01/24: She was recently here with similar episode. UDS showing opiates, barbituates. Also elevated alcohol and tylenol levels. Psychiatry Consult (Dr. Montenegro)- F/U recommendations Toxicology: * Acetaminophen: 68 * Alcohol level: 89 Patient administered Zofran 4mg IV, Narcan 4mg IV, Acetylcysteine Continue IV fluids Patient will benefit from counseling services EKG- Sinus Tach Head CT- negative for intracranial bleed Respiratory Depression Assessment and Plan: 01/26: Extubated. Respirations stable. Speaking in full sentences 01/25: Today awake and able to respond to commands. Currently intubated at the moment. The ABG looks better today. 01/24: Patient was lethergic on admission. Currently intubated. The UDS and labwork shows + barbituates, opiates, alcohol as well as tylenol elevations. She had earlier ABGs with anion gap metabolic acidosis History of Drug overdose Assessment and Plan: Management per Psych Patient will benefit from counseling services Tylenol overdose and metabolic acidosis. Assessment and Plan: 01/29: AST improved to 45 from 84. ALT worsened to 71 from 66. 01/26: Again the LFTs are stable. Acidosis resolved 01/25: LFTs and INRs are stable. The acetylcystein was done earlier in the morning. 01/24 Continue with IVF, she has already received acetylcystien and from what I understand this will be continued throughout the day Monitor renal and liver functionality Patient will benefit from counseling services Management per Psych Prophylactic measure Assessment and Plan: SCDs PPI 40 mg IV daily Seizure precautions, Fall risk precautions We will continue to monitor her blood pressure for now. If her blood pressure trends down, we will reduce the dose of her lisinopril. We will check the labs for tomorrow to monitor her LFTs. Case DW Dr. Carol Fernandez PGY1 <Nelson Anaya - Last Filed: 01/31/17 16:36> Objective - Vital Signs/Intake and Output Vital Signs (last 24 hours): Temp Pulse Resp BP Pulse Ox 97.4 F L 96 H 18 135/83 95 01/31/17 07:18 01/31/17 15:36 01/31/17 07:18 01/31/17 15:36 01/27/17 04:00 - Medications Medications: Current Medications Chlordiazepoxide (Librium) 25 mg PO DAILY [facility] PRN Reason: Taper Stop: 01/31/17 17:59 Last Admin: 01/31/17 10:50 Dose: 25 mg Escitalopram Oxalate (Lexapro) 10 mg PO DAILY [facility] Last Admin: 01/31/17 10:39 Dose: Not Given Famotidine (Pepcid) 20 mg PO DAILY [facility] Last Admin: 01/31/17 10:46 Dose: 20 mg Folic Acid (Folic Acid) 1 mg PO DAILY [facility] Last Admin: 01/31/17 10:46 Dose: 1 mg Gabapentin (Neurontin) 300 mg PO BID [facility] Last Admin: 01/31/17 10:45 Dose: 300 mg Hydroxyzine HCl (Atarax) 50 mg PO Q6H PRN PRN Reason: Anxiety Last Admin: 01/31/17 05:50 Dose: 50 mg Ibuprofen (Motrin Tab) 600 mg PO BID PRN PRN Reason: Headache Last Admin: 01/30/17 21:39 Dose: 600 mg Lisinopril (Zestril) 5 mg PO DAILY [facility] Multivitamins (Hexavitamin) 1 tab PO DAILY [facility] Last Admin: 01/31/17 10:45 Dose: 1 tab Nicotine (Nicoderm Cq) 1 patch TD DAILY [facility] Last Admin: 01/31/17 10:45 Dose: 1 patch Ondansetron HCl (Zofran Oral Soln) 2 mg PO Q8H PRN PRN Reason: Nausea/Vomiting Last Admin: 01/31/17 04:38 Dose: 2 mg Prazosin HCl (Minipress) 2 mg PO HS [facility] Last Admin: 01/30/17 21:40 Dose: 2 mg Sumatriptan Succinate (Imitrex Tab) 50 mg PO DAILY [facility] Last Admin: 01/31/17 10:45 Dose: 50 mg Thiamine HCl (Vitamin B1 Tab) 100 mg PO DAILY [facility] Last Admin: 01/31/17 10:45 Dose: 100 mg Trazodone HCl (Desyrel) 100 mg PO HS [facility] Last Admin: 01/30/17 21:39 Dose: 100 mg Zolpidem Tartrate (Ambien) 5 mg PO HS PRN PRN Reason: Insomnia Last Admin: 01/30/17 21:40 Dose: 5 mg - Labs Labs: 01/31/17 11:58 01/31/17 08:14 PT 11.6 SECONDS (9.7-12.2) 01/30/17 07:45 INR 1.0 01/30/17 07:45 APTT 28 SECONDS (21-34) 01/25/17 00:57 Attending/Attestation - Attestation I have personally seen and examined this patient.: Yes I have fully participated in the care of the patient.: Yes I have reviewed all pertinent clinical information, including history, physical exam and plan: Yes Notes (Text): 01/31/17 16:36 Patient blood pressure is better controlled LFTs are trending down but we will check levels again in the morning I discussed the plan of care with the resident and agree with the assessment and documented above.
[2017-01-31] MEDS: Ondansetron HCl 4 mg/5 ml Oral Soln PO PRN (04:38)
[2017-01-31 08:37] LABS: CHLORIDE 102 mmol/L (98-107)
[2017-01-31 08:38] LABS: POTASSIUM 3.8 mmol/L (3.6-5.2); SODIUM 140 mmol/L (132-148)
[2017-01-31 08:40] LABS: BILIRUBIN,TOTAL 0.5 mg/dL (0.2-1.3); CARBON DIOXIDE 24 mmol/L (22-30); GFR AFRICAN-AMERICAN > 60
[2017-01-31 08:41] LABS: ALB/GLOB RATIO 1.2 (1.0-2.1); ALKALINE PHOSPHATASE 68 U/L (38-126); ALT/SGPT 49 U/L (9-52); AST/SGOT 22 U/L (14-36); BLOOD UREA NITROGEN 7 mg/dL (7-17); CALCIUM 9.5 mg/dl (8.6-10.4); GLUCOSE,RANDOM 72 mg/dL (65-105); TOTAL PROTEIN 7.3 g/dL (6.3-8.3)
[2017-01-31] MEDS: Enoxaparin 40 mg Syringe SC SCH (10:39)
[2017-01-31] MEDS: Multiple Vitamins Tab PO SCH (10:45)
[2017-01-31 12:05] LABS: BASO # 0.1 K/uL (0.0-0.2); BASO % 1.1 % (0.0-2.0); EOS # 0.2 K/uL (0.0-0.7); EOS % 2.2 % (0.0-4.0); HEMATOCRIT 39.1 % (34.0-47.0); LYMPH # 1.9 K/uL (1.0-4.3); LYMPH % 19.5 % (20.0-40.0); MEAN CELL VOLUME 91.3 fL (81.0-99.0); MEAN CORPUSCULAR HEMOGLOBIN 30.5 pg (27.0-31.0); MEAN CORPUSCULAR HGB CONC 33.4 g/dL (33.0-37.0); MEAN PLATELET VOLUME 8.6 fL (7.2-11.7); MONO # 0.8 K/uL (0.0-0.8); MONO % 7.9 % (0.0-10.0); NRBC % 0.1 % (0.0-2.0); RED CELL DISTRIBUTION WIDTH 13.8 % (11.5-14.5); WHITE BLOOD COUNT 9.5 K/uL (4.8-10.8)
--- NOTE | 2017-01-31 12:47 | PCM.PYCHPN ---
Psychiatric Progress Note - Psychiatric Progress Note Patient seen today, length of contact: 15 minutes Patient Chief Complaint: "I am anxious" Problems Identified/Issues Discussed: The pt is seen, chart reviewed, case discussed with staff. Pt says she is still anxious. Pt would like to be discharged on Saturday evening so she can take a flight back to [place] on Saturday. The pt is compliant with medications and reports no side-effects. Symptoms are improving but needs more time to stabilize. After care discussed, support and psychoeducation given. Medical Problems: Migraine headaches Elevated LFTs Diagnostic Results: Reviewed DSM 5 Symptoms Update: Improving with treatment Medication Change: No Medical Record Reviewed: Yes Consults ordered or reviewed: Reviewed Mental Status Examination - Cognitive Function Orientation: Person, Place, Situation, Time Memory: Intact Attention: WNL Concentration: WNL Association: WNL Fund of Knowledge: [facility] Decription of patient's judgement and insights: Fair - Mood Mood: Anxious - Affect Affect: Depressed - Speech Speech: Appropriate - Formal Thought Process Formal Thought Process: No Impairment Psychotic Thoughts and Behaviors: None - Suicidal Ideation Suicidal Ideation: No - Homicidal Ideation Homicidal Ideation: No Goal/Treatment Plan - Goal/Treatment Plan Need for Continued Stay: Remain at risks for inpatient hospitalization, Discharge may exacerbated symptoms, Severe functional impairment Progress Toward Problem(s) and Goals/Treatment Plan: Continue medications Support and psychoeducation daily Attend groups and activities daily After care planning by ANDRAE Estimated Date of D/C: 02/03/17 - Smoking Cessation Smoking Cessation Initiated: Yes
--- NOTE | 2017-01-31 14:35 | CP.PCM.PN ---
<Stephan Fernandez - Last Filed: 01/31/17 14:35> Subjective - Date & Time of Evaluation Date of Evaluation: 01/31/17 Time of Evaluation: 07:30 - Subjective Subjective: PGY-[address] Carol Anaya Patient seen and examined. Patient ongoing frontal headaches that are also located behind her eyes. Patient reports improvement in palpitations and diaphoresis. Denies subjective fever, chills, dizziness, chest pain, SOB, abdominal pain, dysuria. Objective - Vital Signs/Intake and Output Vital Signs (last 24 hours): Temp Pulse Resp BP Pulse Ox 97.4 F L 121 H 18 102/70 95 01/31/17 07:18 01/31/17 07:18 01/31/17 07:18 01/31/17 07:18 01/27/17 04:00 - Medications Medications: Current Medications Chlordiazepoxide (Librium) 25 mg PO DAILY [facility] PRN Reason: Taper Stop: 01/31/17 17:59 Last Admin: 01/30/17 10:23 Dose: 25 mg Escitalopram Oxalate (Lexapro) 10 mg PO DAILY [facility] Last Admin: 01/31/17 10:39 Dose: Not Given Famotidine (Pepcid) 20 mg PO DAILY [facility] Last Admin: 01/31/17 10:46 Dose: 20 mg Folic Acid (Folic Acid) 1 mg PO DAILY [facility] Last Admin: 01/31/17 10:46 Dose: 1 mg Gabapentin (Neurontin) 300 mg PO BID [facility] Last Admin: 01/31/17 10:45 Dose: 300 mg Hydroxyzine HCl (Atarax) 50 mg PO Q6H PRN PRN Reason: Anxiety Last Admin: 01/31/17 05:50 Dose: 50 mg Ibuprofen (Motrin Tab) 600 mg PO BID PRN PRN Reason: Headache Last Admin: 01/30/17 21:39 Dose: 600 mg Lisinopril (Zestril) 5 mg PO DAILY [facility] Multivitamins (Hexavitamin) 1 tab PO DAILY [facility] Last Admin: 01/31/17 10:45 Dose: 1 tab Nicotine (Nicoderm Cq) 1 patch TD DAILY [facility] Last Admin: 01/31/17 10:45 Dose: 1 patch Ondansetron HCl (Zofran Oral Soln) 2 mg PO Q8H PRN PRN Reason: Nausea/Vomiting Last Admin: 01/31/17 04:38 Dose: 2 mg Prazosin HCl (Minipress) 2 mg PO HS [facility] Last Admin: 01/30/17 21:40 Dose: 2 mg Sumatriptan Succinate (Imitrex Tab) 50 mg PO DAILY [facility] Last Admin: 01/31/17 10:45 Dose: 50 mg Thiamine HCl (Vitamin B1 Tab) 100 mg PO DAILY [facility] Last Admin: 01/31/17 10:45 Dose: 100 mg Trazodone HCl (Desyrel) 100 mg PO HS [facility] Last Admin: 01/30/17 21:39 Dose: 100 mg Zolpidem Tartrate (Ambien) 5 mg PO HS PRN PRN Reason: Insomnia Last Admin: 01/30/17 21:40 Dose: 5 mg - Labs Labs: 01/31/17 11:58 01/31/17 08:14 PT 11.6 SECONDS (9.7-12.2) 01/30/17 07:45 INR 1.0 01/30/17 07:45 APTT 28 SECONDS (21-34) 01/25/17 00:57 - Constitutional Appears: No Acute Distress - Head Exam Head Exam: ATRAUMATIC, NORMAL INSPECTION, NORMOCEPHALIC - Eye Exam Eye Exam: EOMI, PERRL Pupil Exam: Mydriatic - ENT Exam ENT Exam: Mucous Membranes Moist - Respiratory Exam Respiratory Exam: Clear to Ausculation Bilateral. absent: Rales, Rhonchi, Wheezes - Cardiovascular Exam Cardiovascular Exam: Tachycardia, REGULAR RHYTHM, +S1, +S2 - GI/Abdominal Exam GI & Abdominal Exam: Soft, Normal Bowel Sounds. absent: Tenderness - Neurological Exam Neurological Exam: Alert, Awake, Oriented x3 - Skin Skin Exam: Dry, Intact, Warm Assessment and Plan - Assessment and Plan (Free Text) Plan: Suicide attempt by drug ingestion Assessment and Plan: 2nd suicide attempt in 1 month, psychiatry recommendations. 01/28: Pt voluntarily transferred to [facility]. She is unable to leave AMA/be discharged without psych approval. 01/25: Hopefully when extubated can be evaluated by psychiatry 01/24: She was recently here with similar episode. UDS showing opiates, barbituates. Also elevated alcohol and tylenol levels. Psychiatry Consult (Dr. Montenegro)- F/U recommendations Toxicology: * Acetaminophen: 68 * Alcohol level: 89 Patient administered Zofran 4mg IV, Narcan 4mg IV, Acetylcysteine Continue IV fluids Patient will benefit from counseling services EKG- Sinus Tach Head CT- negative for intracranial bleed Respiratory Depression Assessment and Plan: 01/26: Extubated. Respirations stable. Speaking in full sentences 01/25: Today awake and able to respond to commands. Currently intubated at the moment. The ABG looks better today. 01/24: Patient was lethergic on admission. Currently intubated. The UDS and labwork shows + barbituates, opiates, alcohol as well as tylenol elevations. She had earlier ABGs with anion gap metabolic acidosis History of Drug overdose Assessment and Plan: Management per Psych Patient will benefit from counseling services Tylenol overdose and metabolic acidosis. Assessment and Plan: 01/29: AST improved to 45 from 84. ALT worsened to 71 from 66. 01/26: Again the LFTs are stable. Acidosis resolved 01/25: LFTs and INRs are stable. The acetylcystein was done earlier in the morning. 01/24 Continue with IVF, she has already received acetylcystien and from what I understand this will be continued throughout the day Monitor renal and liver functionality Patient will benefit from counseling services Management per Psych Prophylactic measure Assessment and Plan: SCDs PPI 40 mg IV daily Seizure precautions, Fall risk precautions LFTs continue to downtrend. Blood pressure has been stabilized. We will decrease the Lisinopril to 5 mg PO daily in order to normalize her blood pressure. Continue present psychiatric management. Medicine Team will sign off at this time. Please re-consult if necessary. Case DW Dr. Carol Fernandez PGY1 <Nelson Anaya - Last Filed: 01/31/17 17:51> Objective - Vital Signs/Intake and Output Vital Signs (last 24 hours): Temp Pulse Resp BP Pulse Ox 97.4 F L 96 H 18 135/83 95 01/31/17 07:18 01/31/17 15:36 01/31/17 07:18 01/31/17 15:36 01/27/17 04:00 - Medications Medications: Current Medications Chlordiazepoxide (Librium) 25 mg PO DAILY [facility] PRN Reason: Taper Stop: 01/31/17 17:59 Last Admin: 01/31/17 10:50 Dose: 25 mg Escitalopram Oxalate (Lexapro) 10 mg PO DAILY [facility] Last Admin: 01/31/17 10:39 Dose: Not Given Famotidine (Pepcid) 20 mg PO DAILY [facility] Last Admin: 01/31/17 10:46 Dose: 20 mg Folic Acid (Folic Acid) 1 mg PO DAILY [facility] Last Admin: 01/31/17 10:46 Dose: 1 mg Gabapentin (Neurontin) 300 mg PO BID [facility] Last Admin: 01/31/17 10:45 Dose: 300 mg Hydroxyzine HCl (Atarax) 50 mg PO Q6H PRN PRN Reason: Anxiety Last Admin: 01/31/17 05:50 Dose: 50 mg Ibuprofen (Motrin Tab) 600 mg PO BID PRN PRN Reason: Headache Last Admin: 01/30/17 21:39 Dose: 600 mg Lisinopril (Zestril) 5 mg PO DAILY [facility] Multivitamins (Hexavitamin) 1 tab PO DAILY [facility] Last Admin: 01/31/17 10:45 Dose: 1 tab Nicotine (Nicoderm Cq) 1 patch TD DAILY [facility] Last Admin: 01/31/17 10:45 Dose: 1 patch Ondansetron HCl (Zofran Oral Soln) 2 mg PO Q8H PRN PRN Reason: Nausea/Vomiting Last Admin: 01/31/17 04:38 Dose: 2 mg Prazosin HCl (Minipress) 2 mg PO HS [facility] Last Admin: 01/30/17 21:40 Dose: 2 mg Sumatriptan Succinate (Imitrex Tab) 50 mg PO DAILY [facility] Last Admin: 01/31/17 10:45 Dose: 50 mg Thiamine HCl (Vitamin B1 Tab) 100 mg PO DAILY [facility] Last Admin: 01/31/17 10:45 Dose: 100 mg Trazodone HCl (Desyrel) 100 mg PO HS [facility] Last Admin: 01/30/17 21:39 Dose: 100 mg Vitamin A (Vitamin A & D Oint Ud Foilpak) 0.5 ea TOP Q4 PRN PRN Reason: Dry lips Zolpidem Tartrate (Ambien) 5 mg PO HS PRN PRN Reason: Insomnia Last Admin: 01/30/17 21:40 Dose: 5 mg - Labs Labs: 01/31/17 11:58 01/31/17 08:14 PT 11.6 SECONDS (9.7-12.2) 01/30/17 07:45 INR 1.0 01/30/17 07:45 APTT 28 SECONDS (21-34) 01/25/17 00:57 Attending/Attestation - Attestation I have personally seen and examined this patient.: Yes I have fully participated in the care of the patient.: Yes I have reviewed all pertinent clinical information, including history, physical exam and plan: Yes Notes (Text): 01/31/17 17:50 Patient was seen and examined by the district medical examiner. Discussed the plan of care with me. Patient has no new complaints. Transaminitis has resolved. Blood pressure is better controlled Medicine he was sent. Reconsult as needed.
[2017-01-31] MEDS ORDERED: Vitamins A & D Oint UD Foilpak TOP PRN ×2 (16:54→20:57)
[2017-01-31] MEDS ORDERED: Vitamins A & D Oint UD Foilpak TOP SCH (18:45)
[2017-02-01] MEDS: Ondansetron HCl 4 mg/5 ml Oral Soln PO PRN ×2 (05:11→16:18)
[2017-02-01] MEDS: Multiple Vitamins Tab PO SCH (10:04)
--- NOTE | 2017-02-01 15:57 | PCM.PYCHPN ---
Psychiatric Progress Note - Psychiatric Progress Note Patient seen today, length of contact: 15 minutes Patient Chief Complaint: "I am feeling better. Can I go home today. Problems Identified/Issues Discussed: Patient seen. Chart reviewed. Case discussed with the staff. Issues related to illness and treatment were discussed with the patient. Reported compliant with treatment with no adverse affects. Tolerating treatment very well. Patient reported feeling better and requesting for discharge today. Education provided about patient's treatment. Patient understood and agreed to stay. Medical team is also on the case. At the time of evaluation, patient was awake alert oriented 3, had no delusions, no auditory or visual hallucinations, no suicidal ideations or homicidal ideations. Medical Problems: Migraine headaches Elevated LFTs Diagnostic Results: Reviewed DSM 5 Symptoms Update: Improving with treatment Medication Change: No Medical Record Reviewed: Yes Consults ordered or reviewed: Reviewed Mental Status Examination - Cognitive Function Orientation: Person, Place, Situation, Time Memory: Intact Attention: WNL Concentration: WNL Association: WNL Fund of Knowledge: [facility] Decription of patient's judgement and insights: Fair - Mood Mood: Neutral - Affect Affect: Other (Appropriate) - Speech Speech: Appropriate - Formal Thought Process Formal Thought Process: No Impairment Psychotic Thoughts and Behaviors: None - Suicidal Ideation Suicidal Ideation: No - Homicidal Ideation Homicidal Ideation: No Goal/Treatment Plan - Goal/Treatment Plan Need for Continued Stay: Remain at risks for inpatient hospitalization, Discharge may exacerbated symptoms, Severe functional impairment Progress Toward Problem(s) and Goals/Treatment Plan: Continue medications Support and psychoeducation daily Attend groups and activities daily After care planning by ANDRAE Estimated Date of D/C: 02/03/17 - Smoking Cessation Smoking Cessation Initiated: Yes
[2017-02-02] MEDS: Multiple Vitamins Tab PO SCH (09:52)
[2017-02-02 10:25] VITALS: BP 118/68; PULSE 78; RESP 18; TEMP 98.7; O2SAT 99
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
--- NOTE | 2017-02-05 20:07 | CARD ---
APPROVED REPORT EKG Measurement Heart [id number] <Conclusion> Normal sinus rhythm Normal ECG
--- NOTE | 2017-02-05 20:30 | CARD ---
APPROVED REPORT EKG Measurement Heart [id number] ID [id number] <Conclusion> Sinus tachycardia Otherwise normal ECG
== END 2017-02-02 12:15 | disposition home or self-care (01) | DRG 917 ==
LOC: C.ER 01:10 → C.9E 02:23 → C.9I 03:04 → C.5E 01-28 13:07
PROVIDERS: ADMIT Psychiatry & Neurology Psychiatry; ATTEND Family Medicine
PROC: 5A1945Z Respiratory Ventilation, 24-96 Consecutive Hours (ICD-10-PCS; principal; 2017-01-24)
PROC: 0BH17EZ Insertion of Endotracheal Airway into Trachea, Via Natural or Artificial Opening (ICD-10-PCS; 2017-01-24)
PROC: GZ3ZZZZ Medication Management (ICD-10-PCS; 2017-01-24)
PROC: GZ56ZZZ Individual Psychotherapy, Supportive (ICD-10-PCS; 2017-01-24)
PROC: HZ59ZZZ Individual Psychotherapy for Substance Abuse Treatment, Supportive (ICD-10-PCS; 2017-01-24)
DX: T40.2X2A Poisoning by other opioids, intentional self-harm, initial encounter (principal); J96.90 Respiratory failure, unspecified, unspecified whether with hypoxia or hypercapnia; F33.2 Major depressive disorder, recurrent severe without psychotic features; E87.2 Acidosis; F43.12 Post-traumatic stress disorder, chronic; F10.229 Alcohol dependence with intoxication, unspecified; E87.6 Hypokalemia; I10 Essential (primary) hypertension; F41.1 Generalized anxiety disorder; F60.3 Borderline personality disorder; R00.0 Tachycardia, unspecified; F31.9 Bipolar disorder, unspecified; G43.909 Migraine, unspecified, not intractable, without status migrainosus; Y90.4 Blood alcohol level of 80-99 mg/100 ml; Z91.5 Personal history of self-harm; Y92.009 Unspecified place in unspecified non-institutional (private) residence as the place of occurrence of the external cause; Z88.0 Allergy status to penicillin; Z88.1 Allergy status to other antibiotic agents

== ENCOUNTER 2017-02-23 18:06 | Inpatient (IN) | payer MEDICARE, OTHER ==
[2017-02-23 18:07] VITALS: BMI 32.3
[2017-02-23] MEDS ORDERED: Sodium Chloride 0.9% 1,000 ML IV ONE (18:48)
[2017-02-23] MEDS ORDERED: Sodium Chloride 0.9% 1,000 ML ONE (18:59)
[2017-02-23 19:03] LABS: BASO # 0.1 K/uL (0.0-0.2); BASO % 0.9 % (0.0-2.0); EOS # 0.1 K/uL (0.0-0.7); EOS % 0.9 % (0.0-4.0); HEMATOCRIT 40.5 % (34.0-47.0); LYMPH # 2.1 K/uL (1.0-4.3); LYMPH % 15.9 % (20.0-40.0); MEAN CELL VOLUME 88.9 fL (81.0-99.0); MEAN CORPUSCULAR HEMOGLOBIN 30.2 pg (27.0-31.0); MEAN CORPUSCULAR HGB CONC 33.9 g/dL (33.0-37.0); MEAN PLATELET VOLUME 8.5 fL (7.2-11.7); MONO # 0.8 K/uL (0.0-0.8); MONO % 6.2 % (0.0-10.0); RED CELL DISTRIBUTION WIDTH 13.3 % (11.5-14.5); WHITE BLOOD COUNT 13.1 K/uL (4.8-10.8)
[2017-02-23 19:16] LABS: ALB/GLOB RATIO 1.4 (1.0-2.1); ALKALINE PHOSPHATASE 57 U/L (38-126); ALT/SGPT 31 U/L (9-52); AST/SGOT 19 U/L (14-36); BILIRUBIN,TOTAL 0.2 mg/dL (0.2-1.3); BLOOD UREA NITROGEN 12 mg/dL (7-17); CALCIUM 9.4 mg/dl (8.6-10.4); CARBON DIOXIDE 18 mmol/L (22-30); CHLORIDE 105 mmol/L (98-107); GFR AFRICAN-AMERICAN > 60; GLUCOSE,RANDOM 94 mg/dL (65-105); POTASSIUM 3.8 mmol/L (3.6-5.2); SODIUM 140 mmol/L (132-148); TOTAL PROTEIN 6.6 g/dL (6.3-8.3)
--- NOTE | 2017-02-23 20:08 | C.PDOC ---
History Of Present Illness 36 year old female who is 8 weeks gestation, P:1, presents to the ER with a complaint of vomiting and abdominal cramping for the past few days. Patient reports she has been taking reglan at home with minimal relief. Denies fever, vaginal bleeding, or other complaints. Time Seen by Provider: 02/23/17 18:46 Chief Complaint (Nursing): GI Problem History Per: Patient History/Exam Limitations: no limitations Onset/Duration Of Symptoms: Days Current Symptoms Are (Timing): Still Present Location Of Pain/Discomfort: Suprapubic Radiation Of Pain To:: None Quality Of Discomfort: Cramping Associated Symptoms: denies: Fever, Chills, Urinary Symptoms Exacerbating Factors: None Alleviating Factors: None Recent travel outside of the [place]: No Abnormal Vaginal Bleeding: No : 2 Para: 1 Past Medical History Reviewed: Historical Data, Nursing Documentation, Vital Signs Vital Signs: Last Vital Signs Temp 98.8 F 02/23/17 22:09 Pulse 98 H 02/23/17 22:09 Resp 20 02/23/17 22:09 BP 134/82 02/23/17 22:09 Pulse Ox 98 02/23/17 22:09 - Medical History PMH: Bipolar Disorder (has been off meds xyears), HTN, Migraine Surgical History: No Surg Hx - [facility] Procedures INDIV PSYCHOTHERAPY FOR SUBSTANCE ABUSE TREATMENT, SUPPORT (01/24/17) INDIVIDUAL PSYCHOTHERAPY, SUPPORTIVE (01/24/17) INSERTION OF ENDOTRACHEAL AIRWAY INTO TRACHEA, VIA OPENING (01/24/17) MEDICATION MANAGEMENT (01/24/17) RESPIRATORY VENTILATION, 24-96 CONSECUTIVE HOURS (01/24/17) Family History: States: Unknown Family Hx - Social History Hx Alcohol Use: No Hx Substance Use: No - Immunization History Hx Tetanus Toxoid Vaccination: No Hx Influenza Vaccination: No Hx Pneumococcal Vaccination: No Review Of Systems Constitutional: Negative for: Fever, Chills Gastrointestinal: Positive for: Vomiting, Abdominal Pain Genitourinary: Negative for: Dysuria, Hematuria, Vaginal Bleeding Skin: Negative for: Rash Neurological: Negative for: Weakness, Numbness Physical Exam - Physical Exam Appears: Non-toxic Skin: Normal Color, Warm, Dry Head: Atraumatic, Normacephalic Oral Mucosa: Moist Chest: Symmetrical, No Tenderness Cardiovascular: Rhythm Regular, No Murmur Respiratory: Normal Breath Sounds, No Rales, No Rhonchi, No Wheezing Gastrointestinal/Abdominal: Soft, Tenderness (Mild suprapubic) Neurological/Psych: Oriented x3, Normal Speech, Normal Cognition ED Course And Treatment - Laboratory Results Result Diagrams: 02/23/17 18:58 02/23/17 18:58 O2 Sat by Pulse Oximetry: 99 (Room air) Pulse Ox Interpretation: Normal Medical Decision Making Medical Decision Making: hyperemesis graviderum- labs US, ivf, antiemetic Plan: * IV fluids * Urinalysis * Transvaginal US * 1000: pt symptomatic, discussed with pt ogyn dr butler .accepts for admission Disposition - Disposition Disposition: HOSPITALIZED Disposition Time: 22:13 Condition: STABLE - Clinical Impression Clinical Impression: Hyperemesis gravidarum - Scribe Statement The provider has reviewed the documentation as recorded by the Scribe Chano Saini All medical record entries made by the Scribe were at my direction and personally dictated by me. I have reviewed the chart and agree that the record accurately reflects my personal performance of the history, physical exam, medical decision making, and the department course for this patient. I have also personally directed, reviewed, and agree with the discharge instructions and disposition. Decision To Admit - Pt Status Changed To: Hospital Disposition Of: Inpatient - Admit Certification Admit to Inpatient:: After my assessment, the patient will require hospitalization for at least two midnights. This is because of the severity of symptoms shown, intensity of services needed, and/or the medical risk in this patient being treated as an outpatient. - InPatient: Physician Admission Certification:: pt with hyperemeissi, needs ivf and antiemeitcs - . Bed Request Type: HOROLOGIST Admitting Physician: Vikki Watters Patient Diagnosis: Hyperemesis gravidarum
[2017-02-23 21:21] LABS: RBC URINE 1 /hpf (0-3); URINE BACTERIA RARE (<OCC); URINE BILIRUBIN NEGATIVE (NEGATIVE); URINE BLOOD NEGATIVE (NEGATIVE); URINE COLOR Yellow (YELLOW); URINE GLUCOSE (UA) NORMAL (Normal); URINE KETONE NEGATIVE (NEGATIVE); URINE LEUKOCYTE ESTERASE TRACE Leu/uL (Negative); URINE PROTEIN NEGATIVE (NEGATIVE); URINE UROBILINOGEN NORMAL mg/dL (0.2-1.0); WBC URINE < 1 /hpf (0-5)
--- NOTE | 2017-02-23 21:31 | US ---
EXAM: US First Trimester, Transabdominal, Fetus A CLINICAL HISTORY: 36 years old, female; Signs and symptoms; Lmp or gestational age (in weeks): 01/01/2017; Other: Vomiting; ; Additional info: Abd pain and pregnnat TECHNIQUE: Real-time transabdominal obstetrical ultrasound of the maternal pelvis and the first gestation (Fetus A) of a first trimester with image documentation. COMPARISON: No priors FINDINGS: There is a twin intrauterine gestation GESTATION A: Gestation: Gestational Sac Has Mean Diameter 22.4 Mm. Gallina rump length measures 10.2 mm. There is an embryonic heart rate of 142 beats per minute A yolk sac is present, internal diameter measures 3 mm. There is a 15.5 x 4.9 x 17.3 mm subchorionic hemorrhage: Uterus: Uterus measures approximately 12.1 x 6.7 x 7.5 cm. Ovaries: Right ovary measures 3.6 x 2.5 x 3.5 cm. Left ovary measures 3.9 x 2.2 x 3.6 cm.There is expected blood flow on Doppler imaging Free fluid: There is no free fluid. IMPRESSION: Twin intrauterine gestation, embryo A approximately 7 weeks 0 days with small subchorionic hemorrhage, estimated date of delivery 10/12/17 EXAM: US First Trimester Additional Gestation, Transabdominal, Fetus B EXAM DATE/TIME: 02/23/2017 6:51 PM CLINICAL HISTORY: 36 years old, female; Signs and symptoms; Lmp or gestational age (in weeks): 01/01/2017; Other: Vomiting; ; Additional info: Abd pain and pregnnat TECHNIQUE: Real-time transabdominal obstetrical ultrasound of the maternal pelvis and the second gestation (Fetus B) of a first trimester with image documentation. COMPARISON: There are no prior studies for comparison. FINDINGS: GESTATION B: Gestation: Gestational sac has mean diameter 21.2 mm. Gallina rump length measures 13 mm. There is embryonic heart rate of 144 beats per minute. A yolk sac is present, internal diameter measures 2 mm IMPRESSION: Twin intrauterine gestation, embryo B approximately 7 weeks 1 day
--- NOTE | 2017-02-23 22:34 | CP.PCM.HP ---
History of Present Illness - History of Present Illness History of Present Illness: 36 year old female who is 8 weeks gestation, P:1, presents to the ER with a complaint of vomiting and abdominal cramping for the past few days. Patient reports she has been taking reglan at home with minimal relief. Denies fever, vaginal bleeding, or other complaints. Patient reports that she has been unable to tolerate po since last night Present on Admission - Present on Admission Any Indicators Present on Admission: No Past Patient History - Past Medical History & Family History Past Medical History?: Yes - Past Social History Smoking Status: Never Smoked - CARDIAC Hx Hypertension: Yes - PULMONARY Hx Respiratory Disorders: No - NEUROLOGICAL Hx Migraine: Yes - HEENT Hx HEENT Problems: No - RENAL Hx Chronic Kidney Disease: No - ENDOCRINE/METABOLIC Hx Endocrine Disorders: No - HEMATOLOGICAL/ONCOLOGICAL Hx Blood Disorders: No - INTEGUMENTARY Hx Dermatological Problems: No - MUSCULOSKELETAL/RHEUMATOLOGICAL Hx Musculoskeletal Disorders: No - GASTROINTESTINAL Hx Gastrointestinal Disorders: No - GENITOURINARY/GYNECOLOGICAL Hx Genitourinary Disorders: No - PSYCHIATRIC Hx Bipolar Disorder: Yes (has been off meds xyears) Hx Substance Use: No - SURGICAL HISTORY Hx Surgeries: No - ANESTHESIA Hx Anesthesia: No Meds Allergies/Adverse Reactions: Allergies Allergy/AdvReac Type Severity Reaction Status Date / Time cephalexin [From Keflex] Allergy Verified 02/23/17 18:32 clindamycin Allergy Verified 02/23/17 18:32 Penicillins Allergy Verified 02/23/17 18:32 Sulfa (Sulfonamide Allergy Verified 02/23/17 18:32 Antibiotics) Physical Exam - Constitutional Appears: No Acute Distress - Respiratory Exam Respiratory Exam: Clear to Auscultation Bilateral, NORMAL BREATHING PATTERN - Cardiovascular Exam Cardiovascular Exam: REGULAR RHYTHM - GI/Abdominal Exam GI & Abdominal Exam: Normal Bowel Sounds, Soft. absent: Guarding, Tenderness - Extremities Exam Extremities exam: Negative for: calf tenderness - Back Exam Back exam: absent: CVA tenderness (L), CVA tenderness (R) - Neurological Exam Neurological exam: Alert, Oriented x3 - Psychiatric Exam Psychiatric exam: Normal Affect, Normal Mood - Skin Skin Exam: Normal Color Results - Vital Signs Recent Vital Signs: Last Vital Signs Temp 98.8 F 02/23/17 22:09 Pulse 98 H 02/23/17 22:09 Resp 20 02/23/17 22:09 BP 134/82 02/23/17 22:09 Pulse Ox 99 02/23/17 22:13 - Labs Result Diagrams: 02/23/17 18:58 02/23/17 18:58 Assessment & Plan (1) Hyperemesis gravidarum Status: Acute (2) History of bipolar disorder Assessment and Plan: not on meds for few years.monitor closely Status: Chronic (3) History of cocaine abuse Assessment and Plan: drug screen ordered Status: Chronic - Assessment and Plan (Free Text) Assessment: 36 y/o at 7 wga by ultrasound done today.Tin gestation.Baby A with subchorionic hemorrhage.Patient with nausea and vomiting.Failed outpatient therapy with reglan. -admit -iv fluids -antiemetics prn -monitor closely
[2017-02-23] MEDS ORDERED: Lactated Ringer's 1,000 ML IV SCH (22:45)
[2017-02-24] MEDS ORDERED: Lactated Ringer's 500 ML IV ONE (03:00)
[2017-02-24] MEDS ORDERED: Folic Acid 1 MG, Thiamine 100 MG, Multivitamin (MVI) 10 ML in Dextrose 5% In Water 1,00... IV SCH (12:00)
[2017-02-24 20:22] VITALS: PULSE 98
[2017-02-24] MEDS: Benzocaine/Menthol (Cepacol) Lozenge MT PRN (21:21)
[2017-02-25] MEDS: Benzocaine/Menthol (Cepacol) Lozenge MT PRN (03:38)
[2017-02-25 08:00] VITALS: BP 124/78; RESP 18; TEMP 98.8; O2SAT 99
[2017-02-25] MEDS ORDERED: Folic Acid 1 MG, Thiamine 100 MG, Multivitamin (MVI) 10 ML in Dextrose 5% In Water 1,00... IV SCH (10:00)
--- NOTE | 2017-02-25 11:16 | CP.PCM.PN ---
Subjective - Date & Time of Evaluation Date of Evaluation: 02/25/17 Time of Evaluation: 11:13 - Subjective Subjective: 36yo with Twin gestation admitted for Hyperemesis of .Patient feels much better able to tolerate diet Had voides. Patient states she has emotional support . Patient has history of depression. Patient any suicidal ideations or hallunication Objective - Vital Signs/Intake and Output Vital Signs (last 24 hours): Temp Pulse Resp BP Pulse Ox 98.8 F 98 H 18 124/78 99 02/25/17 07:30 02/25/17 07:30 02/25/17 07:30 02/25/17 07:30 02/25/17 07:30 - Medications Medications: Current Medications Benzocaine/Menthol (Cepacol Sore Throat) 1 nixon MT Q6 PRN PRN Reason: Sore Throat Last Admin: 02/25/17 03:38 Dose: 1 nixon Folic Acid 1 mg/ Thiamine HCl 100 mg/ Multivitamins/Vitamin C 10 ml/ Dextrose 1 ,011.2 mls @ 41 mls/hr IV .Q24H YUNIEL Last Admin: 02/25/17 10:23 Dose: 41 mls/hr Metoclopramide HCl (Reglan) 10 mg PO BID PRN PRN Reason: Nausea/Vomiting Last Admin: 02/25/17 07:35 Dose: 10 mg Promethazine HCl (Phenergan Inj) 25 mg IV Q6H PRN PRN Reason: Nausea/Vomiting Last Admin: 02/23/17 23:02 Dose: 25 mg - Constitutional Appears: Well - Head Exam Head Exam: ATRAUMATIC, NORMAL INSPECTION, NORMOCEPHALIC - Eye Exam Eye Exam: EOMI, Normal appearance, PERRL Pupil Exam: NORMAL ACCOMODATION, PERRL - Neck Exam Neck Exam: Full ROM, Normal Inspection. absent: Lymphadenopathy - Respiratory Exam Respiratory Exam: Clear to Ausculation Bilateral, NORMAL BREATHING PATTERN - Rectal Exam Rectal Exam: Deferred - Exam External exam: NORMAL EXTERNAL EXAM Speculum exam: NORMAL SPECULUM EXAM Bimanual exam: NORMAL BIMANUAL EXAM - Extremities Exam Extremities Exam: Full ROM, Normal Capillary Refill, Normal Inspection. absent : Joint Swelling, Pedal Edema - Back Exam Back Exam: NORMAL INSPECTION - Psychiatric Exam Psychiatric exam: Normal Affect, Normal Mood - Skin Skin Exam: Dry, Intact, Normal Color, Warm Assessment and Plan (1) Hyperemesis gravidarum Status: Acute - Assessment and Plan (Free Text) Assessment: 36 yo with hyperemesis feels better Plan: 36 with Depression Disease as well as Nausae and Vomiting of pregnacy Stable Discharge Home follow up with Dr. Bustamante Next week order
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
[2017-02-26] MEDS ORDERED: PROGESTERONE MICRONIZED 200 MG VG SCH (10:00)
== END 2017-02-25 14:30 | disposition home or self-care (01) | DRG 781 ==
LOC: C.ER 18:06 → C.4M 21:50
PROVIDERS: ADMIT Obstetrics & Gynecology; ATTEND Obstetrics & Gynecology
DX: O21.0 Mild hyperemesis gravidarum (principal); F31.9 Bipolar disorder, unspecified; F10.20 Alcohol dependence, uncomplicated; Z3A.08 8 weeks gestation of pregnancy; F43.10 Post-traumatic stress disorder, unspecified; O99.341 Other mental disorders complicating pregnancy, first trimester

== ENCOUNTER 2017-03-02 16:29 | Emergency (ER) | payer MEDICARE ==
[2017-03-02 16:30] VITALS: BMI 32.3
[2017-03-02 16:49] VITALS: O2SAT 99
[2017-03-02] MEDS ORDERED: Sodium Chloride 0.9% 1,000 ML IV ONE (17:10)
[2017-03-02] MEDS ORDERED: Sodium Chloride 0.9% 1,000 ML ONE (17:41)
[2017-03-02 17:42] LABS: BASO # 0.1 K/uL (0.0-0.2); BASO % 0.8 % (0.0-2.0); EOS # 0.1 K/uL (0.0-0.7); EOS % 1.1 % (0.0-4.0); HEMATOCRIT 38.2 % (34.0-47.0); LYMPH # 1.8 K/uL (1.0-4.3); LYMPH % 16.6 % (20.0-40.0); MEAN CELL VOLUME 89.7 fL (81.0-99.0); MEAN CORPUSCULAR HEMOGLOBIN 29.5 pg (27.0-31.0); MEAN CORPUSCULAR HGB CONC 32.9 g/dL (33.0-37.0); MEAN PLATELET VOLUME 8.2 fL (7.2-11.7); MONO # 0.7 K/uL (0.0-0.8); MONO % 6.7 % (0.0-10.0); RED CELL DISTRIBUTION WIDTH 13.3 % (11.5-14.5); WHITE BLOOD COUNT 11.2 K/uL (4.8-10.8)
[2017-03-02 17:53] LABS: CHLORIDE 106 mmol/L (98-107); SODIUM 139 mmol/L (132-148)
[2017-03-02 17:55] LABS: BILIRUBIN,TOTAL 0.3 mg/dL (0.2-1.3); GFR AFRICAN-AMERICAN > 60
[2017-03-02 17:56] LABS: ALB/GLOB RATIO 1.4 (1.0-2.1); ALKALINE PHOSPHATASE 51 U/L (38-126); ALT/SGPT 24 U/L (9-52); AST/SGOT 17 U/L (14-36); BLOOD UREA NITROGEN 12 mg/dL (7-17); CARBON DIOXIDE 21 mmol/L (22-30); GLUCOSE,RANDOM 80 mg/dL (65-105); TOTAL PROTEIN 6.4 g/dL (6.3-8.3)
[2017-03-02 17:57] LABS: CALCIUM 8.8 mg/dl (8.6-10.4)
--- NOTE | 2017-03-02 18:33 | C.PDOC ---
History Of Present Illness 36 year old female presents to the ED with complaints of constant lower abdominal cramping since last night with minimal vaginal spotting. Patient is 9 weeks with twins and was seen in ED two weeks ago. Patient was admitted for hyperemesis by OB and had an ultrasound performed showing live twin gestation. She denies nausea, vomiting, or fever. Time Seen by Provider: 03/02/17 17:08 Chief Complaint (Nursing): Female Genitourinary History Per: Patient History/Exam Limitations: no limitations Onset/Duration Of Symptoms: Hrs (began last night ) Current Symptoms Are (Timing): Still Present Severity: Moderate Pain Scale Rating Of: 6 Quality Of Discomfort: Cramping Associated Symptoms: denies: Fever, Chills, Nausea, Vomiting Recent travel outside of the [place]: No Additional History Per: Prior Records Abnormal Vaginal Bleeding: Yes Past Medical History Reviewed: Historical Data, Nursing Documentation, Vital Signs Vital Signs: Last Vital Signs Temp 98.6 F 03/02/17 16:45 Pulse 112 H 03/02/17 16:45 Resp 18 03/02/17 16:45 BP 131/76 03/02/17 16:45 Pulse Ox 99 03/02/17 18:39 - Medical History PMH: Bipolar Disorder (has been off meds xyears), HTN, Migraine - [facility] Procedures INDIV PSYCHOTHERAPY FOR SUBSTANCE ABUSE TREATMENT, SUPPORT (01/24/17) INDIVIDUAL PSYCHOTHERAPY, SUPPORTIVE (01/24/17) INSERTION OF ENDOTRACHEAL AIRWAY INTO TRACHEA, VIA OPENING (01/24/17) MEDICATION MANAGEMENT (01/24/17) RESPIRATORY VENTILATION, 24-96 CONSECUTIVE HOURS (01/24/17) Family History: States: Unknown Family Hx - Social History Hx Alcohol Use: No Hx Substance Use: No - Immunization History Hx Tetanus Toxoid Vaccination: No Hx Influenza Vaccination: No Hx Pneumococcal Vaccination: No Review Of Systems Constitutional: Negative for: Fever, Chills Cardiovascular: Negative for: Chest Pain, Palpitations Respiratory: Negative for: Cough, Shortness of Breath Gastrointestinal: Positive for: Abdominal Pain (abdominal cramping ). Negative for: Nausea, Vomiting, Diarrhea Genitourinary: Positive for: Vaginal Bleeding (minimal spotting ) Physical Exam - Physical Exam Appears: Non-toxic, No Acute Distress Skin: Warm, Dry Head: Atraumatic, Normacephalic Eye(s): bilateral: Normal Inspection Ear(s): Bilateral: Normal Oral Mucosa: Moist Throat: Normal, No Erythema, No Exudate Neck: Supple Chest: Symmetrical, No Deformity Cardiovascular: Rhythm Regular, No Murmur Respiratory: Normal Breath Sounds, No Rales, No Rhonchi, No Wheezing Gastrointestinal/Abdominal: Soft, No Tenderness, No Guarding, No Rebound Pelvic: Normal External Exam, Normal Speculum Exam, Normal Bimanual Exam Extremity: Normal ROM, No Tenderness Neurological/Psych: Oriented x3 ED Course And Treatment - Laboratory Results Result Diagrams: 03/02/17 17:37 03/02/17 17:37 O2 Sat by Pulse Oximetry: 99 (room air ) Progress Note: Transvaginal US, blood work, and labs were ordered. Patient was given IV fluids. Spoke to OB staff internist office based only and recommended for patient to manage conservatively. Also notes no reason to consult OB at this time. Disposition Counseled Patient/Family Regarding: Studies Performed - Disposition Disposition Time: 18:55 Condition: STABLE Forms: [facility] (Kyrgyz) - Clinical Impression Clinical Impression: Vaginal bleeding - Scribe Statement The provider has reviewed the documentation as recorded by the Scribe Laina Bernard All medical record entries made by the Scribe were at my direction and personally dictated by me. I have reviewed the chart and agree that the record accurately reflects my personal performance of the history, physical exam, medical decision making, and the department course for this patient. I have also personally directed, reviewed, and agree with the discharge instructions and disposition. Physician Patient Turnover Patient Signed Over To: Quincy Mack Handoff Comments: Patient 9 weeks , abdominal cramping, spotting, pending UA (r/o) UTI and US Decision To Admit - . Patient Diagnosis: Vaginal bleeding
[2017-03-02 19:17] LABS: URINE BACTERIA RARE (<OCC); URINE BILIRUBIN NEGATIVE (NEGATIVE); URINE BLOOD NEGATIVE (NEGATIVE); URINE COLOR Yellow (YELLOW); URINE GLUCOSE (UA) NORMAL (Normal); URINE KETONE NEGATIVE (NEGATIVE); URINE LEUKOCYTE ESTERASE 1+ Leu/uL (Negative); URINE PROTEIN NEGATIVE (NEGATIVE); URINE UROBILINOGEN NORMAL mg/dL (0.2-1.0)
[2017-03-02 19:20] LABS: RBC URINE 2 /hpf (0-3); WBC URINE 2 /hpf (0-5)
--- NOTE | 2017-03-02 20:15 | US ---
EXAM: US First Trimester, Transabdominal EXAM DATE/TIME: Exam ordered 03/02/2017 5:10 PM CLINICAL HISTORY: 36 years old, female; Pain; Other: Preg/pain and spotting; Gestational age or lmp: 8 wks; ; Additional info: and bleeding TECHNIQUE: Real-time transabdominal obstetrical ultrasound of the maternal pelvis and a first trimester with image documentation. COMPARISON: US - 1ST TRIMESTER SINGLE 02/23/2017 8:22:56 PM FINDINGS: Gestation: There are 2 gestational sacs noted within the uterus. The appears to be a dichorionic diamniotic twin . Fetus A is to the left. Fetus B is to the right A Biometry Gestational sac: 3.8 x 1.6 x 4.5 for a mean sac diameter 3.28 cm for a menstrual age of 8 weeks and 2 days. [place]-rump length: 1.7 8 cm for a menstrual age of 8 weeks and 2 days Heart rate: 163 beats per minute Yolk sac: Present and appears normal B Biometry Gestational sac: 3.26 x 2.87 x 3.51 cm for a mean sac diameter 3.21 cm for menstrual age of 8 weeks and 1 day [place] rump length: 1.73 cm for a menstrual age of 8 weeks and 1 day Heart rate: 161 beats per minute Yolk sac: Present and appears normal Uterus/cervix: The uterus measures 11.2 x 7.7 x 8.6 cm. The cervix measures 3.2 cm in length. Ovaries: The right ovary measures 4.1 x 2.9 x 4.3 cm. Subcentimeter follicles are present. Blood flow seen in the right ovary on color Doppler examination. The left ovary measures 4.1 x 3.3 x 2.4 cm. Subcentimeter follicles are present. Blood was demonstrated in the left are color Doppler examination. No mass. Free fluid: No free fluid. IMPRESSION: 1. Live dichorionic diamniotic twin . Twin A has a menstrual age of 8 weeks and 2 days plus or -4 days. Expected date of confinement 10/10/2017. Twin B has a menstrual age of 8 weeks and 1 day plus or -4 days. Expected date of confinement 10/11/2017.
[2017-03-02 21:42] VITALS: BP 124/73; PULSE 81; RESP 20; TEMP 98.1
== END 2017-03-02 21:40 | disposition home or self-care (01) ==
LOC: C.ER 16:29
DX: O20.0 Threatened abortion (principal); O36.0910 Maternal care for other rhesus isoimmunization, first trimester, not applicable or unspecified; O30.001 Twin pregnancy, unspecified number of placenta and unspecified number of amniotic sacs, first trimester; Z3A.08 8 weeks gestation of pregnancy
CPT/HCPCS: 76801; 80053; 81001; 84702; 84703; 85025; 86850; 86900; 99284; J2792; J7040

== ENCOUNTER 2017-03-31 16:29 | Emergency (ER) | payer MEDICARE ==
[2017-03-31 16:29] VITALS: BMI 32.3
[2017-03-31] MEDS ORDERED: Sodium Chloride 0.9% 1,000 ML IV ONE (16:58)
[2017-03-31 17:19] LABS: BASO # 0.1 K/uL (0.0-0.2); BASO % 0.6 % (0.0-2.0); EOS # 0.2 K/uL (0.0-0.7); EOS % 2.1 % (0.0-4.0); HEMATOCRIT 35.6 % (34.0-47.0); LYMPH % 20.3 % (20.0-40.0); MEAN CELL VOLUME 88.7 fL (81.0-99.0); MEAN CORPUSCULAR HEMOGLOBIN 30.2 pg (27.0-31.0); MEAN PLATELET VOLUME 7.7 fL (7.2-11.7); MONO # 0.7 K/uL (0.0-0.8); MONO % 7.3 % (0.0-10.0); NRBC % 0.1 % (0.0-2.0); WHITE BLOOD COUNT 9.8 K/uL (4.8-10.8)
[2017-03-31 17:21] LABS: CHLORIDE 106 mmol/L (98-107)
[2017-03-31 17:22] LABS: POTASSIUM 3.6 mmol/L (3.6-5.2); SODIUM 133 mmol/L (132-148)
[2017-03-31 17:24] LABS: AST/SGOT 16 U/L (14-36); BILIRUBIN,TOTAL 0.2 mg/dL (0.2-1.3); CARBON DIOXIDE 18 mmol/L (22-30); GFR AFRICAN-AMERICAN > 60; TOTAL PROTEIN 6.7 g/dL (6.3-8.3)
[2017-03-31 17:25] LABS: ALKALINE PHOSPHATASE 48 U/L (38-126); ALT/SGPT 31 U/L (9-52); BLOOD UREA NITROGEN 11 mg/dL (7-17); CALCIUM 8.7 mg/dl (8.6-10.4); GLUCOSE,RANDOM 91 mg/dL (65-105)
--- NOTE | 2017-03-31 18:07 | C.PDOC ---
History Of Present Illness 36 year old female with estimated due date 10/08/17 presents to the ED for evaluation of chronic headaches and possibly elevated BP. Patient reports that she took her BP at home prior to arrival and it was 185/140. She notes that she has a history of migraine headaches. Patient states that she had an ultrasound last month which showed twin gestation. She does not have history of proteinuria during this and no medical complications during her first . Chief Complaint (Nursing): Medical Clearance History Per: Patient History/Exam Limitations: no limitations Past Medical History Reviewed: Historical Data, Nursing Documentation, Vital Signs Vital Signs: Last Vital Signs Temp 98.2 F 03/31/17 18:51 Pulse 102 H 03/31/17 18:51 Resp 20 03/31/17 18:51 BP 100/70 03/31/17 18:51 Pulse Ox 99 04/01/17 00:24 - Medical History PMH: Bipolar Disorder (has been off meds xyears), HTN, Migraine Denies: Chronic Kidney Disease - [facility] Procedures INDIV PSYCHOTHERAPY FOR SUBSTANCE ABUSE TREATMENT, SUPPORT (01/24/17) INDIVIDUAL PSYCHOTHERAPY, SUPPORTIVE (01/24/17) INSERTION OF ENDOTRACHEAL AIRWAY INTO TRACHEA, VIA OPENING (01/24/17) MEDICATION MANAGEMENT (01/24/17) RESPIRATORY VENTILATION, 24-96 CONSECUTIVE HOURS (01/24/17) Family History: States: Unknown Family Hx - Social History Hx Alcohol Use: No Hx Substance Use: No - Immunization History Hx Tetanus Toxoid Vaccination: No Hx Influenza Vaccination: No Hx Pneumococcal Vaccination: No Review Of Systems Genitourinary: Positive for: Other ( ) Neurological: Positive for: Headache Physical Exam - Physical Exam Appears: Non-toxic, No Acute Distress Skin: Normal Color, Warm, Dry Head: Atraumatic, Normacephalic Eye(s): bilateral: Normal Inspection, PERRL, EOMI Oral Mucosa: Moist Cardiovascular: Rhythm Regular, No Murmur Respiratory: Normal Breath Sounds (Clear to ascultation ) Gastrointestinal/Abdominal: No Tenderness, Other (Abdomen gravid) Extremity: No Pedal Edema, No Deformity Neurological/Psych: Oriented x3, Normal Speech ED Course And Treatment - Laboratory Results Result Diagrams: 03/31/17 17:08 03/31/17 17:08 O2 Sat by Pulse Oximetry: 99 Medical Decision Making Medical Decision Makin03/31/17 18:55 On reevaluation patient is feeling better. Will discharge home for follow up with OB this week. Disposition - Disposition Disposition: HOME/ ROUTINE Disposition Time: 18:20 Condition: GOOD Additional Instructions: Thank you for letting us take care of you today. Your provider was Dr. Gonzalez. You were treated for headache. The emergency medical care you received today was directed at your acute symptoms. If you were prescribed any medication, please fill it and take as directed. It may take several days for your symptoms to resolve. Return to the Emergency Department if your symptoms worsen, do not improve, or if you have any other problems. Please contact your doctor or call one of the physicians/clinics you have been referred to that are listed on the Patient Visit Information form that is included in your discharge packet. Bring any paperwork you were given at discharge with you along with any medications you are taking to your follow up visit. Our treatment cannot replace ongoing medical care by a primary care provider (PCP) outside of the emergency department. Thank you for allowing the [facility] team to be part of your care today. Follow up with your OPERATING THEATRE TECHNICIAN doctor in 3-4 days for re-evaluation and further management. Instructions: at 11 to 14 Weeks (ED) Forms: [facility] (Wolof) - Clinical Impression Clinical Impression: Twin gestation in first trimester - Scribe Statement The provider has reviewed the documentation as recorded by the Trinityibflakito Dietrich Provider Attestation: All medical record entries made by the Scribe were at my direction and personally dictated by me. I have reviewed the chart and agree that the record accurately reflects my personal performance of the history, physical exam, medical decision making, and the department course for this patient. I have also personally directed, reviewed, and agree with the discharge instructions and disposition.
[2017-03-31 18:23] LABS: RBC URINE 10 /hpf (0-3); URINE BACTERIA MOD (<OCC); URINE BILIRUBIN NEGATIVE (NEGATIVE); URINE BLOOD NEGATIVE (NEGATIVE); URINE COLOR Yellow (YELLOW); URINE GLUCOSE (UA) NORMAL (Normal); URINE KETONE NEGATIVE (NEGATIVE); URINE LEUKOCYTE ESTERASE 1+ Leu/uL (Negative); URINE PROTEIN NEGATIVE (NEGATIVE); URINE UROBILINOGEN NORMAL mg/dL (0.2-1.0); WBC URINE 10 /hpf (0-5)
[2017-03-31 18:52] VITALS: BP 100/70; PULSE 102; RESP 20; TEMP 98.2
[2017-03-31 18:55] VITALS: O2SAT 99
== END 2017-03-31 18:59 | disposition home or self-care (01) ==
LOC: C.ER 16:29
DX: O30.001 Twin pregnancy, unspecified number of placenta and unspecified number of amniotic sacs, first trimester (principal); Z3A.00 Weeks of gestation of pregnancy not specified
CPT/HCPCS: 80053; 81001; 83690; 85025; 96374; 99283; J2765; J7040

== ENCOUNTER 2017-04-11 14:58 | Emergency (ER) | payer MEDICARE ==
[2017-04-11 15:11] VITALS: BMI 34.2
[2017-04-11 15:14] VITALS: O2SAT 100
--- NOTE | 2017-04-11 15:35 | C.PDOC ---
History Of Present Illness 36 year old female, whose PMHx includes migraines and is currently around 14 weeks gestational age with twins, presents to the ED for evaluation of a fontal headache which began two days ago. Patient states her symptoms are intense and associated with sensitivity to light and sound, nausea and blurry vision which began today. Patient states she normally takes Percocet and Fioricet for her migraines, but has only been taking Tylenol. Patient denies chest pain, shortness of breath, dizziness, vomiting, diarrhea. Patient is Patient's current is complicated by hyperemesis and gestational hypertension Patient's previous was complicated by nausea and carried to term. Time Seen by Provider: 04/11/17 15:19 Chief Complaint (Nursing): Headache History Per: Patient History/Exam Limitations: no limitations Onset/Duration Of Symptoms: Days (2) Current Symptoms Are (Timing): Still Present Quality: Aching, "Pain" Preceeding Symptoms: Visual Disturbances, Known Migraine Symptoms Associated Symptoms: Photophobia, Blurred Vision. denies: Nausea, Vomiting, Extremity Weakness Additional History Per: Patient Past Medical History Reviewed: Historical Data, Nursing Documentation, Vital Signs Vital Signs: Last Vital Signs Temp 98.5 F 04/11/17 15:11 Pulse 101 H 04/11/17 15:11 Resp 18 04/11/17 15:11 BP 126/84 04/11/17 15:11 Pulse Ox 100 04/11/17 17:07 - Medical History PMH: Bipolar Disorder (has been off meds xyears), HTN, Migraine Surgical History: No Surg Hx - [facility] INDIV PSYCHOTHERAPY FOR SUBSTANCE ABUSE TREATMENT, SUPPORT (01/24/17) INDIVIDUAL PSYCHOTHERAPY, SUPPORTIVE (01/24/17) INSERTION OF ENDOTRACHEAL AIRWAY INTO TRACHEA, VIA OPENING (01/24/17) MEDICATION MANAGEMENT (01/24/17) RESPIRATORY VENTILATION, 24-96 CONSECUTIVE HOURS (01/24/17) Family History: States: Unknown Family Hx - Social History Hx Alcohol Use: No Hx Substance Use: No - Immunization History Hx Tetanus Toxoid Vaccination: No Hx Influenza Vaccination: No Hx Pneumococcal Vaccination: No Review Of Systems Cardiovascular: Negative for: Chest Pain Respiratory: Negative for: Shortness of Breath Gastrointestinal: Negative for: Vomiting, Diarrhea Genitourinary: Negative for: Vaginal Discharge, Vaginal Bleeding, Pelvic Pain Neurological: Negative for: Dizziness Physical Exam - Physical Exam Appears: Non-toxic, Other (uncomfortable ) Skin: Normal Color, Warm, Dry Head: Atraumatic, Normacephalic Eye(s): bilateral: Normal Inspection, PERRL, EOMI Ear(s): Bilateral: Normal Nose: Normal, No Discharge Oral Mucosa: Moist Throat: Normal, No Erythema, No Exudate Neck: Supple Chest: Symmetrical, No Deformity, No Tenderness Cardiovascular: Rhythm Regular, No Murmur Respiratory: Normal Breath Sounds, No Rales, No Rhonchi, No Wheezing Gastrointestinal/Abdominal: Bowel Sounds (normal ), Soft, No Tenderness ( including epigastric and right upper quadrant ), No Distention, No Guarding, No Rebound Extremity: Normal ROM, Capillary Refill (less than 2 seconds ) Neurological/Psych: Oriented x3, Normal Speech, Normal Cognition Gait: Steady ED Course And Treatment - Laboratory Results Result Diagrams: 04/11/17 16:25 04/11/17 16:25 O2 Sat by Pulse Oximetry: 100 (on RA) Pulse Ox Interpretation: Normal Medical Decision Making Medical Decision Making: Progress: Bloodwork and UA ordered and reviewed. Reglan and IV Fluids administered. Case discussed with Dr. Connell, who is currently covering for patient's high risk provide, who advises to give Fioricet. Fioricet administered. Disposition Counseled Patient/Family Regarding: Diagnosis, Need For Followup, Rx Given - Disposition Disposition: HOME/ ROUTINE Disposition Time: 17:14 Condition: STABLE Additional Instructions: Follow up with your doctor. Drink plenty water. Prescriptions: Acetaminophen/Butalbital/Caf [Fioricet] 1 tab PO TID PRN #6 tab PRN Reason: Headache Instructions: Migraine Headache (ED) Forms: [facility] (Salvadorean), General Discharge Instructions - POA Present On Arrival: None - Clinical Impression Clinical Impression: Migraine - Scribe Statement The provider has reviewed the documentation as recorded by the Scribe (Meena Roldan) Provider Attestation: All medical record entries made by the Scribe were at my direction and personally dictated by me. I have reviewed the chart and agree that the record accurately reflects my personal performance of the history, physical exam, medical decision making, and the department course for this patient. I have also personally directed, reviewed, and agree with the discharge instructions and disposition.
[2017-04-11] MEDS ORDERED: Apap-Butalbital-Caffeine 325-50-40mg Tab PO STA (15:49)
[2017-04-11] MEDS ORDERED: Sodium Chloride 0.9% 1,000 ML ONE (16:05)
[2017-04-11] MEDS: Sodium Chloride 0.9% 1,000 ML IV ONE (16:09)
[2017-04-11 16:31] LABS: BASO # 0.1 K/uL (0.0-0.2); BASO % 0.9 % (0.0-2.0); EOS # 0.1 K/uL (0.0-0.7); EOS % 1.4 % (0.0-4.0); HEMATOCRIT 38.5 % (34.0-47.0); LYMPH % 19.6 % (20.0-40.0); MEAN CELL VOLUME 88.6 fL (81.0-99.0); MEAN CORPUSCULAR HEMOGLOBIN 30.2 pg (27.0-31.0); MEAN CORPUSCULAR HGB CONC 34.1 g/dL (33.0-37.0); MEAN PLATELET VOLUME 8.2 fL (7.2-11.7); MONO # 0.6 K/uL (0.0-0.8); MONO % 6.1 % (0.0-10.0); WHITE BLOOD COUNT 10.1 K/uL (4.8-10.8)
[2017-04-11 16:51] LABS: CHLORIDE 100 mmol/L (98-107); POTASSIUM 3.8 mmol/L (3.6-5.2); SODIUM 131 mmol/L (132-148)
[2017-04-11 16:52] LABS: RBC URINE < 1 /hpf (0-3); URINE BACTERIA OCC (<OCC); URINE BILIRUBIN NEGATIVE (NEGATIVE); URINE BLOOD NEGATIVE (NEGATIVE); URINE COLOR Straw (YELLOW); URINE GLUCOSE (UA) NORMAL (Normal); URINE KETONE NEGATIVE (NEGATIVE); URINE LEUKOCYTE ESTERASE NEG Leu/uL (Negative); URINE PROTEIN NEGATIVE (NEGATIVE); URINE UROBILINOGEN NORMAL mg/dL (0.2-1.0); WBC URINE 1 /hpf (0-5)
[2017-04-11 16:53] LABS: BILIRUBIN,TOTAL 0.5 mg/dL (0.2-1.3); GFR AFRICAN-AMERICAN > 60
[2017-04-11 16:54] LABS: ALB/GLOB RATIO 1.6 (1.0-2.1); ALKALINE PHOSPHATASE 58 U/L (38-126); ALT/SGPT 27 U/L (9-52); AST/SGOT 22 U/L (14-36); BLOOD UREA NITROGEN 12 mg/dL (7-17); CALCIUM 8.6 mg/dl (8.6-10.4); CARBON DIOXIDE 18 mmol/L (22-30); GLUCOSE,RANDOM 66 mg/dL (65-105); TOTAL PROTEIN 6.3 g/dL (6.3-8.3)
[2017-04-11] MEDS: Apap-Butalbital-Caffeine 325-50-40mg Tab PO STA (17:18)
[2017-04-11] MEDS ORDERED: Apap-Butalbital-Caffeine 325-50-40mg Tab ONE (17:18)
[2017-04-11 18:00] VITALS: BP 121/78; PULSE 82; RESP 16; TEMP 97.9
== END 2017-04-11 17:59 | disposition home or self-care (01) ==
LOC: C.ER 14:58
DX: O26.892 Other specified pregnancy related conditions, second trimester (principal); G43.909 Migraine, unspecified, not intractable, without status migrainosus; Z3A.14 14 weeks gestation of pregnancy
CPT/HCPCS: 80053; 81001; 85025; 96361; 96374; 99285; G0480; J2765; J7040